=== PATIENT | female | born 1955 | race Caucasian/White ===

== ENCOUNTER 2016-11-15 12:49 | Outpatient (CLI) | payer OTHER ==
--- NOTE | 2016-11-15 15:50 | CT ---
CT CHEST PULMONARY SCAN: HISTORY: Lung screen. Smoker for 40 years but has recently quit. COMPARISON: None. FINDINGS: LUNG SCREENING SPECIFIC (LUNG-RADS): There are numerous sub-3 mm pulmonary nodules throughout the lungs. No 4 mm or greater pulmonary no dules. LUNG RADS CATEGORY S: POTENTIALLY SIGNIFICANT INCIDENTALS: None. PULMONARY INCIDENTALS: There are numerous micronodules scattered throughout the lungs, some of which are calcified. No pneumothorax or effusion. No focal airspace consolidation. OTHER INCIDENTALS: Low-grade coronary artery calcifications and aortic calcifications. There is a Schmorl's node at L1 . No suspicious lytic or blastic lesions in the skeleton. Evidence for old right anterior 2nd, 3rn d, 4th, 5th, and 6th rib fractures. Old right posterior 9th rib fracture and 10th rib fracture. Old left posterior 7th rib fracture. Upper abdomen is unremarkable. IMPRESSION: 1. Lung RADS category 2: Benign appearance or behavior. Continue annual screening with low-dose C T in 12 months. 2. Lung RADS category S: Negative. No new or unknown potentially significant incidental findings requiring urgent additional evaluation. 3. Incidental findings as above. POS: [facility]
== END 2016-11-15 12:50 | disposition home or self-care (01) ==
LOC: CT 12:49
PROVIDERS: ATTEND Family Medicine
DX: Z72.0 Tobacco use (principal)
CPT/HCPCS: G0297

== ENCOUNTER 2017-01-31 12:13 | Inpatient (IN) | payer SELFPAY ==
[2017-01-31 12:55] LABS: Hematocrit 43.2 % (36.0-47.0); Mean Platelet Volume 8.1 fL (7.4-10.4); Red Blood Cell (RBC) Count 3.88 mill/uL (4.20-5.40); White Blood Cell (WBC) Count 4.1 thou/uL (4.8-10.8)
[2017-01-31 13:08] LABS: ALT (SGPT) 279 U/L (8-55); AST (SGOT) 367 U/L (5-34); Alkaline Phosphatase 328 U/L (40-150); Anion Gap 14 mmol/L (10-20); BUN (Urea Nitrogen) 4 mg/dL (9.8-20.1); Calc. Creatinine Clearance 0 mL/min (70-130); Calcium 8.6 mg/dL (7.8-10.44); Carbon Dioxide 30 mmol/L (23-31); Chloride 93 mmol/L (98-107); Estimated GFR-MDRD 89; Globulin 4.2 g/dL (2.4-3.5); Lipase 128 U/L (8-78); Protein, Total 7.2 g/dL (6.0-8.3)
[2017-01-31 13:09] LABS: Macrocytosis MODERATE=16-30 cells (100X) (0-5/hpf); Neutrophil 62 % (42-75); Reactive Lymphocytes 1 % (0-10)
[2017-01-31] MEDS ORDERED: Ondansetron HCl/PF 4 MG/2 ML Vial ONE (13:13)
--- NOTE | 2017-01-31 13:20 | ULT ---
RIGHT UPPER QUADRANT ULTRASOUND: DATE: 01/31/17. HISTORY: Nausea, vomiting, and pain. FINDINGS: Multiple longitudinal and transverse images of the right upper quadrant of the abdomen were obtained using a multihertz curvilinear transducer. Real-time color flow images as well as spectral waveform Doppler analysis were used to evaluate the right upper quadrant. The liver somewhat lobular in appearance with heterogeneous echogenicity. This may represent some ch anges of cirrhosis. Gallbladder sludge is noted within the gallbladder. Some pericholecystic fluid is seen. There is a moderate degree of gallbladder wall thickening measuring approximately 3 mm. A small amount of free ascites is seen. The pancreas is not well visualized. The common bile duct i s of normal size measuring 5 mm. The right kidney is unremarkable. IMPRESSION: 1. Nodular appearance of the liver with some ascites. 2. Gallbladder wall thickening and sludge. POS: [facility]
[2017-01-31 13:46] LABS: Bilirubin Moderate (Negative); Blood, Urine Negative (Negative); Glucose, Urine (Dipstick) Negative (Negative); Ketone, Urine 15 mg/dL (Negative); Nitrite Positive (Negative); Protein, Urine (Dipstick) Trace mg/dL (Neg-Trace)
[2017-01-31 14:01] LABS: Bacteria/HPF 1+ HPF (None Seen); RBC/HPF None Seen HPF (0-3); Squamous Epithelial 0-3 HPF (0-3); WBC/HPF 0-3 HPF (0-3)
[2017-01-31 14:02] LABS: Hyaline Casts/LPF 0-3 HYALINE CAST LPF (0-3 Hyaline)
[2017-01-31] MEDS ORDERED: Potassium Chloride 40 MEQ in Sodium Chloride 0.9% 500 ML IVPB SCH (14:15)
[2017-01-31 15:45] LABS: Magnesium 1.4 mg/dL (1.6-2.6); Phosphorus 2.2 mg/dL (2.3-4.7)
[2017-01-31 15:48] LABS: Prothrombin Time 20.8 SEC (12.0-14.7)
[2017-01-31 15:49] LABS: PTT 41.9 SEC (22.9-36.1)
[2017-01-31] MEDS ORDERED: Ondansetron ODT 4 MG TAB SL PRN (15:50)
[2017-01-31] MEDS ORDERED: Ondansetron HCl/PF 4 MG/2 ML Vial IVP PRN ×2 (15:50→17:21)
[2017-01-31] MEDS ORDERED: Dextrose 5 % And 0.9 % NaCl 1,000 ML IV SCH (16:00)
[2017-01-31 17:04] VITALS: BMI 24.3
[2017-01-31] MEDS ORDERED: Mag-Al 1200 mg/1200 mg/30 ML UDCUP PO PRN (17:21)
[2017-01-31] MEDS ORDERED: cloNIDine 0.1 MG TAB PO PRN (17:21)
[2017-01-31] MEDS ORDERED: Labetalol HCl 100 MG/20 ML VIAL SLOW IVP PRN (17:21)
[2017-01-31] MEDS ORDERED: Bisacodyl 10 MG SUPP PR PRN (17:21)
[2017-01-31] MEDS ORDERED: Polyethylene Glycol 3350 17 GM Packet PO PRN (17:21)
[2017-01-31] MEDS ORDERED: Eucerin (Mineral Oil/Petrolatum,White) 30 gm Jar TOP PRN (17:21)
[2017-01-31] MEDS ORDERED: Calcium Carbonate 500 MG ChewTAB PO PRN (17:21)
[2017-01-31] MEDS ORDERED: Lorazepam 0.5 MG TAB PO PRN (17:21)
[2017-01-31] MEDS ORDERED: Ondansetron ODT 4 MG TAB PO PRN (17:21)
[2017-01-31] MEDS ORDERED: Loratadine 10 MG TAB PO PRN (17:21)
[2017-01-31] MEDS ORDERED: Folic Acid 1 MG TAB PO SCH (17:45)
--- NOTE | 2017-01-31 17:54 | CON ---
DATE OF CONSULTATION: 01/31/2017 REQUESTING PHYSICIAN: Dr. Borjas. REASON FOR CONSULTATION: Elevated LFTs. HISTORY OF PRESENT ILLNESS: Marii Pichardo is a 61-year-old woman who was admitted to the [facility] earlier today with symptoms of upper abdominal discomfort and poor appetite for the past week, found to have significantly elevated LFTs. She has a history of long-term heavy alcohol use. She s ays she will have at least 4 alcoholic beverages per day and this has been her pattern for many years . She has also been a long-term smoker, though she quit smoking about 3 months ago successfully. Th ere is no family history of gastrointestinal or liver illness. She has no chronic gastrointestinal s ymptoms except for some chronic reflux for which she has been taking omeprazole for a while. She was recently changed to pantoprazole without any significant change and chronic reflux symptoms; however , over the past week, she has been having some epigastric discomfort and fullness also increased gag reflex and feeling of fatigue. She has felt nauseated, though she has had no significant vomiting. Her oral intake has declined when symptoms started about a week ago. She quit drinking alcohol and s he says she have not had anything to drink for the past week. Symptoms continued to worsen and that prompted her presentation. She was found to have total bilirubin up to 6.0 with elevation in transam inases as well. AST 367, ALT 279, she appears coagulopathic as well as INR 1.7 and thrombocytopenic with platelets 73. She had an abdominal ultrasound and this demonstrated a lobular liver contour sug gestive of possible cirrhosis. The gallbladder wall is thickened at 3 mm and there is some perichole cystic fluid/ascites. There is sludge within the gallbladder, but the common bile duct is normal aneta meter 5 mm. She was evaluated by Dr. Ortega who does not feel this represents acute cholecystitis, but rather decompensation of cirrhosis. The patient is actually fairly comfortable. Her abdominal d iscomfort has all been in the epigastrium and not in the right upper quadrants. There have been no a ssociated fevers or change in bowel habits with this. REVIEW OF SYSTEMS: Full review of systems including constitutional, head, eyes, ears, nose, throat, GI, , cardiovascular, respiratory, musculoskeletal, and neurologic systems is negative except as no bronwyn in HPI. PAST MEDICAL HISTORY: GERD, hyperlipidemia, asthma. ALLERGIES: SULFA. OUTPATIENT MEDICATIONS: Omeprazole daily, vitamin D3, vitamin B complex. INPATIENT MEDICATIONS: Zofran p.r.n. SOCIAL HISTORY: The patient quit smoking about 3 months ago. She continues to drink alcohol at leas t 4 beverages per day. No drug use. FAMILY HISTORY: Negative for GI, liver illness, or malignancy. PHYSICAL EXAMINATION: VITAL SIGNS: Temperature 97.8, blood pressure 130/70, pulse 88, 99% oxygen saturation on room air. GENERAL: A 61-year-old woman lying in bed comfortably in no acute distress. SKIN: Mild jaundice. No rash visible or palpable. EYES: Mild scleral icterus. Extraocular movements intact. ENT: Mucous membranes moist, no oral lesions. LYMPH: No submandibular, supraclavicular lymphadenopathy. THYROID: Nontender to palpation. HEART: Regular rate and rhythm. LUNGS: Clear to auscultation bilaterally. ABDOMEN: Nondistended. Bowel sounds present. Soft. Some mild tenderness to palpation in the epiga strium, but no guarding, rebound tenderness. She is really not tender in the right upper quadrant. EXTREMITIES: No peripheral edema. VESSELS: Radial pulses 2+ bilaterally. NEUROLOGICAL: Cranial nerves II-XII intact bilaterally. LABORATORY STUDIES: Total bilirubin 6.0, alkaline phosphatase 328, AST 367, ALT 279, albumin 3.0, li pase 128. TSH 0.88. INR 1.7. Platelets 73, hemoglobin 14.2, WBC 4.1. BUN only 4, creatinine only 0.67. Looking back on lab work from 09/30/2016, she had a mild elevation in AST to 89, but otherwise normal LFTs at that time. IMAGING STUDIES: Abdominal ultrasound from earlier today shows lobular liver contour suggestive of c irrhosis. There is gallbladder wall thickening and pericholecystic fluid. A small amount of ascites . There is gallbladder sludge and common bile duct with normal diameter of 5 mm. ASSESSMENT AND PLAN: 1. Elevated liver function tests. 2. Chronic alcohol abuse. 3. Upper abdominal pain. 4. Probable cirrhosis. It is unclear to me to what degree her presenting symptoms are related to in itial decompensation of chronic liver disease versus acute gallbladder pathology. I agree that her p ain symptoms certainly are not very striking, but it does appear LFTs have dramatically elevated sinc e this past September. I suspect she certainly has alcohol related cirrhosis, and likely has some chron ic or subacute cholecystitis on top of that. Dr. Ortega has evaluated her and is not planning on an y cholecystectomy. With normal common bile duct, I do not think ERCP is warranted at this time. We should trend the LFTs daily. I will order further liver lab workup to be drawn tomorrow morning. We will trend her INR. If the patient's pain complaints are persistent and LFTs not declining, then we would further consider biliary pathology. Thank you for the consultation. Please call back with questions or concerns.
[2017-01-31] MEDS: K-Phos Neutral 250 MG TAB PO SCH ×2 (17:58→21:10)
[2017-01-31] MEDS: NS 0.9% w/ 40 MEQ KCL 1,000 ML IV SCH (17:59)
[2017-01-31] MEDS ORDERED: Phytonadione 10 MG/ML AMP PO SCH (18:00)
[2017-01-31] MEDS ORDERED: Potassium Chloride 10 MEQ TAB PO SCH (18:00)
[2017-01-31] MEDS ORDERED: Polyethylene Glycol 3350 17 GM Packet PO SCH (18:00)
--- NOTE | 2017-01-31 18:13 | HP ---
DATE OF ADMISSION: 01/31/2017 PRIMARY CARE PHYSICIAN: Demetris Piña MD CHIEF COMPLAINT: Abdominal discomfort with nausea, vomiting of approximately one week duration. HISTORY OF PRESENT ILLNESS: Patient is a 61-year-old female with chronic alcoholism, who presented to the emergency room with above complaints. Over the last one week, the patient has abdominal bloating with nausea and vomiting. Her last bowel movement was 4 days ago. The vomitus was nonbilious. She was unable to keep any food or liquid down due to this. The abdominal pain was mainly in the epigastric region, moderate in intensity, more or less constant without any aggravating or relieving factor. No fevers, chills, chest pain, palpitations, lightheadedness, dizziness or syncope reported. In the emergency room, initial vital signs showed temperature 98.5, respiration 18, pulse of 91, blood pressure 140/78 with O2 saturation 99% on room air. Her labs were consistent with total bilirubin of 6.0, AST of 367, ALT 279 with alkaline phosphatase 328. She was evaluated by General Surgery, Dr. Ortega for possible acute cholecystitis, which was later ruled out. Abdominal ultrasound showed nodular appearance of the liver with some myositis and gallbladder wall thickening with sludge. PAST MEDICAL HISTORY: 1. Hyperlipidemia. 2. Gastroesophageal reflux disease. 3. Chronic alcoholism. 4. Former smoker. 5. SULFA allergy. PAST SURGICAL HISTORY: 1. [facility], which was essentially negative except for internal hemorrhoids. 2. D&C in 1976. 3. Left breast biopsy in 1976. ALLERGIES: SULFA. CURRENT HOME MEDICATIONS: 1. Protonix 40 mg daily that was started 2 days ago by her PCP. 2. Lipitor 10 mg daily. 3. Multiple over the counter medications, she is unable to recall the names. SOCIAL HISTORY: Patient currently lives at home. No smoking. No current use of smoking, alcohol or drug use. She quit smoking in October of this year. She continues to drink 3-4 beers on a daily basis. She drinks liquor intermittently. Her last drink was approximately a week ago. She denies any history of withdrawal. She is . FAMILY HISTORY: Father with lung cancer. Mother with diabetes. She denies any history of GI malignancy or cirrhosis. REVIEW OF SYSTEMS: The following complete review of systems was negative, unless otherwise mentioned in the HPI or below: CONSTITUTIONAL: Weight loss or gain, ability to conduct usual activities. SKIN: Rash, itching. EYES: Double vision, pain. ENT/MOUTH: Nose bleeding, neck stiffness, pain, tenderness. CARDIOVASCULAR: Palpitations, dyspnea on exertion, orthopnea. RESPIRATORY: Shortness of breath, wheezing, cough, hemoptysis, fever or night sweats. GASTROINTESTINAL: Poor appetite, abdominal pain, heartburn, nausea, vomiting, constipation, or diarrhea. GENITOURINARY: Urgency, frequency, dysuria, nocturia. MUSCULOSKELETAL: Pain, swelling. NEUROLOGIC/PSYCHIATRIC: Anxiety, depression. ALLERGY/IMMUNOLOGIC: Skin rash, bleeding tendency. PHYSICAL EXAMINATION: VITAL SIGNS: As discussed above. GENERAL: A 61-year-old female in no apparent distress. Feels generally weak. HEENT: Head atraumatic, normocephalic. Sclerae mildly icteric. No oral lesion. NECK: Supple. No JVD appreciated. No carotid bruit. LUNGS: Showed diminished air entry at bases. No wheezing or rhonchi. Lungs were symmetrical. Trachea midline. HEART: S1, S2 present. Regular rate and rhythm. No murmurs, rubs or gallops appreciated. ABDOMEN: Soft, mild epigastric tenderness. No rebound or guarding. There was questionable shifting dullness, no flank tenderness. EXTREMITIES: No edema or calf tenderness. NEUROLOGIC: Grossly nonfocal, moves all 4 extremities, no asterixis. PSYCHIATRY: Alert, awake, oriented x3. SKIN: Warm and dry. LYMPH NODES: No palpable lymph nodes in the neck. PERIPHERAL VASCULAR: Radial pulses palpable bilaterally. MUSCULOSKELETAL: No joint swelling or tenderness. LABORATORY AND X-RAY FINDINGS: CBC showed WBC 4.1 with hemoglobin 14.2, platelet count of 73. PT of 20.8, INR 1.7, PTT 41.9. Chemistries showed sodium 134, potassium 2.8, chloride 93, bicarbonate of 30, BUN 4, creatinine 0.67 and glucose of 125. Magnesium 1.4, phosphorus 2.2. Lipase was 128. Urinalysis was negative for WBC. It showed 1+ bacteria with moderate amount of bilirubin. Abdominal ultrasound as discussed above. IMPRESSION: 1. Generalized weakness with nausea, vomiting, and abdominal discomfort ?etio 2. Abn LFTs probably due to Alcoholic Hepatitis . 3. Coagulopathy with thrombocytopenia secondary to #2 ?cirrhosis 4. Hypokalemia/Hypomagnesemia/Hypophosphatemia/Hyponatremia. 5. Chronic Alcoholism 6. Ascites prob due to ?cirrhosis 7. Gastroesophageal reflux disease on PPIs/Hyperlipidemia on statins. PLAN: The patient will be monitored on the medical floor. GI will be consulted. We will replace electrolytes. The patient was extensively counseled to quit drinking. Thiamine, folic acid, multivitamins. Recheck labs in a.m. Gentle IV hydration. Hold Statins due to Abn LFTs Plan of care was discussed with the patient and the family at the bedside. They stated understanding. MTDD
--- NOTE | 2017-01-31 18:14 | CON ---
DATE OF CONSULTATION: 01/31/2017 CHIEF COMPLAINT: Upper abdominal pain. HISTORY OF PRESENT ILLNESS: This is a 61-year-old female with a history of fairly acute onset of upp er abdominal pain. She states that it was sharp across the upper abdomen associated with nausea. He r sister says she has been vomiting on and off for 2 weeks. Seen in the Emergency Department, where she was found to have right upper quadrant pain specifically an ultrasound revealed question of thom cystitis. The patient denies previous known history of jaundice, pancreatitis. She states that she has seen someone for liver abnormalities in the past, but she is not sure of the details. She had pr evious [facility] by [facility], which she states is normal, but denies history of upper endoscopy, no known history of cirrhosis, jaundice, pancreatitis, or ascites. She states that she does drinks daily at least 2 beers a day and she has done for years. She is a former smoker. Lexie bejarano has not had a drink since last . PAST MEDICAL HISTORY: Includes GERD, hyperlipidemia, hypercholesterolemia, and COPD. PAST SURGICAL HISTORY: Breast biopsy, colonoscopy. SOCIAL HISTORY: Former smoker. Drinks daily. No other drugs. REVIEW OF SYSTEMS: Otherwise, negative unless described above. PHYSICAL EXAMINATION: VITAL SIGNS: Pulse 87, respirations 18, temperature 97.5, and blood pressure 114/76. HEENT: Sclerae are icteric. Oropharynx clear. NECK: No lymphadenopathy. CHEST: Clear. HEART: Regular rate and rhythm. ABDOMEN: Soft. She is tender across the upper abdomen, no guarding or rebound. No abdominal or ing uinal hernias. EXTREMITIES: No ischemia or edema to extremities. X-RAY FINDINGS: Ultrasound shows normal common bile duct, gallbladder wall thickening and sludge, bu t no stones, nodularity to the liver. LABORATORY DATA: White blood cell count is 4, hemoglobin 14, and platelet count is low at 73. INR i s 1.7, PT is 20, sodium 134, potassium 2.8, creatinine is 0.67. Bilirubin is 6. AST, ALT are 367 an d 279. Alkaline phosphatase 328, lipase 128, albumin is low at 3. ASSESSMENT: Upper abdominal pain could be biliary in nature; however, also concerned about question of acute liver insufficiency, cirrhosis given her thrombocytopenia, thickened gallbladder wall ultras ound, and nodularity to the liver on ultrasound to go along with this as well. Dr. Gregorio is going to see her. We will see what he thinks. If she does not have any ERCP in stone extraction, I would be available for cholecystectomy. We will follow with you.
[2017-01-31 18:16] LABS: Iron 73 ug/dL (50-170)
[2017-01-31] MEDS: Magnesium Sulfate 4 GM in Sodium Chloride 0.9% 250 ML 250 ML IVPB SCH ×2 (19:31→19:32)
[2017-01-31] MEDS: Docusate 100 MG CAP PO SCH (21:10)
[2017-02-01 05:46] LABS: Prothrombin Time 20.9 SEC (12.0-14.7)
[2017-02-01 06:30] LABS: ALT (SGPT) 230 U/L (8-55); AST (SGOT) 287 U/L (5-34); Alkaline Phosphatase 285 U/L (40-150); Anion Gap 11 mmol/L (10-20); BUN (Urea Nitrogen) 5 mg/dL (9.8-20.1); Bilirubin, Total 4.8 mg/dL (0.2-1.2); Calc. Creatinine Clearance 88 mL/min (70-130); Carbon Dioxide 28 mmol/L (23-31); Chloride 100 mmol/L (98-107); Estimated GFR-MDRD Greater than 90; Globulin 3.7 g/dL (2.4-3.5); Magnesium 2.3 mg/dL (1.6-2.6); Phosphorus 3.5 mg/dL (2.3-4.7); Protein, Total 6.3 g/dL (6.0-8.3)
[2017-02-01 07:28] LABS: Hematocrit 38.8 % (36.0-47.0); Mean Platelet Volume 8.8 fL (7.4-10.4); White Blood Cell (WBC) Count 4.1 thou/uL (4.8-10.8)
[2017-02-01] MEDS: Cyanocobalamin (Vitamin B-12) 1,000 MCG TAB PO SCH (07:52)
[2017-02-01] MEDS: Calcium Carbonate + Vit D 1 TAB PO SCH ×2 (07:52→18:49)
[2017-02-01] MEDS: Folic Acid 1 MG TAB PO SCH (07:52)
[2017-02-01] MEDS: Docusate 100 MG CAP PO SCH ×2 (07:53→20:46)
[2017-02-01] MEDS ORDERED: Potassium Chloride 10 MEQ TAB PO SCH (08:00)
[2017-02-01 08:36] LABS: Band 3 % (5-11); Macrocytosis SLIGHT = 6-15 cells (100X) (0-5/hpf); Neutrophil 55 % (42-75); Reactive Lymphocytes 10 % (0-10)
[2017-02-01] MEDS: K-Phos Neutral 250 MG TAB PO SCH ×4 (09:27→20:50)
[2017-02-01] MEDS: NS 0.9% w/ 40 MEQ KCL 1,000 ML IV SCH (09:27)
[2017-02-01] MEDS: Potassium Chloride 10 MEQ TAB PO SCH ×2 (12:06→18:49)
--- NOTE | 2017-02-01 13:34 | PRG ---
DATE OF SERVICE: 02/01/2017 GI INPATIENT DAILY PROGRESS NOTE SUBJECTIVE: Ms. Pichardo is feeling about the same. There is no fever, upper abdominal discomfort in the epigastrium persists, fairly mild, but today she is also complaining of some dysphagia to pills. She feels as if they are hanging up in the lower chest and says this has been going on for a few wee ks at least. There has been no nausea or vomiting. She had a bowel movement today. Her ammonia was elevated and she is being started on lactulose today. PHYSICAL EXAMINATION: VITAL SIGNS: Temperature 97.4, pulse 79, blood pressure 120/75, 97% oxygen saturation on room air. GENERAL: No acute distress. HEART: Regular rate and rhythm. LUNGS: Clear to auscultation bilaterally. ABDOMEN: Mildly distended, tympanitic to percussion. Soft, mild tenderness to palpation in the epig astrium, but no guarding, rebound tenderness. EXTREMITIES: No peripheral edema. LABORATORY STUDIES: WBC 4.1, hemoglobin 13.0, and platelets 58. INR 1.7. Sodium 136, potassium 3.1 , BUN 5, creatinine 0.61. Ferritin is elevated to 3281.47. Ammonia is elevated to 137, TIBC is low 145, iron 73. LFTs have declined a bit; total bilirubin 4.8, alkaline phosphatase 285, AST 287, and ALT 230. TSH is 0.88, total IgG 1725. Hepatitis B surface antigen and hepatitis C antibody are nega tive. Hepatitis A IgM is negative. Still awaiting AMA and ASMA. ASSESSMENT AND PLAN: 1. Alcoholic liver disease. 2. Cirrhosis with initial decompensation. 3. Hepatic encephalopathy. I had a long discussion with the patient and her sister today, it appear s that she does indeed have cirrhosis and this is her initial decompensation. She does indeed have s ome evidence of hepatic encephalopathy and has elevated ammonia level. Lactulose is being started to day. This should be titrated 2-3 loose bowel movements per day. If this is not tolerated or not sat isfactory, then we can add rifaximin 550 mg b.i.d. Note the negative viral hepatitis serologies. Aw aiting autoimmune markers. 4. Elevated ferritin could just be an acute phase reactant, but we will go ahead and order hereditar y hemochromatosis genetic testing to be performed with tomorrow morning's labs. I do suspect that th is is all due to alcoholic liver disease. 5. Dysphagia. 6. Upper abdominal pain. Her discomfort persists and she now has this new complaint of dysphagia. She certainly could have esophageal stricture or peptic ulcer disease. I think it would be reasonabl e to perform esophagogastroduodenoscopy this admission to further evaluate this, also rule out esopha geal varices. We will plan for esophagogastroduodenoscopy tomorrow. The patient is optimistic that she can completely quit alcohol from this point forward.
--- NOTE | 2017-02-01 20:51 | PDOC.PN ---
- Subjective Encounter Start Date: 02/01/17 Encounter Start Time: 15:30 Patient seen and examined. No new complaints. No overnight events. Nausea better - Objective Resuscitation Status: Resuscitation Status FULL:Full Resuscitation MAR Reviewed: Yes Vital Signs & Weight: Vital Signs (12 hours) Temp Pulse Resp BP Pulse Ox 02/01/17 16:00 97.8 F 88 16 126/80 97 02/01/17 11:31 97.4 F L 79 18 120/75 97 Weight Admit Weight 129 lb Weight 129 lb Result Diagrams: 02/01/17 03:59 02/01/17 03:59 Phys Exam - Physical Examination Constitutional: NAD Respiratory: no wheezing, no rales, no rhonchi Cardiovascular: RRR, no rub Gastrointestinal: soft, non-tender, no distention, positive bowel sounds Musculoskeletal: no edema Neurological: non-focal, normal sensation, moves all 4 limbs Dx/Plan - Plan IMPRESSION: 1. Generalized weakness with nausea, vomiting, and abdominal discomfort ?etio 2. Abn LFTs probably due to Alcoholic Hepatitis - improving 3. Coagulopathy with thrombocytopenia secondary to #2 ?cirrhosis 4. Hypokalemia/Hypomagnesemia/Hypophosphatemia/Hyponatremia. 5. Chronic Alcoholism - counselled 6. Ascites prob due to ?cirrhosis 7. Gastroesophageal reflux disease on PPIs/Hyperlipidemia on statins. 8. Hepatic Encephalopathy 9. Swallowing dysfunction 10. Elevated ferritin - r/o hemochromatosis PLAN: * EGD in AM * Start Lactulose * Cont current meds as below * Cont IVF * GI following Review of Systems - Review of Systems Respiratory: negative: Cough, Dry, Shortness of Breath, Hemoptysis, SOB with Excertion, Pleuritic Pain, Sputum, Wheezing Cardiovascular: negative: chest pain, palpitations, orthopnea, paroxysmal nocturnal dyspnea, edema, light headedness - Medications/Allergies Allergies/Adverse Reactions: Allergies Allergy/AdvReac Type Severity Reaction Status Date / Time Sulfa (Sulfonamide Allergy Verified 01/31/17 17:24 Antibiotics) Medications: Current Medications Al Hydroxide/Mg Hydroxide (Maalox) 30 ml PO Q6H PRN PRN Reason: Heartburn or Indigestion Albuterol/Ipratropium (Duoneb) 3 ml NEB [id number] PRN PRN Reason: SOB &/or Wheezing Bisacodyl (Dulcolax) 10 mg PA Q24H PRN PRN Reason: Constipation Calcium Carbonate (Tums) 1,000 mg PO Q4H PRN PRN Reason: Heartburn or Indigestion Calcium/Vitamin D (Caltrate 600 + Vit D) 1 tab PO BID-[facility] Last Admin: 02/01/17 18:49 Dose: 1 tab Clonidine (Catapres) 0.1 mg PO Q4H PRN PRN Reason: Systolic BP > 180 Cyanocobalamin (Vitamin B-12) 1,000 mcg PO DAILY [facility] Last Admin: 02/01/17 07:52 Dose: 1,000 mcg Docusate Sodium (Colace) 100 mg PO BID [facility] Last Admin: 02/01/17 07:53 Dose: 100 mg Folic Acid (Folvite) 1 mg PO DAILY [facility] Last Admin: 02/01/17 07:52 Dose: 1 mg Potassium Chloride/Sodium Chloride (Ns 0.9% W/ 40 Meq Kcl) 1,000 mls @ 50 mls/ hr IV .Q20H [facility] Last Admin: 02/01/17 09:27 Dose: 1,000 mls Labetalol HCl (Normodyne) 10 mg SLOW IVP Q4H PRN PRN Reason: Systolic BP > 180 Lactulose (Lactulose) 10 gm PO TID [facility] Last Admin: 02/01/17 15:07 Dose: 10 gm Loratadine (Claritin) 10 mg PO DAILYPRN PRN PRN Reason: Sinus Symptoms Lorazepam (Ativan) 0.5 mg PO Q4H PRN PRN Reason: ASE >9 Last Admin: 01/31/17 21:09 Dose: 0.5 mg Mineral Oil/White Petrolatum (Eucerin Cream) 0 gm TOP BIDPRN PRN PRN Reason: Dry Skin Ondansetron HCl (Zofran Odt) 4 mg PO Q6H PRN PRN Reason: Nausea/Vomiting Ondansetron HCl (Zofran) 4 mg IVP Q6H PRN PRN Reason: Nausea/Vomiting Pantoprazole Sodium (Protonix) 40 mg PO DAILY [facility] Last Admin: 02/01/17 07:52 Dose: 40 mg Phosphorus (Kphos Neutral) 500 mg PO QID-[facility] Last Admin: 02/01/17 18:49 Dose: 500 mg Polyethylene Glycol (Miralax) 17 gm PO DAILY PRN PRN Reason: Constipation Potassium Chloride (Klor-Con 10) 20 meq PO TID-WM [facility] Last Admin: 02/01/17 18:49 Dose: 20 meq Thiamine HCl (Thiamine) 100 mg PO DAILY [facility] Last Admin: 02/01/17 07:51 Dose: 100 mg
[2017-02-02] MEDS: NS 0.9% w/ 40 MEQ KCL 1,000 ML IV SCH (06:25)
[2017-02-02] MEDS ORDERED: Propofol 200 MG/20 ML VIAL ONE (09:37)
[2017-02-02] MEDS ORDERED: Lidocaine 1% PF 5 ML VIAL ONE (09:37)
[2017-02-02] MEDS ORDERED: Ondansetron HCl/PF 4 MG/2 ML Vial IVP PRN (09:39)
[2017-02-02] MEDS ORDERED: Promethazine HCl 25 MG/ML VIAL SLOW IVP PRN (09:39)
[2017-02-02] MEDS ORDERED: Promethazine HCl 25 MG/ML VIAL IM PRN (09:39)
[2017-02-02] MEDS: K-Phos Neutral 250 MG TAB PO SCH ×4 (11:25→21:16)
[2017-02-02] MEDS: Cyanocobalamin (Vitamin B-12) 1,000 MCG TAB PO SCH (11:25)
[2017-02-02] MEDS: Calcium Carbonate + Vit D 1 TAB PO SCH ×2 (11:25→18:43)
[2017-02-02] MEDS: Potassium Chloride 10 MEQ TAB PO SCH ×2 (11:25→11:28)
[2017-02-02] MEDS: Folic Acid 1 MG TAB PO SCH (11:27)
[2017-02-02] MEDS: Docusate 100 MG CAP PO SCH ×2 (11:28→21:17)
[2017-02-02] MEDS ORDERED: Furosemide 20 MG TAB PO SCH (13:30)
[2017-02-02] MEDS ORDERED: Spironolactone 25 MG TAB PO SCH (13:30)
--- NOTE | 2017-02-02 16:28 | OP ---
DATE OF PROCEDURE: 02/02/2017 OPERATIVE PROCEDURE: Esophagogastroduodenoscopy with biopsy. PREOPERATIVE DIAGNOSES: A 61-year-old female with dysphagia, abdominal discomfort and abdo brittney bloating undergoing esophagogastroduodenoscopy. POSTOPERATIVE DIAGNOSES: 1. 1-2+ distal esophageal varices, not big enough to band. 2. Hypertensive portal gastropathy with diffusely hyperemic, edematous mucosa throughout the stomach . 3. Otherwise, normal exam. PROCEDURE IN DETAIL: The patient was placed on her left lateral position and was given sedation by [facility] Anesthesia Department. A [employer] video gastroscope under direct vision was passed down the orophar ynx, past the gastroesophageal junction, into stomach and subsequently the descending duodenum. The esophageal mucosa appeared normal. At the distal esophagus, the patient was found to have small vari cosities which were not big enough to band. The GE junction, no pathology. No esophageal stricture seen. The patient had diffuse hypertensive portal gastropathy. The gastric mucosa was diffusely hyp eremic and edematous. There were no gastric varices. The fundus and cardia, no pathology seen. The gastric antrum, no pathology seen. Biopsies of the gastric body. The duodenal bulb and descending duodenum, no pathology seen. The stomach was decompressed and the scope removed. RECOMMENDATIONS: 1. Low sodium diet. 2. Start patient on diuretics with Lasix and Aldactone.
[2017-02-02] MEDS: Spironolactone 25 MG TAB PO SCH (18:43)
--- NOTE | 2017-02-02 22:33 | PDOC.PN ---
- Subjective Encounter Start Date: 02/02/17 Encounter Start Time: 12:00 Patient seen and examined. No new complaints. No overnight events - Objective Resuscitation Status: Resuscitation Status FULL:Full Resuscitation MAR Reviewed: Yes Vital Signs & Weight: Vital Signs (12 hours) Temp Pulse Resp BP BP BP BP 02/02/17 21:05 97.9 F 82 18 129/82 02/02/17 16:00 98 F 84 16 121/70 121/70 121/70 02/02/17 12:00 97.5 F L 85 16 130/82 130/82 02/02/17 11:53 97.5 F L 85 16 130/82 Pulse Ox 02/02/17 21:05 96 02/02/17 16:00 97 02/02/17 12:00 98 02/02/17 11:53 Weight Admit Weight 129 lb Weight 129 lb Result Diagrams: 02/03/17 03:59 02/03/17 03:59 Phys Exam - Physical Examination Constitutional: NAD Respiratory: no wheezing, no rhonchi Cardiovascular: RRR, no rub Gastrointestinal: soft, non-tender, no distention, positive bowel sounds Musculoskeletal: no edema Neurological: moves all 4 limbs Dx/Plan - Plan DVT proph w/SCDs IMPRESSION: 1. Generalized weakness with nausea, vomiting, and abdominal discomfort - improving - multifactorial 2. Abn LFTs probably due to Alcoholic Hepatitis/Cirrhosis 3. Coagulopathy with thrombocytopenia secondary to #2 cirrhosis 4. Hypokalemia/Hypomagnesemia/Hypophosphatemia/Hyponatremia - on replacement 5. Chronic Alcoholism - counselled 6. Ascites prob due to cirrhosis 7. Gastroesophageal reflux disease on PPIs/Hyperlipidemia on statins. 8. Hepatic Encephalopathy - on Lactulose 9. Swallowing dysfunction 10. Elevated ferritin - r/o hemochromatosis PLAN: * s/p EGD - portal gastropathy * Cont Lactulose * Cont current meds as below * DC IVF * GI following * Cont to monitor * DC planning Review of Systems - Medications/Allergies Allergies/Adverse Reactions: Allergies Allergy/AdvReac Type Severity Reaction Status Date / Time Sulfa (Sulfonamide Allergy Verified 01/31/17 17:24 Antibiotics) Medications: Current Medications Al Hydroxide/Mg Hydroxide (Maalox) 30 ml PO Q6H PRN PRN Reason: Heartburn or Indigestion Albuterol/Ipratropium (Duoneb) 3 ml NEB [id number] PRN PRN Reason: SOB &/or Wheezing Bisacodyl (Dulcolax) 10 mg [place] Q24H PRN PRN Reason: Constipation Calcium Carbonate (Tums) 1,000 mg PO Q4H PRN PRN Reason: Heartburn or Indigestion Calcium/Vitamin D (Caltrate 600 + Vit D) 1 tab PO BID-[facility] Last Admin: 02/02/17 18:43 Dose: 1 tab Clonidine (Catapres) 0.1 mg PO Q4H PRN PRN Reason: Systolic BP > 180 Cyanocobalamin (Vitamin B-12) 1,000 mcg PO DAILY [facility] Last Admin: 02/02/17 11:25 Dose: Not Given Docusate Sodium (Colace) 100 mg PO BID [facility] Last Admin: 02/02/17 21:17 Dose: 100 mg Folic Acid (Folvite) 1 mg PO DAILY [facility] Last Admin: 02/02/17 11:27 Dose: 1 mg Furosemide (Lasix) 20 mg PO DAILY [facility] Labetalol HCl (Normodyne) 10 mg SLOW IVP Q4H PRN PRN Reason: Systolic BP > 180 Lactulose (Lactulose) 10 gm PO TID [facility] Last Admin: 02/02/17 21:17 Dose: 10 gm Loratadine (Claritin) 10 mg PO DAILYPRN PRN PRN Reason: Sinus Symptoms Lorazepam (Ativan) 0.5 mg PO Q4H PRN PRN Reason: ASE >9 Last Admin: 01/31/17 21:09 Dose: 0.5 mg Mineral Oil/White Petrolatum (Eucerin Cream) 0 gm TOP BIDPRN PRN PRN Reason: Dry Skin Ondansetron HCl (Zofran Odt) 4 mg PO Q6H PRN PRN Reason: Nausea/Vomiting Ondansetron HCl (Zofran) 4 mg IVP Q6H PRN PRN Reason: Nausea/Vomiting Pantoprazole Sodium (Protonix) 40 mg PO DAILY [facility] Last Admin: 02/02/17 11:24 Dose: 40 mg Phosphorus (Kphos Neutral) 500 mg PO QID-[facility] Last Admin: 02/02/17 21:16 Dose: 500 mg Polyethylene Glycol (Miralax) 17 gm PO DAILY PRN PRN Reason: Constipation Spironolactone (Aldactone) 25 mg PO BID-[facility] Last Admin: 02/02/17 18:43 Dose: 25 mg Thiamine HCl (Thiamine) 100 mg PO DAILY [facility] Last Admin: 02/02/17 11:27 Dose: Not Given
[2017-02-03 05:37] LABS: ALT (SGPT) 181 U/L (8-55); AST (SGOT) 197 U/L (5-34); Alkaline Phosphatase 267 U/L (40-150); Anion Gap 11 mmol/L (10-20); BUN (Urea Nitrogen) 8 mg/dL (9.8-20.1); Calc. Creatinine Clearance 86 mL/min (70-130); Calcium 8.6 mg/dL (7.8-10.44); Carbon Dioxide 26 mmol/L (23-31); Chloride 104 mmol/L (98-107); Estimated GFR-MDRD Greater than 90; Globulin 3.7 g/dL (2.4-3.5); Protein, Total 6.4 g/dL (6.0-8.3)
[2017-02-03 05:52] LABS: Hematocrit 39.1 % (36.0-47.0); Mean Platelet Volume 8.9 fL (7.4-10.4); Neutrophil 47 % (42-75); Red Blood Cell (RBC) Count 3.46 mill/uL (4.20-5.40); White Blood Cell (WBC) Count 4.7 thou/uL (4.8-10.8)
[2017-02-03] MEDS ORDERED: Furosemide 20 MG TAB PO SCH ×2 (09:00→11:15)
[2017-02-03] MEDS: Spironolactone 25 MG TAB PO SCH ×2 (09:22→17:48)
[2017-02-03] MEDS: Docusate 100 MG CAP PO SCH (09:22)
[2017-02-03] MEDS: Cyanocobalamin (Vitamin B-12) 1,000 MCG TAB PO SCH (09:22)
[2017-02-03] MEDS: K-Phos Neutral 250 MG TAB PO SCH (09:23)
[2017-02-03] MEDS: Folic Acid 1 MG TAB PO SCH (09:23)
[2017-02-03] MEDS: Calcium Carbonate + Vit D 1 TAB PO SCH ×2 (09:23→17:48)
[2017-02-03] MEDS ORDERED: Rifaximin 550 MG TAB PO SCH (11:15)
[2017-02-03] MEDS ORDERED: Spironolactone 25 MG TAB PO SCH (11:45)
[2017-02-03] MEDS: Rifaximin 550 MG TAB PO SCH (20:10)
--- NOTE | 2017-02-03 20:32 | PDOC.PN ---
- Subjective Encounter Start Date: 02/03/17 Encounter Start Time: 12:00 Patient seen and examined. Abd distention/bloating +. No overnight events - Objective Resuscitation Status: Resuscitation Status FULL:Full Resuscitation MAR Reviewed: Yes Vital Signs & Weight: Vital Signs (12 hours) Temp Pulse Resp BP BP Pulse Ox 02/03/17 17:07 98.1 F 92 16 120/76 97 02/03/17 16:00 98.1 F 92 16 120/76 97 02/03/17 12:00 98.9 F 97 16 135/77 97 02/03/17 11:39 98.1 F 86 16 118/75 96 Weight Admit Weight 129 lb Weight 129 lb I&O: 02/02/17 02/03/17 02/04/17 06:59 06:59 06:59 Intake Total 1154 Balance 1154 Result Diagrams: 02/03/17 03:59 02/03/17 03:59 Phys Exam - Physical Examination Constitutional: NAD Respiratory: no wheezing, no rhonchi Cardiovascular: RRR, no rub Gastrointestinal: soft, non-tender, positive bowel sounds shifting dullness + Musculoskeletal: no edema Neurological: non-focal, moves all 4 limbs Dx/Plan - Plan incentive spirometry, out of bed/ambulate, DVT proph w/SCDs IMPRESSION: 1. Generalized weakness with nausea, vomiting, and abdominal discomfort - improving 2. Abn LFTs/Alcoholic Hepatitis/Cirrhosis 3. Portal gastropathy/Coagulopathy with thrombocytopenia secondary to cirrhosis 4. Hypokalemia/Hypomagnesemia/Hypophosphatemia/Hyponatremia - on replacement 5. Chronic Alcoholism - counselled 6. Ascites ?symptomatic 7. Hepatic Encephalopathy - on Lactulose 8. Elevated ferritin - r/o hemochromatosisGastroesophageal reflux disease on PPIs/Hyperlipidemia on statins. PLAN: * Cont Lactulose - increase dose * Add Rifaximin * Increase Lasix/Aldactone * AM labs * Cont current meds as below * GI following Review of Systems - Review of Systems Respiratory: SOB with Excertion. negative: Cough, Dry, Shortness of Breath, Hemoptysis, Pleuritic Pain, Sputum, Wheezing Cardiovascular: negative: chest pain, palpitations, orthopnea, paroxysmal nocturnal dyspnea, edema, light headedness - Medications/Allergies Allergies/Adverse Reactions: Allergies Allergy/AdvReac Type Severity Reaction Status Date / Time Sulfa (Sulfonamide Allergy Verified 01/31/17 17:24 Antibiotics) Medications: Current Medications Al Hydroxide/Mg Hydroxide (Maalox) 30 ml PO Q6H PRN PRN Reason: Heartburn or Indigestion Albuterol/Ipratropium (Duoneb) 3 ml NEB [id number] PRN PRN Reason: SOB &/or Wheezing Bisacodyl (Dulcolax) 10 mg [place] Q24H PRN PRN Reason: Constipation Calcium Carbonate (Tums) 1,000 mg PO Q4H PRN PRN Reason: Heartburn or Indigestion Calcium/Vitamin D (Caltrate 600 + Vit D) 1 tab PO BID-[facility] Last Admin: 02/03/17 17:48 Dose: 1 tab Clonidine (Catapres) 0.1 mg PO Q4H PRN PRN Reason: Systolic BP > 180 Cyanocobalamin (Vitamin B-12) 1,000 mcg PO DAILY [facility] Last Admin: 02/03/17 09:22 Dose: 1,000 mcg Folic Acid (Folvite) 1 mg PO DAILY [facility] Last Admin: 02/03/17 09:23 Dose: 1 mg Furosemide (Lasix) 40 mg PO DAILY-[facility] Labetalol HCl (Normodyne) 10 mg SLOW IVP Q4H PRN PRN Reason: Systolic BP > 180 Lactulose (Lactulose) 10 gm PO QID [facility] Last Admin: 02/03/17 20:10 Dose: 10 gm Loratadine (Claritin) 10 mg PO DAILYPRN PRN PRN Reason: Sinus Symptoms Mineral Oil/White Petrolatum (Eucerin Cream) 0 gm TOP BIDPRN PRN PRN Reason: Dry Skin Ondansetron HCl (Zofran Odt) 4 mg PO Q6H PRN PRN Reason: Nausea/Vomiting Ondansetron HCl (Zofran) 4 mg IVP Q6H PRN PRN Reason: Nausea/Vomiting Pantoprazole Sodium (Protonix) 40 mg PO DAILY [facility] Last Admin: 02/03/17 09:22 Dose: 40 mg Polyethylene Glycol (Miralax) 17 gm PO DAILY PRN PRN Reason: Constipation Rifaximin (Xifaxan) 550 mg PO BID [facility] Last Admin: 02/03/17 20:10 Dose: 550 mg Spironolactone (Aldactone) 50 mg PO BID-[facility] Last Admin: 02/03/17 17:48 Dose: 50 mg Thiamine HCl (Thiamine) 100 mg PO DAILY [facility] Last Admin: 02/03/17 09:22 Dose: 100 mg
[2017-02-04 04:24] LABS: ALT (SGPT) 168 U/L (8-55); AST (SGOT) 175 U/L (5-34); Alkaline Phosphatase 250 U/L (40-150); Anion Gap 13 mmol/L (10-20); BUN (Urea Nitrogen) 8 mg/dL (9.8-20.1); Bilirubin, Total 6.1 mg/dL (0.2-1.2); Calc. Creatinine Clearance 87 mL/min (70-130); Calcium 9.1 mg/dL (7.8-10.44); Carbon Dioxide 26 mmol/L (23-31); Chloride 104 mmol/L (98-107); Estimated GFR-MDRD Greater than 90; Globulin 3.9 g/dL (2.4-3.5); Magnesium 1.1 mg/dL (1.6-2.6); Phosphorus 3.4 mg/dL (2.3-4.7); Protein, Total 6.6 g/dL (6.0-8.3)
[2017-02-04 06:03] LABS: Band 3 % (5-11); Hematocrit 41.5 % (36.0-47.0); Mean Platelet Volume 8.9 fL (7.4-10.4); Neutrophil 44 % (42-75); Red Blood Cell (RBC) Count 3.69 mill/uL (4.20-5.40); Target Cells SLIGHT = 2-5 cells (100X) (0-1/hpf); White Blood Cell (WBC) Count 4.7 thou/uL (4.8-10.8)
[2017-02-04] MEDS ORDERED: Magnesium Sulfate 4 GM in Sodium Chloride 0.9% 250 ML 250 ML IVPB SCH (08:00)
[2017-02-04] MEDS: Calcium Carbonate + Vit D 1 TAB PO SCH ×2 (09:05→17:57)
[2017-02-04] MEDS: Cyanocobalamin (Vitamin B-12) 1,000 MCG TAB PO SCH (09:05)
[2017-02-04] MEDS: Furosemide 40 MG TAB PO SCH (09:05)
[2017-02-04] MEDS: Folic Acid 1 MG TAB PO SCH (09:05)
[2017-02-04] MEDS: Rifaximin 550 MG TAB PO SCH ×2 (09:05→20:54)
[2017-02-04] MEDS: Spironolactone 25 MG TAB PO SCH ×2 (09:05→17:57)
[2017-02-04] MEDS ORDERED: traMADol HCl 50 MG TAB PO PRN (11:10)
--- NOTE | 2017-02-04 11:48 | PDOC.PN ---
- Subjective Encounter Start Date: 02/04/17 Encounter Start Time: 11:00 Patient seen and examined. Abd distention/bloating. No overnight events - Objective Resuscitation Status: Resuscitation Status FULL:Full Resuscitation MAR Reviewed: Yes Vital Signs & Weight: Vital Signs (12 hours) Temp Pulse Resp BP Pulse Ox 02/04/17 08:00 98.3 F 98 16 124/76 94 L Weight Admit Weight 129 lb Weight 129 lb I&O: 02/03/17 02/04/17 02/05/17 06:59 06:59 06:59 Intake Total 1504 Balance 1504 Result Diagrams: 02/04/17 03:31 02/04/17 03:31 Phys Exam - Physical Examination Constitutional: NAD Respiratory: no wheezing, no rhonchi Cardiovascular: RRR, no rub Gastrointestinal: soft, positive bowel sounds distended, shifting dullness + Musculoskeletal: no edema Neurological: moves all 4 limbs Dx/Plan - Plan out of bed/ambulate, DVT proph w/SCDs IMPRESSION: 1. Generalized weakness with nausea, vomiting, and abdominal discomfort 2. Abn LFTs/Alcoholic Hepatitis/Cirrhosis 3. Portal gastropathy/Coagulopathy with thrombocytopenia secondary to cirrhosis 4. Hypokalemia/Hypomagnesemia/Hypophosphatemia/Hyponatremia - on replacement 5. Chronic Alcoholism - counselled 6. Ascites ?symptomatic 7. Hepatic Encephalopathy - on Lactulose. Ammonia 76 8. Elevated ferritin/Gastroesophageal reflux disease on PPIs/Hyperlipidemia on statins. PLAN: * GI following * Increase Lactulose dose * Cont Rifaximin * Cont Lasix/Aldactone * AM labs * Cont current meds as below * No Heparin due to low platelets. Review of Systems - Review of Systems Respiratory: negative: Cough, Dry, Shortness of Breath, Hemoptysis, SOB with Excertion, Pleuritic Pain, Sputum, Wheezing Cardiovascular: negative: chest pain, palpitations, orthopnea, paroxysmal nocturnal dyspnea, edema, light headedness - Medications/Allergies Allergies/Adverse Reactions: Allergies Allergy/AdvReac Type Severity Reaction Status Date / Time Sulfa (Sulfonamide Allergy Verified 01/31/17 17:24 Antibiotics) Medications: Current Medications Al Hydroxide/Mg Hydroxide (Maalox) 30 ml PO Q6H PRN PRN Reason: Heartburn or Indigestion Albuterol/Ipratropium (Duoneb) 3 ml NEB [id number] PRN PRN Reason: SOB &/or Wheezing Bisacodyl (Dulcolax) [address] Q24H PRN PRN Reason: Constipation Calcium Carbonate (Tums) 1,000 mg PO Q4H PRN PRN Reason: Heartburn or Indigestion Calcium/Vitamin D (Caltrate 600 + Vit D) 1 tab PO BID-[facility] Last Admin: 02/04/17 09:05 Dose: 1 tab Clonidine (Catapres) 0.1 mg PO Q4H PRN PRN Reason: Systolic BP > 180 Cyanocobalamin (Vitamin B-12) 1,000 mcg PO DAILY [facility] Last Admin: 02/04/17 09:05 Dose: 1,000 mcg Folic Acid (Folvite) 1 mg PO DAILY [facility] Last Admin: 02/04/17 09:05 Dose: 1 mg Furosemide (Lasix) 40 mg PO DAILY-[facility] Last Admin: 02/04/17 09:05 Dose: 40 mg Labetalol HCl (Normodyne) 10 mg SLOW IVP Q4H PRN PRN Reason: Systolic BP > 180 Lactulose (Lactulose) 20 gm PO QID [facility] Loratadine (Claritin) 10 mg PO DAILYPRN PRN PRN Reason: Sinus Symptoms Mineral Oil/White Petrolatum (Eucerin Cream) 0 gm TOP BIDPRN PRN PRN Reason: Dry Skin Ondansetron HCl (Zofran Odt) 4 mg PO Q6H PRN PRN Reason: Nausea/Vomiting Ondansetron HCl (Zofran) 4 mg IVP Q6H PRN PRN Reason: Nausea/Vomiting Pantoprazole Sodium (Protonix) 40 mg PO DAILY [facility] Last Admin: 02/04/17 09:05 Dose: 40 mg Polyethylene Glycol (Miralax) 17 gm PO DAILY PRN PRN Reason: Constipation Rifaximin (Xifaxan) 550 mg PO BID [facility] Last Admin: 02/04/17 09:05 Dose: 550 mg [facility] ([facility]) [facility] Last Admin: 02/04/17 09:05 Dose: 50 mg Thiamine HCl (Thiamine) 100 mg PO DAILY [facility] Last Admin: 02/04/17 09:05 Dose: 100 mg Tramadol HCl (Ultram) 50 mg PO Q8H PRN PRN Reason: Moderate Pain (4-6) Last Admin: 02/04/17 11:31 Dose: 50 mg
[2017-02-05 03:39] LABS: ALT (SGPT) 150 U/L (8-55); AST (SGOT) 149 U/L (5-34); Alkaline Phosphatase 242 U/L (40-150); Anion Gap 10 mmol/L (10-20); BUN (Urea Nitrogen) 10 mg/dL (9.8-20.1); Bilirubin, Total 6.1 mg/dL (0.2-1.2); Calc. Creatinine Clearance 88 mL/min (70-130); Calcium 8.8 mg/dL (7.8-10.44); Carbon Dioxide 28 mmol/L (23-31); Chloride 102 mmol/L (98-107); Estimated GFR-MDRD Greater than 90; Globulin 3.9 g/dL (2.4-3.5); Magnesium 1.3 mg/dL (1.6-2.6); Phosphorus 2.8 mg/dL (2.3-4.7); Protein, Total 6.5 g/dL (6.0-8.3)
[2017-02-05 03:44] LABS: Anisocytosis SLIGHT = 6-15 cells (100X) (0-5/hpf); Hematocrit 42.1 % (36.0-47.0); Macrocytosis MODERATE=16-30 cells (100X) (0-5/hpf); Mean Platelet Volume 8.3 fL (7.4-10.4); Neutrophil 54 % (42-75); White Blood Cell (WBC) Count 5.8 thou/uL (4.8-10.8)
[2017-02-05] MEDS: Spironolactone 25 MG TAB PO SCH (07:44)
[2017-02-05] MEDS: Cyanocobalamin (Vitamin B-12) 1,000 MCG TAB PO SCH (07:44)
[2017-02-05] MEDS: Folic Acid 1 MG TAB PO SCH (07:44)
[2017-02-05] MEDS: Rifaximin 550 MG TAB PO SCH (07:44)
[2017-02-05] MEDS: Furosemide 40 MG TAB PO SCH (07:45)
[2017-02-05] MEDS: Calcium Carbonate + Vit D 1 TAB PO SCH (07:45)
[2017-02-05] MEDS ORDERED: Magnesium Sulfate 4 GM in Sodium Chloride 0.9% 250 ML 250 ML IVPB SCH (08:00)
[2017-02-05 08:03] VITALS: BP 129/81; TEMP 98
--- NOTE | 2017-02-05 11:35 | PRG ---
DATE OF SERVICE: 02/05/2017 SUBJECTIVE: Ms. Pichardo did pretty well over the weekend. Abdominal discomfort has declined, nausea has improved. She is tolerating her diet. She continues to have some mild abdominal distention. Lexie bejarano does not like the lactulose very much, but is tolerating it. She has been mentally clear. OBJECTIVE: VITAL SIGNS: Temperature 98.0, pulse 98, blood pressure 129/81, 92% oxygen saturation on room air. GENERAL: No acute distress, mild jaundice. HEART: Regular rate and rhythm. LUNGS: Clear to auscultation bilaterally. ABDOMEN: Mild distention, some dullness to percussion in the flanks, nontender to palpation. EXTREMITIES: No peripheral edema. LABORATORY STUDIES: WBC 5.8, hemoglobin 13.5, platelets 56. INR 1.7. Sodium 136, potassium 3.5, BU N 10, creatinine 0.61, total bilirubin is stable at 6.1. All other LFTs have declined, alkaline phos phatase 242, AST of 149, ALT 150. Ammonia 87, albumin 2.6. CHRIS came back negative. Viral hepatitis serologies came back nonreactive. Recall ferritin was 3281.47 with iron 73, TIBC 145. ASSESSMENT AND PLAN: 1. Alcoholic cirrhosis, initial decompensation. 2. Alcohol abuse, chcf, the patient is optimistic that she is going to be able to quit this com pletely starting now. 3. Hepatic encephalopathy, mild. I discussed with her that she does need to continue to take the la ctulose, titrate it to 2-3 loose bowel movements per day. This ought to be enough to keep her out of trouble. The rifaximin is not going to be affordable for her, it appears, but again, the lactulose ought to be enough if she takes it properly. 4. Small distal esophageal varices. This was seen by Dr. Morgan on her recent EGD last Saturday. There were no other abnormalities. These were not big enough to band. We will plan for surveillan ce EGDs as an outpatient in 1 year. 5. Ascites, mild. The patient has been started on diuretics here. Her weight is stable. Upon disc harge continue with Lasix 40 mg daily, and spironolactone 100 mg daily. We will follow her up in clinic in a couple of weeks. We will plan to repeat iron studies and a CMP at that time. We will also get genetic testing to rule out hemochromatosis given the elevated ferrit in, though this likely represents an acute phase reactant. From a GI perspective, I think the patient could be discharged from the hospital today with close fol low up with her primary physician, Dr. Piña and also in our clinic.
--- NOTE | 2017-02-05 22:35 | DIS ---
DATE OF DISCHARGE: 02/05/2017 DISCHARGE DISPOSITION: Home. FOLLOWUP: 1. Follow up with primary care physician, Dr. Demetris Piña in 1 week. 2. Follow up with Gastroenterology, Dr. Gregorio, in 1-2 weeks. ALLERGIES: The patient is allergic to SULFA. The patient was seen on the day of discharge. Denies any new complaints. No chest pain, shortness o f breath, palpitations. Appears comfortable getting discharged. DISCHARGE MEDICATIONS: Vitamin B12 1000 mcg daily, calcium with vitamin D 1 tablet b.i.d., folic aci d 1 mg daily, Lasix 40 mg daily, lactulose as needed for 4 bowel movements a day, Slow-Mag 128 mg b.i .d., omeprazole 40 mg daily, Aldactone 50 mg b.i.d., thiamine 100 mg daily. Base met after 1 week is recommended. Primary care physician advised to follow. Please note that th e patient will need refills on Lasix and Aldactone. BRIEF HOSPITAL COURSE: The patient is a 61-year-old female with chronic alcoholism presented to the emergency room with abdominal discomfort, nausea, and vomiting along with jaundice. Please refer to the history and physical dated 01/31/2017 for further details. The patient was admitted to the medical floor with a diagnosis of generalized weakness with nausea, v omiting, and abdominal discomfort. She was found to have significantly abnormal LFTs with total bili newby of 6 with AST of 367, ALT of 279, and alkaline phosphatase 328. The patient was seen by Gastro enterology, Dr. Gregorio. She also was found to have coagulopathy with PT of 20.8 and INR 1.7 with plate let count of 73 on admission. She also had several electrolyte imbalances, which were corrected. He r LFTs have somewhat improved. She was also found to have elevated ammonia at 137 on admission, whic h improved with lactulose and rifaximin during the hospital stay. She also had EGD on 02/02/2017 dom t showed 1 to 2+ distal esophageal varices not big enough to band. There were also changes consisten t with hypertensive portal gastropathy with diffuse hyperemic edematous mucosa throughout the stomach . She will be discharged home with Lasix and Aldactone. Repeat labs including magnesium next week i s recommended. Primary care physician advised to follow. FINAL DIAGNOSES: 1. New diagnosis of alcoholic cirrhosis. 2. Chronic alcoholism. The patient was counseled extensively to quit drinking. 3. Hepatic encephalopathy. 4. Small distal esophageal varices. 5. Mild ascites. 6. Elevated ferritin, probably an acute phase reactant. 7. Gastroesophageal reflux disease. 8. Hyperlipidemia. Statins have been discontinued due to abnormal liver function tests. 9. Multiple electrolyte imbalance including hypokalemia, hypomagnesemia, hypophosphatemia, and hypon atremia. 10. Generalized weakness with nausea, vomiting, and abdominal discomfort on admission. INPATIENT CELERY PACKER: 1. Gastroenterology, Dr. Gregorio. 2. General Surgery was also consulted in the emergency room for possible acute cholecystitis, which was ruled out. DIAGNOSTIC TESTS: Right upper quadrant ultrasound showed nodular appearance of the liver with some a scites. There was also some gallbladder wall thickening and sludge. Total time coordinating the discharge of this patient was 33 minutes.
== END 2017-02-05 14:02 | disposition home or self-care (01) | DRG 433 ==
LOC: ERS 12:13 → SUATTDRO 12:13 → T4-A 14:09
PROVIDERS: ADMIT Internal Medicine; ATTEND Internal Medicine
PROC: 0DB68ZX Excision of Stomach, Via Natural or Artificial Opening Endoscopic, Diagnostic (ICD-10-PCS; principal; 2017-02-02)
DX: K70.31 Alcoholic cirrhosis of liver with ascites (principal); I85.10 Secondary esophageal varices without bleeding; D68.9 Coagulation defect, unspecified; D69.6 Thrombocytopenia, unspecified; K72.90 Hepatic failure, unspecified without coma; E83.42 Hypomagnesemia; E83.39 Other disorders of phosphorus metabolism; E87.1 Hypo-osmolality and hyponatremia; K76.6 Portal hypertension; F10.20 Alcohol dependence, uncomplicated; K21.9 Gastro-esophageal reflux disease without esophagitis; E78.5 Hyperlipidemia, unspecified; E87.6 Hypokalemia; K31.89 Other diseases of stomach and duodenum; Z87.891 Personal history of nicotine dependence; Z88.2 Allergy status to sulfonamides; R13.10 Dysphagia, unspecified; J44.9 Chronic obstructive pulmonary disease, unspecified; K82.8 Other specified diseases of gallbladder
CPT/HCPCS: 36415; 76705; 80053; 80074; 81003; 81015; 82140; 82728; 83516; 83540; 83550; 83690; 83735; 84100; 84443; 85025; 85610; 85730; 86038; 88305; 88312; 96361; 96365; 96375; J2001; J2405; J2704; J3430; J3475; J3480; J7050

== ENCOUNTER 2017-02-18 10:03 | Emergency (ER) | payer SELFPAY ==
[2017-02-18 10:55] LABS: #Basophils 0.1 thou/uL (0.0-0.2); #Lymphocytes 0.9 thou/uL (1.20-3.40); #Monocytes 0.9 thou/uL (0.11-0.59); #Neutrophils 6.5 thou/uL (1.40-6.50); %Basophils 0.7 % (0.0-1.0); %Eosinophils 0.4 % (0.0-10.0); %Lymphocytes 10.6 % (21.0-51.0); %Monocytes 10.9 % (0.0-10.0); %Neutrophils 77.5 % (42.0-75.0); Hemoglobin 14.9 g/dL (12.0-16.0); Mean Corpuscular HGB CONC 33.8 g/dL (32.0-36.0); Mean Corpuscular Hemoglobin 38.3 pg (27.0-31.0); Mean Platelet Volume 8.4 fL (7.4-10.4); Platelet Count 105 thou/uL (130-400); RBC Distribution Width 14.4 % (11.5-14.5); Red Blood Cell (RBC) Count 3.88 mill/uL (4.20-5.40); White Blood Cell (WBC) Count 8.4 thou/uL (4.8-10.8)
[2017-02-18 11:25] LABS: ALT (SGPT) 67 U/L (8-55); AST (SGOT) 85 U/L (5-34); Albumin 2.9 g/dL (3.4-4.8); Alkaline Phosphatase 197 U/L (40-150); Anion Gap 14 mmol/L (10-20); BUN (Urea Nitrogen) 12 mg/dL (9.8-20.1); Bilirubin, Total 6.1 mg/dL (0.2-1.2); Calc. Creatinine Clearance 0 mL/min (70-130); Calcium 9.5 mg/dL (7.8-10.44); Carbon Dioxide 22 mmol/L (23-31); Chloride 99 mmol/L (98-107); Estimated GFR-MDRD 81; Globulin 4.8 g/dL (2.4-3.5); Glucose 107 mg/dL (80-115); Potassium 4.1 mmol/L (3.5-5.1); Protein, Total 7.7 g/dL (6.0-8.3); Sodium 131 mmol/L (136-145)
[2017-02-18 11:44] LABS: MDiff Complete? YES; Macrocytosis MODERATE=16-30 cells (100X) (0-5/hpf); PLT Morphology Comment Appears Decreased; Rouleaux Formation SLIGHT = 1-5 cells (100X) (None Seen)
[2017-02-18] MEDS ORDERED: Ondansetron HCl/PF 4 MG/2 ML Vial ONE (12:27)
[2017-02-18] MEDS ORDERED: Morphine 4 MG/ML VIAL ONE (12:27)
[2017-02-18 12:52] LABS: Bilirubin Small (Negative); Blood, Urine Negative (Negative); Clarity CLEAR (Clear); Glucose, Urine (Dipstick) Negative (Negative); Leukocyte Small (Negative); Nitrite Positive (Negative); Protein, Urine (Dipstick) Negative (Neg-Trace); Specific Gravity, Urine 1.033 (1.002-1.036)
[2017-02-18 12:54] LABS: Pathc Cast-AUWi Flag 0.54 (0-2.49); Squamous Epithelial 0-3 HPF (0-3); WBC/HPF 0-3 HPF (0-3)
[2017-02-18 13:04] LABS: Bacteria/HPF 1+ HPF (None Seen); Hyaline Casts/LPF 0-3 HYALINE CAST LPF (0-3 Hyaline); RBC/HPF None Seen HPF (0-3)
[2017-02-18 13:38] LABS: INR-International Normal Ratio 1.4; PTT 40.2 SEC (22.9-36.1); Prothrombin Time 17.8 SEC (12.0-14.7)
--- NOTE | 2017-02-18 14:59 | CT ---
CT ABDOMEN AND PELVIS WITH CONTRAST: History Abdominal pain. COMPARISON: None. FINDINGS: Large right layering pleural effusion. This is new from the comparison examination. Multiple calcif ied granulomas in the lung. The hepatic contour is nodular. There is moderate volume ascites, not great enough for paracentesis. Severe submucosal edema of the ascending colon and some submucosal edema of the transverse colon. The portal vein is patent. There is distention of the gallbladder. Celiac trunk and superior mesenteric arteries are patent. No intrahepatic or extrahepatic biliary di latation. The spleen and pancreas unremarkable. Mild wall thickening of the duodenum and jejunum. No evidence for bowel obstruction. The appendix is visualized and appears normal. No hydronephrosis. Mild atherosclerotic plaque of the aorta. There appears to be expansile lesion of the right ischium with internal calcifications. The medullar y cavity is expansile. IMPRESSION: 1. New large right layering pleural effusion. 2. New moderate volume intraperitoneal size. 3. Abnormal submucosal edema of the ascending colon and transverse colon, likely colitis versus curt estive changes. 4. No evidence for bowel obstruction. POS: HECTOR
[2017-02-18] MEDS ORDERED: Iopamidol 370 76% 50 ML VIAL FS ONE (17:31)
[2017-02-18] MEDS ORDERED: ISOVUE-370 76%-LOCM 1 ML ONE (17:31)
== END 2017-02-18 16:06 | disposition home or self-care (01) ==
LOC: ERS 10:03
DX: R10.84 Generalized abdominal pain (principal); K74.60 Unspecified cirrhosis of liver; E78.5 Hyperlipidemia, unspecified; Z87.891 Personal history of nicotine dependence; Z79.899 Other long term (current) drug therapy
CPT/HCPCS: 36415; 74177; 80053; 81003; 81015; 83605; 83690; 85025; 85610; 85730; 96372; 96374; 96375; J2270; J2405

== ENCOUNTER 2017-05-09 14:57 | Inpatient (IN) | payer SELFPAY ==
[2017-05-09 15:47] LABS: Mean Corpuscular HGB CONC 33.4 g/dL (32.0-36.0); Mean Corpuscular Hemoglobin 38.1 pg (27.0-31.0); Mean Platelet Volume 6.6 fL (7.4-10.4); Platelet Count 158 thou/uL (130-400); RBC Distribution Width 15.5 % (11.5-14.5)
[2017-05-09 15:53] LABS: INR-International Normal Ratio 1.8; PTT 41.2 SEC (22.9-36.1); Prothrombin Time 21.9 SEC (12.0-14.7)
[2017-05-09 16:10] LABS: ALT (SGPT) 38 U/L (8-55); AST (SGOT) 54 U/L (5-34); Albumin 2.3 g/dL (3.4-4.8); Alkaline Phosphatase 169 U/L (40-150); Anion Gap 10 mmol/L (10-20); BUN (Urea Nitrogen) 13 mg/dL (9.8-20.1); Bilirubin, Total 4.9 mg/dL (0.2-1.2); Calc. Creatinine Clearance 0 mL/min (70-130); Calcium 8.4 mg/dL (7.8-10.44); Carbon Dioxide 25 mmol/L (23-31); Chloride 95 mmol/L (98-107); Estimated GFR-MDRD 72; Glucose 108 mg/dL (80-115); Lipase 38 U/L (8-78); Potassium 3.3 mmol/L (3.5-5.1); Protein, Total 6.3 g/dL (6.0-8.3); Sodium 127 mmol/L (136-145)
[2017-05-09 16:26] LABS: Band 3 % (5-11); Lymphocytes 3 % (21-51); MDiff Complete? YES; Macrocytosis SLIGHT = 6-15 cells (100X) (0-5/hpf); Monocytes 4 % (0-10); Neutrophil 90 % (42-75); PLT Morphology Comment Appears Adequate
[2017-05-09] MEDS ORDERED: Ondansetron HCl/PF 4 MG/2 ML Vial IVP PRN (23:51)
[2017-05-09] MEDS ORDERED: Ondansetron ODT 4 MG TAB SL PRN (23:51)
[2017-05-10 00:19] VITALS: BMI 22.8
[2017-05-10] MEDS ORDERED: Lorazepam 1 MG TAB PO SCH (00:45)
[2017-05-10] MEDS ORDERED: Ondansetron HCl/PF 4 MG/2 ML Vial IVP PRN (08:30)
[2017-05-10] MEDS ORDERED: Ondansetron ODT 4 MG TAB PO PRN (08:30)
--- NOTE | 2017-05-10 08:57 | HP ---
PRIMARY CARE PHYSICIAN: Dr. Piña. CHIEF COMPLAINT: Cannot keep any food down. HISTORY OF PRESENT ILLNESS: Ms. Pichardo is a pleasant 61-year-old female that came to the emergency r oom, because of persistent nausea. Unfortunately, the patient was given Ativan about an hour before I came to see her, so most of the history is obtained actually from her sister who came to the [facility] during the encounter, but between the sister and the patient, Ms. Pichardo has been having this nause a for the last several weeks. They attributed to lactulose, which she has been taking for alcoholic cirrhosis. Her sister says that they were actually getting pretty used of it to the chronic nausea, but recently in the last couple of days to weeks, she stopped eating. She basically wants to lay isidra und most of the time. Her membership solicitor had decreased the lactulose dose to just once a day, ho ping that this would help, but she says that she has still been complaining of the nausea, unable to eat. She says she has only had about 500 calories in the last couple of days. She reports some lowe r abdominal pain as well as some fevers at night and her sister also says it seems like she seems mor e short of breath and that her abdomen is getting larger and she is just wondering what they can poss ibly do for her. Apparently, she had gone to [place] to be evaluated for transplant; however, the do ctors there said that she did not get her symptoms under control with regards to the nausea and poor oral intake that they could not evaluate her and she would need to come to the emergency room locally and this is another reason that she is here. REVIEW OF SYSTEMS: Essentially unobtainable as the patient is quite drowsy, only able to answer a w questions with single word answers at a time. PAST MEDICAL HISTORY: Significant for hyperlipidemia, gastroesophageal reflux disease, alcoholic cir rhosis, alcoholism; however, her sister states that the patient has stopped drinking. PAST SURGICAL HISTORY: She has had a colonoscopy that was negative and upper endoscopy in January [facility] showed some distal esophageal varices, which were too small to band and some hypertensive portal gastropathy. She has had a D&C and a left breast biopsy. ALLERGIES: To SULFA. FAMILY HISTORY: Significant for lung cancer in her father and diabetes in her mother. SOCIAL HISTORY: She is . She has no children. Her sister Neena Ruano is her medical power of personal injury attorney and helps her to make her decisions. Her code status, she said she would like to be a DO NOT RESUSCITATE. MEDICATIONS: These are taken from the records and include Aldactone 50 mg t.i.d., pantoprazole 40 mg daily, lactulose 10 grams daily, Lasix 40 mg daily, folic acid 1 mg daily. PHYSICAL EXAMINATION: GENERAL: She is alert and oriented, but she does fall asleep quickly. She is well-developed, well-n ourished. VITAL SIGNS: Blood pressure was 98/63, heart rate 85, respiratory rate 16, temperature is 98. HEENT: Pupils are equal, round, and reactive. Sclerae are anicteric. Throat: There is no erythema , no exudates. NECK: No adenopathy, no bruits. LUNGS: Clear to auscultation. There is no wheezing, no rales. CARDIOVASCULAR: She has a normal S1, S2. I did not appreciate an S3 or S4. No murmurs, clicks or r ubs. ABDOMEN: Slightly distended. There was no fluid wave, is actually tympanic to percussion. She had some mild lower abdominal tenderness. There is no rebound, no guarding. Positive for bowel sounds. EXTREMITIES: She has got trace ankle edema. NEUROLOGIC: The exam is grossly nonfocal. SIGNIFICANT LABORATORY DATA: White blood cell count is 11, hemoglobin 13, hematocrit is 38.8, platel et count is 158. INR is 1.8. Sodium 127, potassium 3.3, chloride is 95, BUN of 13, creatinine 0.81, glucose is 108, total bilirubin is 4.9, AST is 54, ALT is 38 and alkaline phosphatase is 169. ASSESSMENT AND PLAN: This is a 61-year-old female that presents with complaints of nausea, the etiol ogy of which is more or less vague or the characteristics are vague that is possibly related to lactu lose as she says that she basically cannot stand the taste of it and believes that it is likely the c ause of her symptoms; however, she is also having some lower abdominal pain and subjective fevers and her sister states that she wants to have "some fluid taken off". She will be placed in observation and we will see if we can place an observation in #1 that is for the nausea likely related to lactulo se. We can see if the pharmacy carries Kristalose, which is an alternative and it is marked as havin g less of a taste and hopefully she can tolerate this over the lactulose and we may also need to ivan t her symptoms symptomatically with medications such as Zofran or Phenergan. 1. With regards to the abdominal pain, this appears to be mild. She has no fever here. She does cano ve a mild leukocytosis and clinically she does not appear to have significant ascites on exam; perry simms, we will go ahead and get an abdominal ultrasound and if there is enough fluid to tap, we will see if interventional radiologist can do this under ultrasound guidance. 2. Shortness of breath. This is unclear. We will get an echocardiogram just to make sure that ther e is no heart failure or regional wall motion abnormalities there. 3. We will consult her membership solicitor since he sees her regular in the outpatient setting to see what additional recommendations he may have.
[2017-05-10] MEDS: Folic Acid 1 MG TAB PO SCH (09:10)
[2017-05-10] MEDS ORDERED: Sodium Bicarbonate 2.5 MEQ/5 ML VIAL ONE (11:03)
--- NOTE | 2017-05-10 11:53 | ULT ---
ULTRASOUND GUIDED PARACENTESIS: Date: 05/10/17 HISTORY: Abdominal pain. Cirrhosis. COMPARISON: None. FINDINGS: Technically successful ultrasound guided paracentesis. A total of 1,800 mL of yellow-colored ascites aspirated. No immediate or postprocedural complications. TECHNIQUE: Consent obtained to perform an ultrasound guided paracentesis. The patient's abdomen was evaluated. R ight lower quadrant was deemed appropriate. Skin was prepped and draped in the sterile fashion. 1% li docaine, buffered with sodium bicarbonate, was used for local anesthesia. Under ultrasound guidance, a 5 [place] 7.0 cm OOYYOeh catheter was advanced into the peritoneal space. Via vacuum bottles, a total o f 1,800 mL of yellow-colored ascites was aspirated. The patient tolerated the procedure well. No imme diate or postprocedural complications. IMPRESSION: Successful ultrasound guided paracentesis. POS: [facility]
[2017-05-10 12:37] LABS: BF Color Yellow; Body Fluid Source Ascites Body Fluid; Clarity Clear (Clear); RBC Background Count 0.008; WBC/NonHematic-Auto 474 /cumm
[2017-05-10 12:53] LABS: BF RBC Count - Manual 39 /cumm
[2017-05-10 12:57] LABS: BF Segmented Neutrophils 66 %; Cell Count Non Hematic 23 %; Lymphocytes 11 %
[2017-05-10] MEDS: Sodium Chloride 0.9% 1,000 ML IV SCH (13:49)
[2017-05-10] MEDS: Rifaximin 550 MG TAB PO SCH (20:14)
--- NOTE | 2017-05-10 22:46 | CON ---
DATE OF CONSULTATION: 05/10/2017 REASON FOR CONSULTATION: Nausea and vomiting. HISTORY OF PRESENT ILLNESS: Ms. Pichardo is a 61-year-old female with alcoholic cirrhosis, who was see n by Dr. Stephen Gregorio. She initially came to care with presentation in 01/2017. She was admitted to [facility] with upper abdominal pain, poor appetite and elevated LFTs. She was found to have cirrho sis and alcoholic hepatitis. There was a concern that she may have some subacute cholecystitis as we ll and with her initial workup, she had an EGD with severe portal gastropathy and grade II varices. There is no banding, and these have never bled. She has had imaging of the liver with no evidence of hepatoma. She had quite a bit of edema in the ascending colon, submucosal edema of the transverse c olon. She had no evidence of portal vein thrombosis in that study in February. Also, there has been some type of lesion in the right ischium with internal calcifications and possible carpal breakthroug h, that was in 02/2017. In the interim, she has been evaluated for hepatitis A, B, and C, which were negative. She had H. [facility] that was negative. She had workup for autoimmune hepatitis that was negative. She has stopped drinking and has been on multivitamin, Aldactone 50 mg t.i.d., lactulose once or twice daily, pantopr azole, Lasix 40 mg daily and folic acid. She has also been on multivitamin. Recently, she continued to have issues with fluid retention and signs of decompensated cirrhosis. She was sent to [facility] for transplant evaluation; however, with no finding, whatsoever, they could not refer her on for liver transplant evaluation. The patient's sister is very helpful with the history indicates that Dr. Stephen Maza, that she saw h ad recommended an EGD as she has been having complaints of vomiting frequently and after meals freque ntly for some time and also had recommended a paracentesis. She has not been back to her office at [facility], that was just 4 days ago that she has seen in [place], and looking into the chart, we did n ot receive that note yet. Her present complaints are that of nausea, vomiting, usually with morning sickness and also vomiting after eating. She really has not been able to tolerate much intake for the past 3 weeks. The family had also noted some low-grade temperatures at home. She apparently had a fall this past Saturday and also had some issues with confusion and dizziness. She does continue to drive. They had her stay wi th her mother at times. Her mother is in her upper 80s and is not able to care for her. Brother and sister here in the room and live in town. She has had some issues with edema in the legs, but more recently this has improved. REVIEW OF SYSTEMS: She denies any dysphagia, odynophagia, melena, hematochezia or hematemesis. She does have stool several times a day, but no overt diarrhea. She did have a paracentesis this morning , results of that are pending. She feels better with that fluid removed. She has some reflux and ta kes H2 charisse. She denies shortness of breath or chest pain. She states she is not drinking, whats oever. PAST MEDICAL HISTORY: 1. Decompensated cirrhosis from alcohol abuse. 2. Alcoholism. She has not drank since early January. 3. Hepatic encephalopathy. 4. Varices, nonbleeding. 5. Ascites. 6. Reflux. PAST SURGICAL HISTORY: 1. Colonoscopy, negative in the past. 2. Upper endoscopy showed esophageal varices too small a band, and hypertensive portal gastropathy. 3. Previous D and C. 4. Left breast biopsy. ALLERGIES: SULFA. FAMILY HISTORY: Lung cancer in father and diabetes in brother. SOCIAL HISTORY: She is a . She has no children. Her sister, Neena, is here with her and as t he medical power of document review attorney. She has expressed admitting physicians to DNR status. PRESENT MEDICATIONS: Folic acid; Lasix 40 daily; lactulose 10 daily; lorazepam, once last night; Zof ran p.r.n., Protonix and Aldactone 50 daily. PHYSICAL EXAMINATION: GENERAL: The patient is pretty sleepy, slow to respond, but is awake and oriented. She knows the da y. She recognizes her brother and sister. She is trying to eat a little bit. VITAL SIGNS: Temperature is 97.9, pulse is 90 and blood pressure 124/73. She is nonicteric. LUNGS: Clear. HEART: Regular, without clicks or murmurs. ABDOMEN: Soft and slightly protuberant with shifting dullness and fluid wave. There is no rebound. There is no guarding, no hernias. EXTREMITIES: No clubbing, cyanosis or edema. LABORATORY STUDIES: White count of 11,000 up from baseline of 8.4, hemoglobin is 13, platelet count is 158, 90% segs, no bands. INR was 1.8 yesterday. Sodium 127, potassium 3.3, BUN and creatinine ar e 13 and 0.81. Bilirubin is 4.8, AST and ALT are 54 and 38, alkaline phosphatase is 169, albumin is 2.3, protein 6.8, lipase is 38 and normal. TSH previously has been normal. Ammonia is 24. Urine: Positive nitrites, small bilirubin, small leukocyte esterase, 1+ bacteria. Ascitic fluid from 11 tod ay, white count 474 with 66% segs and 312 absolute neutrophil count. ASSESSMENT: 1. Cirrhosis, decompensated from alcohol. 2. Alcohol. She is not presently drinking. 3. Admission with spontaneous bacterial peritonitis. 4. Chronic issues with encephalopathy, seems she may be under medicated on lactulose, does make her nauseated. She does not like to take it, but she can afford Xifaxan. 5. Intermittent vomiting with previous esophagogastroduodenoscopy as noted above. 6. Previously noted expansile lesions of the right ischium, unclear etiology. This is going to be w orked up as an outpatient, but does not appear to have at this point. RECOMMENDATIONS: 1. Levaquin 500 mg daily IV. 2. Hold all sedation; it only worsens encephalopathy. 3. Zofran IV for nausea. 4. IV PPI. 5. Hold diuretics for now. 6. Low dose IV fluids in light of SBP. She is at risk for hepatorenal syndrome. 7. No NSAIDS. 8. We will defer workup of the ischial lesion to Internal Medicine. 9. If nausea and vomiting issues persists after paracentesis and treating for SBP, we would consider repeating her EGD.
[2017-05-11] MEDS: Sodium Chloride 0.9% 1,000 ML IV SCH ×2 (01:23→17:29)
[2017-05-11 05:23] LABS: #Eosinphils 0.2 thou/uL (0.0-0.7); #Monocytes 1.4 thou/uL (0.11-0.59); #Neutrophils 8.2 thou/uL (1.40-6.50); %Basophils 0.4 % (0.0-1.0); %Eosinophils 1.7 % (0.0-10.0); %Lymphocytes 9.5 % (21.0-51.0); %Monocytes 12.8 % (0.0-10.0); %Neutrophils 75.7 % (42.0-75.0); Hemoglobin 11.5 g/dL (12.0-16.0); Mean Corpuscular HGB CONC 33.2 g/dL (32.0-36.0); Mean Platelet Volume 6.7 fL (7.4-10.4); Platelet Count 130 thou/uL (130-400); RBC Distribution Width 15.4 % (11.5-14.5); Red Blood Cell (RBC) Count 3.02 mill/uL (4.20-5.40); White Blood Cell (WBC) Count 10.8 thou/uL (4.8-10.8)
[2017-05-11 05:46] LABS: Eosinophils 2 % (0-10); Hemoglobin 11.4 g/dL (12.0-16.0); Lymphocytes 8 % (21-51); MDiff Complete? YES; Mean Corpuscular HGB CONC 34.4 g/dL (32.0-36.0); Mean Corpuscular Hemoglobin 38.3 pg (27.0-31.0); Mean Platelet Volume 6.6 fL (7.4-10.4); Monocytes 11 % (0-10); Neutrophil 79 % (42-75); Platelet Count 125 thou/uL (130-400); RBC Distribution Width 15.6 % (11.5-14.5); Red Blood Cell (RBC) Count 2.98 mill/uL (4.20-5.40)
[2017-05-11 07:04] LABS: Chloride 97 mmol/L (98-107); Magnesium 1.1 mg/dL (1.6-2.6); Potassium 3.5 mmol/L (3.5-5.1); Sodium 127 mmol/L (136-145)
[2017-05-11 07:05] LABS: Calcium 7.4 mg/dL (7.8-10.44); Glucose 66 mg/dL (80-115)
[2017-05-11 07:07] LABS: Anion Gap 6 mmol/L (10-20); Carbon Dioxide 28 mmol/L (23-31)
[2017-05-11 07:09] LABS: Calc. Creatinine Clearance 77 mL/min (70-130); Estimated GFR-MDRD Greater than 90; Phosphorus 2.1 mg/dL (2.3-4.7)
[2017-05-11 07:10] LABS: BUN (Urea Nitrogen) 12 mg/dL (9.8-20.1)
[2017-05-11] MEDS ORDERED: Furosemide 40 MG TAB PO SCH (07:30)
[2017-05-11] MEDS ORDERED: Spironolactone 25 MG TAB PO SCH (09:00)
[2017-05-11] MEDS: Rifaximin 550 MG TAB PO SCH ×2 (09:35→20:14)
[2017-05-11] MEDS: Folic Acid 1 MG TAB PO SCH (09:35)
[2017-05-11] MEDS ORDERED: traMADol HCl 50 MG TAB PO PRN (10:12)
--- NOTE | 2017-05-11 10:42 | PDOC.PN ---
- Subjective Encounter Start Date: 05/11/17 Encounter Start Time: 10:41 Ms. Pichardo was seen today in follow-up. She continues to have some pain in the lower abdomen. She also notes the return of some nausea. - Objective Resuscitation Status: Resuscitation Status DNR:Do Not Resuscitate MAR Reviewed: Yes Vital Signs & Weight: Vital Signs (12 hours) Temp Pulse Resp BP Pulse Ox 05/11/17 07:26 97.2 F L 89 16 91/58 L 92 L Weight Admit Weight 121 lb 4.068 oz Weight 121 lb 4.068 oz I&O: 05/10/17 05/11/17 05/12/17 06:59 06:59 06:59 Intake Total 1675 Balance 1675 Result Diagrams: 05/11/17 05:00 05/11/17 06:43 Phys Exam - Physical Examination HEENT: PERRLA Respiratory: no wheezing, no rales, no rhonchi, clear to auscultation bilateral Cardiovascular: RRR, no significant murmur, no rub Gastrointestinal: soft, positive bowel sounds + lower abdominal tenderness no rebound or guarding, mildly distended Musculoskeletal: no edema Dx/Plan (1) Spontaneous bacterial peritonitis Code(s): K65.2 - SPONTANEOUS BACTERIAL PERITONITIS Status: Acute (2) Alcoholic cirrhosis of liver Code(s): K70.30 - ALCOHOLIC CIRRHOSIS OF LIVER WITHOUT ASCITES Status: Acute (3) Nausea Code(s): R11.0 - NAUSEA Status: Acute (4) GERD (gastroesophageal reflux disease) Code(s): K21.9 - GASTRO-ESOPHAGEAL REFLUX DISEASE WITHOUT ESOPHAGITIS Status: Acute - Plan * Spontaneous Bacterial Peritonitis- Continue Levaquin, and awaiting sensitivities * Nausea- ? etiology- possibly from Lactulose, or due to infection from SBP * Will monitor renal function has she is at risk for Hepatorenal syndrome.
[2017-05-11] MEDS ORDERED: Magnesium 2 GM/NS 0.9% 100 ML 2 GM in Premix Bag 1 BAG IVPB SCH ×10 (12:30→20:00)
[2017-05-11] MEDS ORDERED: Potassium Phosphate 15 MMOL in Sodium Chloride 0.9% 250 ML 250 ML IVPB SCH ×3 (12:30→16:00)
--- NOTE | 2017-05-11 13:19 | PRG ---
DATE OF SERVICE: 05/11/2017 SUBJECTIVE: Ms. Pichardo is not vomiting; however, she is not really eating very much. She has had no vomiting she states. PHYSICAL EXAMINATION: VITAL SIGNS: Temperature is 97, pulse 89, blood pressure 91/58. LUNGS: Clear. HEART: Regular rate and rhythm without clicks or murmurs. ABDOMEN: Protuberant. There is some ascites or shifting dullness. Nontender. LABORATORY DATA: White count is 7.0, hemoglobin 11.4, and platelet count 125. Today, her sodium is 127, potassium 3.5, BUN and creatinine 12 and 0.66, phosphorus is 2.1 and low, magnesium is 1.1 and l ow. Peritoneal fluid shows gram variable rods. Cultures pending. ASSESSMENT: 1. Cirrhosis, end-stage liver disease from alcohol abuse. 2. Spontaneous bacterial peritonitis, started on antibiotics yesterday. 3. Chronic nausea and vomiting. 4. Malnutrition. 5. The patient has seen in liver transplant for evaluation and recommended EGD and paracentesis. Lexie carlee had an EGD in January for her nausea and vomiting which was negative. PLAN: 1. Treat SBP aggressively. 2. We will start some albumin IV as she has positive peritoneal cultures. We will replace her magne sium and phosphorus. This has already been begun by primary service and we will recheck them tomorro w. 3. With regard to her bone lesions, it is unclear to me if this is a malignancy or not, would defer further evaluation to primary service.
[2017-05-11] MEDS ORDERED: Albumin 25% 25 GM/100 ML BOT IVPB SCH ×2 (14:00→18:00)
[2017-05-11] MEDS: Albumin 25% 25 GM/100 ML BOT IVPB SCH ×2 (15:53→20:25)
[2017-05-12] MEDS: Albumin 25% 25 GM/100 ML BOT IVPB SCH ×3 (05:30→20:09)
[2017-05-12 05:47] LABS: Anion Gap 9 mmol/L (10-20); BUN (Urea Nitrogen) 8 mg/dL (9.8-20.1); Calc. Creatinine Clearance 90 mL/min (70-130); Calcium 7.2 mg/dL (7.8-10.44); Carbon Dioxide 22 mmol/L (23-31); Chloride 99 mmol/L (98-107); Estimated GFR-MDRD Greater than 90; Glucose 88 mg/dL (80-115); Magnesium 2.2 mg/dL (1.6-2.6); Phosphorus 1.5 mg/dL (2.3-4.7); Potassium 3.5 mmol/L (3.5-5.1); Sodium 126 mmol/L (136-145)
[2017-05-12] MEDS ORDERED: Potassium Phosphate 9 MMOL in Sodium Chloride 0.9% 100 ML IVPB SCH (06:15)
[2017-05-12] MEDS: Sodium Chloride 0.9% 1,000 ML IV SCH (08:35)
[2017-05-12] MEDS: Rifaximin 550 MG TAB PO SCH ×2 (08:37→20:09)
[2017-05-12] MEDS: Folic Acid 1 MG TAB PO SCH (08:37)
[2017-05-12] MEDS: Multivit, Therapeutic 1 TAB PO SCH (08:37)
--- NOTE | 2017-05-12 13:33 | PDOC.PN ---
- Subjective Encounter Start Date: 05/12/17 Encounter Start Time: 12:00 Subjective: overall is feeling better -: has gen weakness, loss of appetite - Objective Resuscitation Status: Resuscitation Status DNR:Do Not Resuscitate MAR Reviewed: Yes Vital Signs & Weight: Vital Signs (12 hours) Temp Pulse Resp BP Pulse Ox 05/12/17 08:51 98.1 F 84 18 112/59 L 92 L 05/12/17 08:00 98.1 F 83 18 108/68 95 Weight Admit Weight 121 lb 4.068 oz Weight 121 lb 4.068 oz I&O: 05/11/17 05/12/17 05/13/17 06:59 06:59 06:59 Intake Total 1675 950 Balance 1675 950 Result Diagrams: 05/11/17 05:00 05/12/17 04:19 Phys Exam - Physical Examination HEENT: PERRLA, moist MMs Neck: no JVD, supple Respiratory: no wheezing, no rales Cardiovascular: RRR, no significant murmur Gastrointestinal: soft, non-tender, positive bowel sounds ascites++, no rigidity or guarding Musculoskeletal: pulses present, edema present Neurological: non-focal, moves all 4 limbs Dx/Plan (1) Spontaneous bacterial peritonitis Code(s): K65.2 - SPONTANEOUS BACTERIAL PERITONITIS Status: Acute (2) Alcoholic cirrhosis of liver Code(s): K70.30 - ALCOHOLIC CIRRHOSIS OF LIVER WITHOUT ASCITES Status: Chronic Qualifiers: Ascites presence: with ascites Qualified Code(s): K70.31 - Alcoholic cirrhosis of liver with ascites (3) Hyponatremia Code(s): E87.1 - HYPO-OSMOLALITY AND HYPONATREMIA Status: Acute (4) Moderate protein-calorie malnutrition Code(s): E44.0 - MODERATE PROTEIN-CALORIE MALNUTRITION Status: Chronic - Plan had paracentesis with removal of 1800ml yellow fluid on 05/10/17 -: sodium is 126 -: is on levaquin and xifaxan -: alb infusions q8h, may dc iv fluids -: oob to chair and amb as tolerated * . Review of Systems - Medications/Allergies Allergies/Adverse Reactions: Allergies Allergy/AdvReac Type Severity Reaction Status Date / Time Sulfa (Sulfonamide Allergy Verified 01/31/17 17:24 Antibiotics) Medications: Current Medications Albumin Human (Albumin 25%) 25 gm IVPB Q8HR [facility] Stop: 05/13/17 14:01 Last Admin: 05/12/17 05:30 Dose: 25 gm Folic Acid (Folvite) 1 mg PO DAILY [facility] Last Admin: 05/12/17 08:37 Dose: 1 mg Levofloxacin 500 mg/ Device 100 mls @ 100 mls/hr IVPB Q24HR [facility] Last Admin: 05/11/17 13:32 Dose: 100 mls Sodium Chloride (Normal Saline 0.9%) 1,000 mls @ 70 mls/hr IV .[id number] [facility] Last Admin: 05/12/17 08:35 Dose: 1,000 mls Lactulose (Lactulose) 10 gm PO DAILY [facility] Last Admin: 05/12/17 08:36 Dose: 10 gm Multivitamins (Theragran) 1 tab PO DAILY [facility] Last Admin: 05/12/17 08:37 Dose: 1 tab Ondansetron HCl (Zofran Odt) 4 mg PO Q6H PRN PRN Reason: Nausea/Vomiting Ondansetron HCl (Zofran) 4 mg IVP Q6H PRN PRN Reason: Nausea/Vomiting Pantoprazole Sodium (Protonix) 40 mg PO DAILY [facility] Last Admin: 05/12/17 08:37 Dose: 40 mg Rifaximin (Xifaxan) 550 mg PO BID [facility] Last Admin: 05/12/17 08:37 Dose: 550 mg Thiamine HCl (Thiamine) 100 mg PO DAILY [facility] Last Admin: 05/12/17 08:37 Dose: 100 mg Tramadol HCl (Ultram) 50 mg PO Q6H PRN PRN Reason: Pain Last Admin: 05/11/17 11:59 Dose: 50 mg
[2017-05-12] MEDS ORDERED: Potassium Phosphate 12 MMOL in Sodium Chloride 0.9% 100 ML IVPB SCH (16:00)
--- NOTE | 2017-05-12 19:12 | PRG ---
DATE OF SERVICE: 05/12/2017 SUBJECTIVE: Ms. Pichardo actually is much more alert today. She does have some ascites. She has not eaten very well. OBJECTIVE: VITAL SIGNS: Temperature is 98, pulse is 84 and blood pressure is 112/59. NECK: She has no icterus. LUNGS: Clear. HEART: Regular rate and rhythm without clicks or murmurs. ABDOMEN: Soft, slight protuberant, nontender. LABORATORY DATA: Today sodium 126, potassium 3.5, BUN and creatinine are 8 and 0.56 previous one 13 and 0.8, phosphorus 1.5, magnesium 2.2, calcium 7.2. ASSESSMENT: 1. Spontaneous bacterial peritonitis, gram variable rods growing from peritoneal fluid. 2. Anorexia and intermittent vomiting, possibly related to ascites. She had normal esophagogastrodu odenoscopy in January, on PPI. 3. Alcoholic cirrhosis. No longer drinking. [facility] [place], but they would not refer for transplant and she is unfunded at this time. PLAN: 1. Continue IV antibiotics. 2. Continue IV albumin. Consider paracentesis in a couple days, transitioned to oral antibiotics. She will probably need to be on prophylactic antibiotics for SBP. We will replace phosphorus if naus ea and vomiting is not improved with treatment of SBP, may need to reconsider repeat EGD.
[2017-05-13] MEDS: Albumin 25% 25 GM/100 ML BOT IVPB SCH ×2 (05:10→15:59)
[2017-05-13] MEDS: Folic Acid 1 MG TAB PO SCH (08:15)
[2017-05-13] MEDS: Multivit, Therapeutic 1 TAB PO SCH (08:16)
[2017-05-13] MEDS: Rifaximin 550 MG TAB PO SCH ×2 (08:16→20:34)
--- NOTE | 2017-05-13 13:10 | PDOC.PN ---
- Subjective Encounter Start Date: 05/13/17 Encounter Start Time: 07:30 Subjective: c/o mild sob -: no abd pain - Objective Resuscitation Status: Resuscitation Status DNR:Do Not Resuscitate MAR Reviewed: Yes Vital Signs & Weight: Vital Signs (12 hours) Temp Pulse Resp BP BP Pulse Ox Pulse Ox 05/13/17 09:26 114/69 98 05/13/17 08:00 98.0 F 57 L 18 98 05/13/17 07:35 98.0 F 57 L 18 96/59 L 98 Pulse Ox 05/13/17 09:26 93 L 05/13/17 08:00 05/13/17 07:35 Weight Admit Weight 121 lb 4.068 oz Weight 121 lb 4.068 oz I&O: 05/12/17 05/13/17 05/14/17 06:59 06:59 06:59 Intake Total 950 525 Balance 950 525 Result Diagrams: 05/11/17 05:00 05/12/17 04:19 Phys Exam - Physical Examination HEENT: PERRLA, moist MMs Neck: no JVD, supple Respiratory: no wheezing, no rales Cardiovascular: RRR, no significant murmur Gastrointestinal: soft, non-tender, positive bowel sounds ascites+ Musculoskeletal: no edema, pulses present Neurological: non-focal, moves all 4 limbs Dx/Plan (1) Spontaneous bacterial peritonitis Code(s): K65.2 - SPONTANEOUS BACTERIAL PERITONITIS Status: Acute (2) Alcoholic cirrhosis of liver Code(s): K70.30 - ALCOHOLIC CIRRHOSIS OF LIVER WITHOUT ASCITES Status: Chronic Qualifiers: Ascites presence: with ascites Qualified Code(s): K70.31 - Alcoholic cirrhosis of liver with ascites (3) Hyponatremia Code(s): E87.1 - HYPO-OSMOLALITY AND HYPONATREMIA Status: Acute (4) Moderate protein-calorie malnutrition Code(s): E44.0 - MODERATE PROTEIN-CALORIE MALNUTRITION Status: Chronic - Plan labs in am -: alb infusion -: klebsiella sbp sensitive to all antibiotics -: ?paracentesis in am if stable -: dc iv fluids, ?dc plan in am after paracentesis * . Review of Systems - Medications/Allergies Allergies/Adverse Reactions: Allergies Allergy/AdvReac Type Severity Reaction Status Date / Time Sulfa (Sulfonamide Allergy Verified 01/31/17 17:24 Antibiotics) Medications: Current Medications Albumin Human (Albumin 25%) 25 gm IVPB Q8HR [facility] Stop: 05/13/17 14:01 Last Admin: 05/13/17 05:10 Dose: 25 gm Folic Acid (Folvite) 1 mg PO DAILY [facility] Last Admin: 05/13/17 08:15 Dose: 1 mg Levofloxacin 500 mg/ Device 100 mls @ 100 mls/hr IVPB Q24HR [facility] Last Admin: 05/12/17 14:14 Dose: 100 mls Lactulose (Lactulose) 10 gm PO DAILY [facility] Last Admin: 05/13/17 08:16 Dose: 10 gm Multivitamins (Theragran) 1 tab PO DAILY [facility] Last Admin: 05/13/17 08:16 Dose: 1 tab Ondansetron HCl (Zofran Odt) 4 mg PO Q6H PRN PRN Reason: Nausea/Vomiting Ondansetron HCl (Zofran) 4 mg IVP Q6H PRN PRN Reason: Nausea/Vomiting Pantoprazole Sodium (Protonix) 40 mg PO DAILY [facility] Last Admin: 05/13/17 08:15 Dose: 40 mg Rifaximin (Xifaxan) 550 mg PO BID [facility] Last Admin: 05/13/17 08:16 Dose: 550 mg Thiamine HCl (Thiamine) 100 mg PO DAILY [facility] Last Admin: 05/13/17 08:15 Dose: 100 mg Tramadol HCl (Ultram) 50 mg PO Q6H PRN PRN Reason: Pain Last Admin: 05/11/17 11:59 Dose: 50 mg
--- NOTE | 2017-05-13 16:21 | PRG ---
DATE OF SERVICE: 05/13/2017 SUBJECTIVE: Ms. Pichardo is feeling a bit better today with regards to nausea. She has eaten half a s andwich, some oatmeal, most of sneakers bar and is not feeling nauseated, generalized abdominal disco mfort and distention persists. She feels that she is more distended over the past few days since her paracentesis. She has been hemodynamically stable. OBJECTIVE: VITAL SIGNS: Temperature 98.0, pulse 57, blood pressure 114/69, 98% oxygen saturation on 2 liters na andressa cannula. GENERAL: Chronically ill, no acute distress. HEART: Regular rate and rhythm. LUNGS: Clear to auscultation bilaterally. ABDOMEN: Distended, bowel sounds present, soft, nontender to palpation. EXTREMITIES: 1+ pretibial edema. LABORATORY STUDIES: WBC 11.0, hemoglobin 11.4, platelets 125. INR 1.8. Sodium 126, potassium 3.5, BUN 8, creatinine 0.56, total bilirubin 4.9, alkaline phosphatase 169, AST 54, ALT 38, albumin 2.3, p hosphorus 1.5, magnesium 2.2. ASSESSMENT AND PLAN: 1. Spontaneous bacterial peritonitis. This appears to be a Klebsiella, which is pansensitive. She is receiving appropriate antibiotic therapy with IV levofloxacin. I think tomorrow this could be tra nsitioned to oral. We would complete a 1 week course of antibiotics and then we will put her on anti biotic prophylaxis thereafter for secondary prophylaxis of recurrent episodes of spontaneous bacteria l peritonitis. 2. Ascites. This has continued to be an issue despite outpatient diuretics. We will need to be car eful increasing the diuretics depending on renal function after she has recovered from this episode o f spontaneous bacterial peritonitis. On clinic follow up, we will consider increasing her diuretics. Upon hospital discharge, we would put her back on Lasix 40 mg daily and spironolactone 150 mg daily . I also think the patient would likely benefit from repeat therapeutic paracentesis tomorrow nata do 3. Alcoholic cirrhosis in the bigger picture, her prognosis is poor. She has not really had any cli nical improvement despite abstinence from alcohol over the past 4 months. She has been evaluated at [facility], but due to being unfunded, is not a candidate for further liver transplant evaluat ion.
[2017-05-13 21:43] VITALS: BP 110/66; TEMP 98.5
[2017-05-14 05:37] LABS: INR-International Normal Ratio 2.6; PTT 54.1 SEC (22.9-36.1); Prothrombin Time 28.9 SEC (12.0-14.7)
[2017-05-14 05:58] LABS: ALT (SGPT) 15 U/L (8-55); AST (SGOT) 31 U/L (5-34); Albumin 3.5 g/dL (3.4-4.8); Alkaline Phosphatase 109 U/L (40-150); Anion Gap 11 mmol/L (10-20); BUN (Urea Nitrogen) 7 mg/dL (9.8-20.1); Bilirubin, Total 5.2 mg/dL (0.2-1.2); Calc. Creatinine Clearance 97 mL/min (70-130); Calcium 8.1 mg/dL (7.8-10.44); Carbon Dioxide 19 mmol/L (23-31); Chloride 102 mmol/L (98-107); Estimated GFR-MDRD Greater than 90; Globulin 1.9 g/dL (2.4-3.5); Glucose 66 mg/dL (80-115); Potassium 3.9 mmol/L (3.5-5.1); Protein, Total 5.4 g/dL (6.0-8.3); Sodium 128 mmol/L (136-145)
[2017-05-14 06:37] LABS: Band 11 % (5-11); Eosinophils 3 % (0-10); Hemoglobin 10.1 g/dL (12.0-16.0); Lymphocytes 11 % (21-51); MDiff Complete? YES; Mean Corpuscular HGB CONC 33.1 g/dL (32.0-36.0); Mean Corpuscular Hemoglobin 38.1 pg (27.0-31.0); Mean Platelet Volume 7.1 fL (7.4-10.4); Monocytes 10 % (0-10); Neutrophil 65 % (42-75); PLT Morphology Comment Appears Decreased; Platelet Count 89 thou/uL (130-400); RBC Distribution Width 15.4 % (11.5-14.5); Red Blood Cell (RBC) Count 2.65 mill/uL (4.20-5.40); White Blood Cell (WBC) Count 10.3 thou/uL (4.8-10.8)
[2017-05-14] MEDS: Folic Acid 1 MG TAB PO SCH (09:02)
[2017-05-14] MEDS: Multivit, Therapeutic 1 TAB PO SCH (09:02)
[2017-05-14] MEDS: Rifaximin 550 MG TAB PO SCH (09:02)
--- NOTE | 2017-05-14 12:21 | PDOC.PN ---
- Subjective Encounter Start Date: 05/14/17 Encounter Start Time: 07:15 Subjective: feels better -: is amb in room - Objective Resuscitation Status: Resuscitation Status DNR:Do Not Resuscitate MAR Reviewed: Yes Vital Signs & Weight: Vital Signs (12 hours) Temp Pulse Resp Pulse Ox 05/14/17 08:05 98.5 F 90 16 95 Weight Admit Weight 121 lb 4.068 oz Weight 121 lb 4.068 oz I&O: 05/13/17 05/14/17 05/15/17 06:59 06:59 06:59 Intake Total 525 700 240 Balance 525 700 240 Result Diagrams: 05/14/17 04:13 05/14/17 04:13 Phys Exam - Physical Examination HEENT: PERRLA, moist MMs icterus Neck: no JVD, supple Respiratory: no wheezing, no rales Cardiovascular: RRR, no significant murmur Gastrointestinal: soft, non-tender, positive bowel sounds Musculoskeletal: no edema, pulses present Neurological: non-focal, moves all 4 limbs Psychiatric: normal affect, A&O x 3 Dx/Plan (1) Spontaneous bacterial peritonitis Code(s): K65.2 - SPONTANEOUS BACTERIAL PERITONITIS Status: Acute (2) Alcoholic cirrhosis of liver Code(s): K70.30 - ALCOHOLIC CIRRHOSIS OF LIVER WITHOUT ASCITES Status: Chronic Qualifiers: Ascites presence: with ascites Qualified Code(s): K70.31 - Alcoholic cirrhosis of liver with ascites (3) Hyponatremia Code(s): E87.1 - HYPO-OSMOLALITY AND HYPONATREMIA Status: Acute (4) Moderate protein-calorie malnutrition Code(s): E44.0 - MODERATE PROTEIN-CALORIE MALNUTRITION Status: Chronic - Plan hemostable -: paracentesis cant be done due to high inr -: dc pt home -: to start lasix, spironolactone and lactulose (last bm was 4 days back) * .
--- NOTE | 2017-05-15 02:13 | DIS ---
DATE OF ADMISSION: 05/09/2017 DATE OF DISCHARGE: 05/14/2017 DISCHARGE DISPOSITION: To home. PRIMARY DISCHARGE DIAGNOSES: Spontaneous bacterial peritonitis, chronic alcoholic cirrhosis with end-stage liver disease, moderate protein-calorie malnutrition, and hyponatremia. PROCEDURES DONE DURING HOSPITALIZATION: Patient has had paracentesis done on with removal of 1800 mL of yellow-colored ascitic fluid. Echo with 2D Doppler done showed an EF of 55%-60%. There is impaired relaxation compatible with diastolic dysfunction. Ascitic fluid culture grew Klebsiella oxytoca sensitive to all antibiotics. H and H 10 and 30, platelet count 89. Sodium 128 on the day of discharge with serum bicarbonate of 19, albumin is 2.3, total bilirubin 5.2. Ascitic fluid showed 474 WBCs with 39 RBCs, 66% neutrophils and there were no malignant cells seen on the fluid histopathology. INPATIENT CONSULTS: Dr. Carbone for Gastroenterology. DISCHARGE MEDICATIONS: Lasix 40 mg p.o. daily, levofloxacin 500 mg p.o. daily for another 6 days, Protonix 40 mg p.o. daily, spironolactone 50 mg p.o. twice daily, multivitamin 1 tab once daily, lactulose 20 g p.o. twice daily, Lasix 40 mg daily, folic acid 1 mg daily. ALLERGIES: SULFA. DISCHARGE PLAN: Patient to follow up with Dr. Carbone/Dr. Jg Mitchell for Gastroenterology as advised and primary care physician in 1 week. BRIEF COURSE DURING HOSPITALIZATION: Patient initially came to ER with complaints of persistent nausea and vomiting on the . The patient has known history of end-stage liver disease with alcoholic cirrhosis. She had ascites as well and had subjective fever. In view of this, patient has had paracentesis done with removal of 1800 mL of yellow fluid. Her ascitic fluid cultures grew Klebsiella oxytoca. She was on ceftriaxone all through her stay and has been switched over to Levaquin based on sensitivity. She has had consultation with Dr. Carbone for Gastroenterology. The patient initially was encephalopathic and 36 hours into hospitalization, patient's cognitive status is at her baseline. She is ambulating and eating better. She needs followup with primary care physician in 1 week. The patient has been referred for transplant list via grid casting machine operator helper's office, but in view of being uninsured , she has not had any further workup towards that. The patient likely will need another paracentesis if her INR is stable. Currently, on the day of discharge it is 2.6 and could not have a repeat paracentesis. She was optimized on her medications including Lasix, spironolactone. Please see a face to face documentation on [facility] for the day of discharge. [place]
== END 2017-05-14 12:36 | disposition home or self-care (01) | DRG 372 ==
LOC: ERS 14:57 → OBSVTOIN 18:05 → T4-B 18:05
PROVIDERS: ADMIT Internal Medicine; ATTEND Internal Medicine
PROC: 0W9G3ZZ Drainage of Peritoneal Cavity, Percutaneous Approach (ICD-10-PCS; principal; 2017-05-10)
DX: K65.2 Spontaneous bacterial peritonitis (principal); I85.10 Secondary esophageal varices without bleeding; K76.6 Portal hypertension; E44.0 Moderate protein-calorie malnutrition; E87.1 Hypo-osmolality and hyponatremia; K70.40 Alcoholic hepatic failure without coma; K70.31 Alcoholic cirrhosis of liver with ascites; Z68.22 Body mass index [BMI] 22.0-22.9, adult; K21.9 Gastro-esophageal reflux disease without esophagitis; K31.89 Other diseases of stomach and duodenum; Z66 Do not resuscitate; E78.5 Hyperlipidemia, unspecified; F10.10 Alcohol abuse, uncomplicated
CPT/HCPCS: 36415; 49083; 80048; 80053; 82140; 83036; 83690; 83735; 84100; 85025; 85060; 85610; 85730; 87070; 87077; 87186; 87205; 89051; 93306; 99285; G8978-GP-CL; G8979-GP-CJ; G8987-GO-CI; G8988-GO-CI; G8989-GO-CI; J1956; J2405; J3475; J7050; P9047; Q0162

== ENCOUNTER 2017-06-21 14:21 | Inpatient (IN) | payer SELFPAY ==
[2017-06-21] MEDS ORDERED: Promethazine HCl 25 MG/ML VIAL ONE (15:06)
[2017-06-21 15:10] LABS: #Lymphocytes 0.8 thou/uL (1.20-3.40); #Monocytes 0.9 thou/uL (0.11-0.59); #Neutrophils 5.9 thou/uL (1.40-6.50); %Basophils 0.3 % (0.0-1.0); %Eosinophils 0.4 % (0.0-10.0); %Lymphocytes 10.2 % (21.0-51.0); %Monocytes 11.7 % (0.0-10.0); %Neutrophils 77.3 % (42.0-75.0); Hemoglobin 8.3 g/dL (12.0-16.0); Mean Corpuscular Hemoglobin 37.7 pg (27.0-31.0); Platelet Count 108 thou/uL (130-400); RBC Distribution Width 13.4 % (11.5-14.5); Red Blood Cell (RBC) Count 2.19 mill/uL (4.20-5.40); White Blood Cell (WBC) Count 7.6 thou/uL (4.8-10.8)
[2017-06-21 15:14] LABS: INR-International Normal Ratio 1.8; PTT 28.4 SEC (22.9-36.1); Prothrombin Time 21.1 SEC (12.0-14.7)
--- NOTE | 2017-06-21 15:14 | RAD ---
SUPINE PORTABLE CHEST ONE VIEW: History: 62-year-old female with history of dizziness and vomiting. FINDINGS: Monitor leads overlie the chest. Heart size within normal limits. The lungs are clear. IMPRESSION: No acute intrathoracic disease. Atherosclerosis of the aorta. POS: OFF
[2017-06-21] MEDS ORDERED: Morphine 4 MG/ML VIAL ONE (15:24)
[2017-06-21 15:30] LABS: ALT (SGPT) 47 U/L (8-55); AST (SGOT) 61 U/L (5-34); Albumin 2.3 g/dL (3.4-4.8); Alkaline Phosphatase 93 U/L (40-150); Anion Gap 14 mmol/L (10-20); BUN (Urea Nitrogen) 47 mg/dL (9.8-20.1); Bilirubin, Total 3.1 mg/dL (0.2-1.2); CK (CPK) 51 U/L (29-168); Calc. Creatinine Clearance 0 mL/min (70-130); Calcium 8.2 mg/dL (7.8-10.44); Carbon Dioxide 22 mmol/L (23-31); Chloride 96 mmol/L (98-107); Estimated GFR-MDRD 54; Globulin 2.6 g/dL (2.4-3.5); Glucose 118 mg/dL (80-115); Lipase 97 U/L (8-78); Potassium 6.2 mmol/L (3.5-5.1); Protein, Total 4.9 g/dL (6.0-8.3); Sodium 126 mmol/L (136-145)
[2017-06-21 15:34] LABS: CKMB 1.4 ng/mL (0-6.6); Troponin I 0.032 ng/mL (< 0.028)
[2017-06-21] MEDS ORDERED: MEROPENEM 1 GM/50 ML 1 GM in Premix Bag 1 BAG IVPB SCH (16:15)
[2017-06-21] MEDS ORDERED: Pantoprazole 40 MG VIAL ONE (16:50)
[2017-06-21] MEDS ORDERED: Calcium Gluc 4.6 MEQ/10 ML (100 MG/ML) ONE (17:20)
[2017-06-21 18:56] LABS: Troponin I 0.088 ng/mL (< 0.028)
[2017-06-21] MEDS ORDERED: Octreotide Acetate 1,250 MCG in Sodium Chloride 0.9% 250 ML 250 ML IVPB SCH (19:00)
[2017-06-21] MEDS ORDERED: Octreotide Acetate 50 MCG/ML AMP SLOW IVP SCH (19:00)
[2017-06-21] MEDS ORDERED: Albumin 25% 25 GM/100 ML BOT IVPB SCH (19:03)
[2017-06-21 19:11] LABS: Lactic Acid 4.3 mmol/L (0.5-2.2)
--- NOTE | 2017-06-21 19:33 | CON ---
DATE OF CONSULTATION: 06/21/2017 GASTROENTEROLOGY CONSULTATION NOTE CHIEF COMPLAINT: Abdominal pain. HISTORY OF PRESENT ILLNESS: Ms. Pichardo is a 61-year-old woman who came to the emergency room today w ith weakness and abdominal pain. She is encephalopathic currently and gives only minimal history. S he has had abdominal pain for apparently a few days. It hurts more when she moves around. She has b een followed by Dr. Gregorio for alcoholic cirrhosis. She was treated for spontaneous bacterial peritoni tis and is supposed to be on ciprofloxacin as prophylaxis. However, it is unclear if she has actuall y been taking this recently. Her sister reports that she saw some black vomit in a trash can at home . The patient reports no known GI bleeding. She has had some loose stools on lactulose, but no marie l movement today. She has had progressive abdominal distention lately. Her weight in the office on 05/21/2017 was 119 pounds. We do not have a current weight. PAST MEDICAL HISTORY: Alcoholic cirrhosis, small esophageal varices by EGD in 01/2017, history of he patic encephalopathy and history of spontaneous bacterial peritonitis. Her last drink of alcohol was 01/2017. PAST SURGICAL HISTORY: EGD. FAMILY HISTORY: Negative for GI malignancy or liver disease. SOCIAL HISTORY: She quit drinking in 01/2018. She is a former smoker. No drugs. ALLERGIES: SULFA. MEDICATIONS: As an outpatient, spironolactone 50 mg 3 times daily, furosemide 40 mg daily, ciproflox acin 500 mg once daily as SBP prophylaxis, lactulose 20 grams 3 times a day. She has been on pantopr azole and Motrin at some point as well. REVIEW OF SYSTEMS: Negative x10 systems reviewed except as stated in the history of present illness; however, this is somewhat limited back by her encephalopathy. PHYSICAL EXAMINATION: GENERAL: She is in no acute distress. She is oriented to her name and place, but not the year. She answers some questions inappropriately such as one which her last bowel movement, answer was 5 years ago. NEUROLOGIC: Reveals asterixis. HEENT: Eyes have has scleral icterus. Her oropharynx has dry mucous membranes, but otherwise clear. NECK: There is no cervical or supraclavicular lymphadenopathy. LUNGS: Clear to auscultation bilaterally. HEART: Regular rate and rhythm. ABDOMEN: Distended and mildly tender diffusely without guarding. Bowel sounds are present. EXTREMITIES: No lower extremity edema. LABORATORY DATA: Sodium 126, potassium 6.2, creatinine 1.04, bilirubin 3.1, AST 61, ALT 47, alkaline phosphatase 93, albumin 2.3. Her INR is 1.8. IMPRESSION: 1. Alcoholic cirrhosis. She reports her last drink of alcohol was 01/2017. She is decompensated wi th a low albumin, high bilirubin and elevated INR. 2. Ascites with abdominal tenderness suggestive of spontaneous bacterial peritonitis, recurrent. He r white blood cell count is normal. She will require paracentesis. She has been on ciprofloxacin pr escribed at least as an outpatient. I am uncertain if she has actually been taking it. This is simp ly because she is unable to give a clear history on that. 3. History of small esophageal varices. She does have anemia compared to baseline with a hemoglobin of 8.3. Her hemoglobin was 10.1 back in 05/2017. She did vomit some black material this morning; h owever, rectal exam now currently reveals no stool in the rectal vault. There is no evidence of ongo ing acute bleeding. 4. Hepatic encephalopathy. She will receive lactulose orally now; however, she does not tolerate th is well, then lactulose enema can be given. 5. Hyperkalemia, likely secondary to Spiriva and spironolactone. RECOMMENDATIONS: 1. Start ceftriaxone 2 grams q.24 h. 2. Bedside paracentesis will be performed for diagnostic purposes. 3. SBP is suspected. She will receive albumin and her diuretics will be held for now. We will need to monitor her renal function closely. 4. Lactulose. 5. There are any further signs of bleeding, then she will be started on a octreotide drip. Again, t here is no stool in the rectal vault now, so will hold off the octreotide.
--- NOTE | 2017-06-21 20:08 | OP ---
DATE OF PROCEDURE: 06/21/2017 PROCEDURE: Diagnostic paracentesis. INDICATION: Abdominal pain and ascites. PROCEDURE IN DETAIL: Informed consent was obtained. Her abdomen was sterilized with chlorhexidine i n the right lower quadrant. A 1.5-inch 22-gauge needle was inserted, and 30 mL of clear yellow fluid were aspirated. This was sent for fluid studies including a cell count with differential and cultur e with Gram-stain. There were no immediate complications. The patient tolerated the procedure well. PLAN: 1. Fluid will be sent for fluid studies. 2. She will be given albumin 75 grams now and then repeat the albumin 50 grams on day #3 if spontane ous bacterial peritonitis is confirmed. She is being started on ceftriaxone. She is being given lac tulose for encephalopathy.
[2017-06-21] MEDS ORDERED: Ondansetron ODT 4 MG TAB ONE (20:12)
[2017-06-21 20:16] LABS: BF Color Yellow; BF RBC Count - Manual 195 /cumm; BF WBC/Nonhematics Ct. - Manua 60 /cumm; Body Fluid Source Ascites Body Fluid; Clarity Clear (Clear); Tube # EDTA
[2017-06-21 20:17] LABS: Lymphocytes 19 %
[2017-06-21 20:18] LABS: BF Segmented Neutrophils 2 %; Cell Count Non Hematic 79 %
[2017-06-21 21:38] LABS: Troponin I 0.076 ng/mL (< 0.028)
[2017-06-21 22:23] VITALS: BMI 22.8
[2017-06-21] MEDS: cefTRIAXone\\ROCEPHIN 2 GM in Sodium Chloride 0.9% 100 ML IVPB SCH (22:29)
[2017-06-21] MEDS ORDERED: Ondansetron HCl/PF 4 MG/2 ML Vial IVP PRN (23:23)
[2017-06-22 00:45] LABS: Bilirubin Negative (Negative); Blood, Urine Negative (Negative); Clarity CLEAR (Clear); Glucose, Urine (Dipstick) Negative (Negative); Leukocyte Negative (Negative); Nitrite Negative (Negative); Protein, Urine (Dipstick) Negative (Neg-Trace); Specific Gravity, Urine 1.022 (1.002-1.036); Urobilinogen 0.2 mg/dL (0.2-1.0)
--- NOTE | 2017-06-22 01:32 | PDOC.EVN ---
Event Note - Event Note Event Note: advanced care planning note dx: end stage liver disease, cirrhosis, possible SBP, possible GIB present: sister Neena (MPOA), brother, sister in law all at bedside discussion summary Discussed pt's overall limited alf prognosis given her known underlying cirrhosis. Patient is a DNR/ DNI. Discussed that with progression of disease, patient may have more acute episodes of illness and as these increase in frequency we would then consider change in site of care at discharge (family was curious when she might no longer be able to stay at home but want her to be at home as long as possible). Family also understands that if she has difficulty with treatment or recovery then a palliative conversation and hospice conversation may occur in the future. Greater than 25 minutes spent discussing advanced care planning.
[2017-06-22 02:12] LABS: Hemoglobin 7.3 g/dL (12.0-16.0); Mean Corpuscular Hemoglobin 38.5 pg (27.0-31.0); Mean Platelet Volume 8.5 fL (7.4-10.4); Platelet Count 88 thou/uL (130-400); RBC Distribution Width 13.4 % (11.5-14.5); Red Blood Cell (RBC) Count 1.89 mill/uL (4.20-5.40); White Blood Cell (WBC) Count 9.8 thou/uL (4.8-10.8)
[2017-06-22 02:19] LABS: Anion Gap 15 mmol/L (10-20); BUN (Urea Nitrogen) 57 mg/dL (9.8-20.1); Calc. Creatinine Clearance 47 mL/min (70-130); Calcium 8.5 mg/dL (7.8-10.44); Carbon Dioxide 19 mmol/L (23-31); Chloride 101 mmol/L (98-107); Estimated GFR-MDRD 51; Glucose 112 mg/dL (80-115); Potassium 6.1 mmol/L (3.5-5.1); Sodium 129 mmol/L (136-145)
--- NOTE | 2017-06-22 02:23 | HP ---
PRIMARY CARE PHYSICIAN: Demetris Piña M.D. REPRESENTATIVE GOVERNMENT RELATIONS: Joon Santos M.D. CHIEF COMPLAINT: Nausea, vomiting, diarrhea. HISTORY OF PRESENT ILLNESS: This is a 61-year-old female with a known history of end-stage liver disease and cirrhosis along with recent hospitalization for spontaneous bacterial peritonitis. She states that she started having nausea with vomiting in the last 1 to 2 days with intermittent diarrhea as well. She is accompanied by her brother, [id number], and sister at bedside, who state that she has been looking more confused and weaker the past week. Over the last 1-2 days with nausea and vomiting, she states that she sometimes has some black emesis and black stools. REVIEW OF SYSTEMS: As per above, the patient is a marginal historian unfortunately, easily confused and tangential, but her review of systems is as follows: Constitutional: The patient endorses feeling warm and feverish, but did not take any temperatures at home. Denies any chills. Unsure if she has lost or gained weight. HEENT: No new headaches, lightheadedness or dizziness. Family at bedside states that she has been more confused over the last week and looking weaker overall. Cardiovascular: Denies any chest pain or shortness of breath. Respiratory: Denies any recent upper respiratory infections or any new cough. Denies any postnasal drip. Gastrointestinal: As per above. States that she did not have much of bowel movement yesterday, but did have one today. She states that typically she has 3 to 4 loose stool movements daily. Genitourinary: Denies any change in urinary color, quantity, odor, or frequency. Musculoskeletal: Denies any myalgias or arthralgias. Remainder of the review of systems is otherwise negative. HOME MEDICATIONS: Please see the EMR for full record. The patient is on lactulose 10 g p.o. daily, furosemide 40 mg p.o. daily, folic acid 1 mg p.o. daily, spironolactone 50 mg p.o. b.i.d., and multivitamin 1 tab p.o. daily. ALLERGIES: Include SULFA ANTIBIOTICS, unknown reaction. FAMILY HISTORY: Significant for diabetes and lung cancer. SOCIAL HISTORY: The patient has no children. She is . She is accompanied today by her sister, brother and [id number]-[id number]-fik. Her sister at bedside, Neena Ruano is her medical power of immigration attorney and this is agreed upon by the other family members in the room. Please see advanced care planning note regarding discussion about code status. The patient is a former alcohol drinker, but per family at bedside she has not had any alcohol definitely since her last hospitalization and had not had any alcohol for months before her prior hospitalization. PHYSICAL EXAMINATION: GENERAL: The patient is awake, conversant, oriented to self, tangential historian. She appears slightly jaundiced. CARDIOVASCULAR: S1, S2. Prominent systolic ejection murmur heard over the entire precordium. Pulses 2+ bilateral upper extremities, 1+ pitting pedal edema. RESPIRATORY: Reasonable air movement. No shortness of breath with conversation. No wheezes, rales or rhonchi. ABDOMEN: Positive bowel sounds, soft, tender to moderate palpation. MUSCULOSKELETAL: Moving all 4 extremities. Independently able to apply her own mouth swabs. LABORATORY DATA AND IMAGING: WBC 7.6, hemoglobin 8.3, hematocrit 24.3, platelets 108. PT 21.1, INR 1.8. Sodium 126, potassium 6.2, chloride 96, bicarbonate 22, BUN 47, creatinine 1.04, glucose 118. Initial lactic acid 6.1, subsequent 4.3, total bilirubin 3.1, AST 61, alkaline phosphatase 93. Troponin 0.032 followed by 0.088, followed by 0.076. Lipase is 97. Total protein 4.9, albumin 2.3. UA is positive for trace ketones. Ascitic fluid is yellow, clear , WBC 60, RBC 195. The patient has a known history of Klebsiella from prior ascitic fluid. ASSESSMENT AND PLAN: A 61-year-old female presenting with nausea, vomiting. 1. Nausea and vomiting in the known setting of end-stage liver disease and cirrhosis. Appreciate Gastroenterology consult; at the time of my evaluation, the patient has already undergone a paracentesis, has been empirically placed on a regimen including ceftriaxone with diagnostic paracentesis sent for culture and octreotide. Continued to monitor. Continue with lactulose and the patient's mentation. 2. Hyperkalemia. Patient is currently asymptomatic, check an EKG in the morning. Serial BMP. Patient has also received Protonix 80 mg IV x1. We will continue with Protonix 40 mg IV b.i.d. 3. Admit the patient to IMCU. The patient is a DNR/DNI. Thank you for asking me to care for the patient. For questions or concerns, please contact me at [facility]. [place]
[2017-06-22 04:19] LABS: #Lymphocytes 1.5 thou/uL (1.20-3.40); #Monocytes 1.7 thou/uL (0.11-0.59); #Neutrophils 8.1 thou/uL (1.40-6.50); %Basophils 0.1 % (0.0-1.0); %Eosinophils 0.3 % (0.0-10.0); %Lymphocytes 13.2 % (21.0-51.0); %Monocytes 14.7 % (0.0-10.0); %Neutrophils 71.7 % (42.0-75.0); Hemoglobin 7.6 g/dL (12.0-16.0); Mean Corpuscular HGB CONC 34.3 g/dL (32.0-36.0); Mean Corpuscular Hemoglobin 38.6 pg (27.0-31.0); Mean Platelet Volume 8.7 fL (7.4-10.4); Platelet Count 90 thou/uL (130-400); RBC Distribution Width 13.5 % (11.5-14.5); Red Blood Cell (RBC) Count 1.96 mill/uL (4.20-5.40); White Blood Cell (WBC) Count 11.3 thou/uL (4.8-10.8)
[2017-06-22 04:29] LABS: ALT (SGPT) 121 U/L (8-55); AST (SGOT) 177 U/L (5-34); Albumin 2.9 g/dL (3.4-4.8); Alkaline Phosphatase 82 U/L (40-150); Anion Gap 14 mmol/L (10-20); BUN (Urea Nitrogen) 57 mg/dL (9.8-20.1); Bilirubin, Total 3.9 mg/dL (0.2-1.2); Calc. Creatinine Clearance 47 mL/min (70-130); Calcium 8.7 mg/dL (7.8-10.44); Carbon Dioxide 21 mmol/L (23-31); Chloride 102 mmol/L (98-107); Estimated GFR-MDRD 52; Globulin 2.5 g/dL (2.4-3.5); Glucose 112 mg/dL (80-115); Potassium 6.3 mmol/L (3.5-5.1); Protein, Total 5.4 g/dL (6.0-8.3); Sodium 131 mmol/L (136-145)
[2017-06-22 07:49] LABS: Hemoglobin 7.2 g/dL (12.0-16.0); Mean Corpuscular Hemoglobin 38.2 pg (27.0-31.0); Mean Platelet Volume 8.3 fL (7.4-10.4); Platelet Count 85 thou/uL (130-400); RBC Distribution Width 13.4 % (11.5-14.5); Red Blood Cell (RBC) Count 1.88 mill/uL (4.20-5.40)
[2017-06-22 08:02] LABS: Anion Gap 18 mmol/L (10-20); BUN (Urea Nitrogen) 63 mg/dL (9.8-20.1); Calc. Creatinine Clearance 40 mL/min (70-130); Calcium 8.5 mg/dL (7.8-10.44); Carbon Dioxide 17 mmol/L (23-31); Chloride 103 mmol/L (98-107); Estimated GFR-MDRD 43; Glucose 114 mg/dL (80-115); Potassium 5.7 mmol/L (3.5-5.1); Sodium 132 mmol/L (136-145)
[2017-06-22] MEDS: Multivit, Therapeutic 1 TAB PO SCH (08:54)
[2017-06-22] MEDS: Folic Acid 1 MG TAB PO SCH (08:54)
[2017-06-22] MEDS: Pantoprazole 40 MG VIAL IVP SCH ×2 (08:55→20:28)
[2017-06-22] MEDS ORDERED: Spironolactone 25 MG TAB PO SCH (09:00)
[2017-06-22] MEDS ORDERED: Lidocaine 1% PF 5 ML VIAL ONE (11:01)
[2017-06-22] MEDS ORDERED: PROPOFOL 200 MG/20 ML VIAL ONE (11:01)
--- NOTE | 2017-06-22 11:15 | PDOC.PN ---
- Subjective Encounter Start Date: 06/22/17 Encounter Start Time: 11:12 Subjective: thirsty, uncomfortable - Objective Resuscitation Status: Resuscitation Status DNR:Do Not Resuscitate MAR Reviewed: Yes Vital Signs & Weight: Vital Signs (12 hours) Temp Pulse Resp BP Pulse Ox 06/22/17 11:00 97.6 F 92 18 90/35 L 100 06/22/17 08:00 98.4 F 97 17 100 06/22/17 07:30 98.4 F 97 17 101/45 L 93 L 06/22/17 03:55 100 15 96/37 L 98 06/22/17 00:00 98.1 F 97 14 99/38 L 100 Weight Weight 119 lb 12.8 oz I&O: 06/21/17 06/22/17 06/23/17 06:59 06:59 06:59 Intake Total 90 Output Total 200 Balance -110 Result Diagrams: 06/22/17 07:30 06/22/17 07:30 Phys Exam - Physical Examination Neck: no JVD Respiratory: clear to auscultation bilateral Cardiovascular: RRR, no significant murmur tender, distended, BS present Musculoskeletal: edema present Dx/Plan (1) GI bleeding Code(s): K92.2 - GASTROINTESTINAL HEMORRHAGE, UNSPECIFIED Status: Acute Qualifiers: GI bleed type/associated pathology: unspecified gastrointestinal hemorrhage type Qualified Code(s): K92.2 - Gastrointestinal hemorrhage, unspecified (2) Coagulopathy Status: Acute (3) Esophageal varices Code(s): I85.00 - ESOPHAGEAL VARICES WITHOUT BLEEDING Status: Acute Qualifiers: Esophageal varices bleeding: with bleeding (4) Anemia due to blood loss, acute Code(s): D62 - ACUTE POSTHEMORRHAGIC ANEMIA Status: Acute (5) Spontaneous bacterial peritonitis Code(s): K65.2 - SPONTANEOUS BACTERIAL PERITONITIS Status: Acute (6) Alcoholic cirrhosis of liver Code(s): K70.30 - ALCOHOLIC CIRRHOSIS OF LIVER WITHOUT ASCITES Status: Chronic Qualifiers: Ascites presence: with ascites - Plan serial H&H, transfuse prn -: cont octreotide -: iv fluids. cont antibx for SBP pending ascitic fluid C&S * .
[2017-06-22 14:16] LABS: Hemoglobin 6.7 g/dL (12.0-16.0); Mean Corpuscular Hemoglobin 38.3 pg (27.0-31.0); Mean Platelet Volume 8.4 fL (7.4-10.4); Platelet Count 90 thou/uL (130-400); RBC Distribution Width 13.6 % (11.5-14.5); Red Blood Cell (RBC) Count 1.75 mill/uL (4.20-5.40); White Blood Cell (WBC) Count 9.9 thou/uL (4.8-10.8)
[2017-06-22 14:26] LABS: Anion Gap 9 mmol/L (10-20); BUN (Urea Nitrogen) 67 mg/dL (9.8-20.1); Calc. Creatinine Clearance 40 mL/min (70-130); Calcium 8.8 mg/dL (7.8-10.44); Carbon Dioxide 25 mmol/L (23-31); Chloride 102 mmol/L (98-107); Estimated GFR-MDRD 43; Glucose 128 mg/dL (80-115); Potassium 5.2 mmol/L (3.5-5.1); Sodium 131 mmol/L (136-145)
--- NOTE | 2017-06-22 14:26 | PRG ---
DATE OF SERVICE: 06/22/2017 Ms. Pichardo is much more alert after having received her lactulose. She is oriented x3 now. Nursing reports she passed 3 black stools. Her hemoglobin has decreased further. Paracentesis, rule out SBP . We will plan EGD today to rule out peptic ulcer or variceal bleeding.
[2017-06-22] MEDS ORDERED: Promethazine HCl 25 MG/ML VIAL IM PRN (15:14)
[2017-06-22] MEDS ORDERED: Promethazine HCl 25 MG/ML VIAL SLOW IVP PRN (15:14)
[2017-06-22] MEDS ORDERED: Ondansetron HCl/PF 4 MG/2 ML Vial IVP PRN (15:14)
[2017-06-22] MEDS: D5 1/4 NS 1,000 ML IV SCH (16:17)
--- NOTE | 2017-06-22 16:29 | OP ---
DATE OF PROCEDURE: 06/22/2017 PROCEDURE: Esophagogastroduodenoscopy. PREOPERATIVE DIAGNOSIS: Anemia and reported black stools with evidence of gastrointestinal bleed. OPERATIVE PROCEDURE IN DETAIL: Informed consent was obtained from the patient. She was sedated with total intravenous anesthesia. The bite block was placed and the endoscope was advanced easily to th e second portion of the duodenum and retroflexion was performed in the stomach. The esophagus had gr danya I esophageal varices, 2 columns, one had a few red spots on it, but nothing that looked like any significant bleeding source. These were not bandable. The stomach had moderate to severe portal hyp ertensive gastropathy in the body and fundus. There were no gastric varices. The pylorus and first and second portions of the duodenum were normal. There was no evidence of recent bleeding in the sto mach. She did pass a liquidy dark brown stool after the procedure as it did not appear melenic. IMPRESSION: 1. Small grade I varices, 1-2 columns. No stigmata of recent bleeding. 2. Moderate to severe portal hypertensive gastropathy. 3. Otherwise normal esophagogastroduodenoscopy with no evidence of recent bleeding or stigmata of re cent bleeding. 4. She passed a dark greenish brown liquid stool during the procedure, but it does not appear meleni c. RECOMMENDATIONS: 1. We will check stool for C. diff and culture; however, her diarrhea is likely secondary to the ant ibiotics. 2. Transfuse a unit of blood now. 3. Given the abdominal pain and drop in her hemoglobin without clear overt bleed, I will check a CT scan of the abdomen without pelvis to rule out a retroperitoneal bleed.
--- NOTE | 2017-06-22 18:46 | CT ---
CT OF THE ABDOMEN AND PELVIS WITHOUT IV CONTRAST: 06/22/17 INDICATION: Concern for retroperitoneal hemorrhage. FINDINGS: No retroperitoneal hemorrhage is evident. There is a small right pleural effusion and right basilar a telectasis. There is moderate ascites. There is cirrhotic morphology of the liver. Spleen measures 11 .8 cm. Unopacified pancreas, adrenal glands and kidneys are unremarkable. There are moderate calcific ations involving the abdominal aorta. There are mild to moderately dilated loops of small bowel witho ut a transition zone. Normal appendix seen within the right lower quadrant. Chronic osseous changes a ppear similar to the comparison study. IMPRESSION: 1. No evidence for retroperitoneal hematoma. 2. Cirrhosis with moderate ascites. 3. Small right pleural effusion and right basilar atelectasis. POS: [facility]
[2017-06-22] MEDS: cefTRIAXone\\ROCEPHIN 2 GM in Sodium Chloride 0.9% 100 ML IVPB SCH (20:28)
[2017-06-22 20:38] LABS: Hemoglobin 6.2 g/dL (12.0-16.0); Mean Corpuscular HGB CONC 34.3 g/dL (32.0-36.0); Mean Corpuscular Hemoglobin 38.7 pg (27.0-31.0); Mean Platelet Volume 8.2 fL (7.4-10.4); Platelet Count 72 thou/uL (130-400); RBC Distribution Width 13.5 % (11.5-14.5)
[2017-06-22 20:43] LABS: Anion Gap 11 mmol/L (10-20); BUN (Urea Nitrogen) 64 mg/dL (9.8-20.1); Calc. Creatinine Clearance 41 mL/min (70-130); Calcium 8.4 mg/dL (7.8-10.44); Carbon Dioxide 21 mmol/L (23-31); Chloride 102 mmol/L (98-107); Estimated GFR-MDRD 44; Glucose 198 mg/dL (80-115); Potassium 4.8 mmol/L (3.5-5.1); Sodium 129 mmol/L (136-145)
[2017-06-22] MEDS ORDERED: traMADol HCl 50 MG TAB PO PRN (21:58)
--- NOTE | 2017-06-23 01:20 | CON ---
DATE OF CONSULTATION: 06/22/2017 Ms. Pichardo is a very pleasant woman, who says she has been healthy until this admission. She says she has had epigastric discomfort for over a week that has been fairly significant. She presented with melena. She has also been told by her family she is getting pale. She has had some nausea and vomiting. She denied just throwing up bright red blood. PAST MEDICAL HISTORY: Remarkable for, 1. Cirrhosis. 2. Spontaneous bacterial peritonitis. 3. She has a history of heavy alcohol use in the past. 4. She has a portal gastropathy noted by Dr. Carbone in April. 5. She has grade 2 varices by history. It has never been banded and never bled. 6. She has had a workup for portal vein thrombosis and does not have that. 7. She is status post workup for hepatitis with negative serology for A, B, and C and negative for autoimmune hepatitis. 8. History of hepatic encephalopathy in the past. 9. History of reflux. 10. History of a D and C. 11. History of a breast biopsy in the past. ALLERGIES: She reports allergies to SULFA. SOCIAL HISTORY: She is a , has no children, is a nonsmoker and nondrinker. She has a sister, Neena, according to Dr. Carbone' note is the medical power of trust and estates attorney. She apparently has expressed in the past that she be a DO NOT RESUSCITATE status. FAMILY HISTORY: Negative for lung disease at an early age, but positive for lung cancer and diabetes. MEDICATIONS: When she was here in April, she was on Lasix, lactulose, lorazepam , Zofran, Protonix, and Aldactone. REVIEW OF SYSTEMS: A 10-point review of systems is, otherwise, negative. PHYSICAL EXAMINATION: GENERAL: Patient was healthy until this admission VITAL SIGNS: She is afebrile, heart rate is 92, respiratory rate is 18, oximetry is 100% on room air, blood pressure is 90/35. HEENT: Pupils are equal. Sclerae is slightly icteric. She is pale and slightly icteric. NECK: Supple, no lymphadenopathy. LUNGS: Clear. HEART: Regular rhythm, no S3. ABDOMEN: Soft and nontender. EXTREMITIES: Without clubbing, cyanosis, or edema. LABORATORY DATA: Sodium 131, potassium 5.2, chloride 102, bicarb 25, BUN 67, creatinine 1.26. Bilirubin was 3.9, AST 177, ALT 121. Albumin is 2.9. Protime is 21, hemoglobin 7.2 at 07:30 this morning and was 6.7 this afternoon. IMPRESSION: 1. Gastrointestinal bleed, scheduled for endoscopy today. 2. Blood loss anemia. 3. Coagulopathy. I will defer to Gastroenterology, but I believe she needs packed red cells as well as probably fresh-frozen plasma. Further workup and care will depend on findings at endoscopy. With regard to her history of DO NOT RESUSCITATE status back in April, this needs to be reconfirmed with the patient's medical power of trust and estates attorney, who was not at the bedside when I evaluated her today. This is a 50 minute consult with greater than 50% of the time spent on the unit with coordination of care. [place]
[2017-06-23 02:01] LABS: Mean Corpuscular HGB CONC 33.7 g/dL (32.0-36.0); Mean Corpuscular Hemoglobin 37.8 pg (27.0-31.0); Platelet Count 68 thou/uL (130-400); RBC Distribution Width 13.9 % (11.5-14.5); Red Blood Cell (RBC) Count 1.59 mill/uL (4.20-5.40); White Blood Cell (WBC) Count 7.8 thou/uL (4.8-10.8)
[2017-06-23 02:06] LABS: Prothrombin Time 23.3 SEC (12.0-14.7)
[2017-06-23 02:19] LABS: Anion Gap 9 mmol/L (10-20); BUN (Urea Nitrogen) 60 mg/dL (9.8-20.1); Calc. Creatinine Clearance 49 mL/min (70-130); Calcium 8.2 mg/dL (7.8-10.44); Carbon Dioxide 22 mmol/L (23-31); Chloride 102 mmol/L (98-107); Estimated GFR-MDRD 55; Glucose 100 mg/dL (80-115); Potassium 4.2 mmol/L (3.5-5.1); Sodium 129 mmol/L (136-145)
[2017-06-23] MEDS: Folic Acid 1 MG TAB PO SCH (07:38)
[2017-06-23] MEDS: Multivit, Therapeutic 1 TAB PO SCH (07:38)
[2017-06-23] MEDS: Pantoprazole 40 MG VIAL IVP SCH ×2 (07:39→22:56)
[2017-06-23] MEDS: D5 1/4 NS 1,000 ML IV SCH (10:33)
[2017-06-23] MEDS: Sodium Chloride 0.9% 1,000 ML IV SCH ×2 (10:55→22:55)
[2017-06-23] MEDS ORDERED: Octreotide Acetate 1,250 MCG in Sodium Chloride 0.9% 250 ML 250 ML IVPB SCH (11:45)
[2017-06-23 11:55] LABS: Hemoglobin 6.1 g/dL (12.0-16.0); Mean Corpuscular HGB CONC 34.6 g/dL (32.0-36.0); Mean Corpuscular Hemoglobin 38.7 pg (27.0-31.0); Mean Platelet Volume 7.9 fL (7.4-10.4); Platelet Count 64 thou/uL (130-400); RBC Distribution Width 13.9 % (11.5-14.5); Red Blood Cell (RBC) Count 1.59 mill/uL (4.20-5.40); White Blood Cell (WBC) Count 6.3 thou/uL (4.8-10.8)
[2017-06-23 12:14] LABS: Anion Gap 7 mmol/L (10-20); BUN (Urea Nitrogen) 47 mg/dL (9.8-20.1); Calc. Creatinine Clearance 56 mL/min (70-130); Calcium 8.2 mg/dL (7.8-10.44); Carbon Dioxide 24 mmol/L (23-31); Chloride 101 mmol/L (98-107); Estimated GFR-MDRD 66; Glucose 113 mg/dL (80-115); Sodium 128 mmol/L (136-145)
[2017-06-23 13:48] LABS: Anion Gap 10 mmol/L (10-20); BUN (Urea Nitrogen) 44 mg/dL (9.8-20.1); Calc. Creatinine Clearance 56 mL/min (70-130); Calcium 8.2 mg/dL (7.8-10.44); Carbon Dioxide 21 mmol/L (23-31); Chloride 101 mmol/L (98-107); Estimated GFR-MDRD 66; Glucose 92 mg/dL (80-115); Sodium 128 mmol/L (136-145)
[2017-06-23] MEDS ORDERED: Phytonadione 10 MG/ML AMP SC SCH (14:00)
--- NOTE | 2017-06-23 14:05 | PRG ---
DATE OF SERVICE: 06/23/2017 SUBJECTIVE: Ms. Pichardo has no abdominal pain today. She did have one bowel movement this morning, w hich was dark, no red blood in the stool. No nausea or vomiting. She is tolerating a low fiber diet . She does complain of more diarrhea yesterday. OBJECTIVE: VITAL SIGNS: Temperature 98.0, pulse is 86, blood pressure 97/55. GENERAL: She is in no acute distress. She is oriented x3. LUNGS: Clear to auscultation bilaterally. HEART: Regular rate and rhythm. ABDOMEN: Soft, nontender, nondistended. Bowel sounds are present. EXTREMITIES: No lower extremity edema. IMPRESSION: 1. Anemia, likely secondary to acute blood loss. She has had some dark stools. EGD showed some sma ll varices without stigmata of recent bleeding. Her hemoglobin has dropped down to 6.1. She will re ceive a couple of units transfusion today. 2. Alcoholic cirrhosis, decompensated. 3. Ascites. Fluid studies are negative for evidence of spontaneous bacterial peritonitis. 4. Hepatic encephalopathy is stable at the moment. RECOMMENDATIONS: 1. Continue octreotide drip. 2. Continue ceftriaxone. 3. Blood transfusion. 4. We will give a dose of vitamin K if there is a dietary component to her elevated INR. 5. We will continue to monitor her hemoglobin.
[2017-06-23] MEDS: Azithromycin 500 MG in Sodium Chloride 0.9% 250 ML 250 ML IVPB SCH (15:11)
[2017-06-23 15:18] LABS: Hemoglobin 8.6 g/dL (12.0-16.0); Mean Corpuscular HGB CONC 33.8 g/dL (32.0-36.0); Mean Corpuscular Hemoglobin 36.5 pg (27.0-31.0); Mean Platelet Volume 8.2 fL (7.4-10.4); Platelet Count 56 thou/uL (130-400); RBC Distribution Width 18.1 % (11.5-14.5); Red Blood Cell (RBC) Count 2.36 mill/uL (4.20-5.40); White Blood Cell (WBC) Count 6.9 thou/uL (4.8-10.8)
--- NOTE | 2017-06-23 15:23 | PRG ---
DATE OF SERVICE: 06/23/2017 SUBJECTIVE: Marii Pichardo has no complaints. She had green bowel movement during endoscopy yesterday , no source of bleeding is identified. She had small varices in her esophagus. She had portal gastr opathy. Her hemoglobin 6 grams this morning, so I have ordered 2 units packed cells. OBJECTIVE: LUNGS: Clear. HEART: Regular rhythm. ABDOMEN: Remarkable for mild ascites. EXTREMITIES: Without edema or asymmetry. IMPRESSION: Gastrointestinal blood loss on top of anemia of chronic disease secondary to cirrhosis. PLAN: She can be transferred to a medical bed since she is not acutely bleeding and no source was fo und. Her hemoglobin and hematocrit continue to be followed in a medical bed without telemetry monito ring. I discussed the above with the Hospitalist as well.
--- NOTE | 2017-06-23 16:30 | PDOC.PN ---
- Subjective Encounter Start Date: 06/23/17 Encounter Start Time: 16:28 Patient seen and examined, no new issues or concerns, friend at bedside, all questions answered. - Objective Resuscitation Status: Resuscitation Status DNR:Do Not Resuscitate Vital Signs & Weight: Vital Signs (12 hours) Temp Pulse Pulse Resp BP BP BP 06/23/17 13:50 97.8 F 82 20 108/67 06/23/17 11:45 98.0 F 86 16 97/55 L 06/23/17 11:21 98.7 F 87 18 97/47 L 06/23/17 08:00 98.1 F 88 20 06/23/17 07:46 98.1 F 88 20 89/37 L Pulse Ox 06/23/17 13:50 98 06/23/17 11:45 98 06/23/17 11:21 98 06/23/17 08:00 100 06/23/17 07:46 100 Weight Weight 116 lb 3.2 oz I&O: 06/22/17 06/23/17 06/24/17 06:59 06:59 06:59 Intake Total 90 1750 840 Output Total 200 900 Balance -110 850 840 Result Diagrams: 06/23/17 15:10 06/23/17 13:16 Phys Exam - Physical Examination Constitutional: NAD HEENT: PERRLA, moist MMs, sclera anicteric Neck: no nodes, no JVD, supple Respiratory: no wheezing, no rales, no rhonchi Cardiovascular: RRR, no significant murmur, no rub Gastrointestinal: soft, non-tender, no distention Musculoskeletal: pulses present, edema present (trace) Neurological: non-focal, normal sensation Psychiatric: normal affect, A&O x 3 Skin: no rash, normal turgor Dx/Plan (1) Anemia due to blood loss, acute Code(s): D62 - ACUTE POSTHEMORRHAGIC ANEMIA Status: Acute (2) Coagulopathy Status: Acute (3) Esophageal varices Code(s): I85.00 - ESOPHAGEAL VARICES WITHOUT BLEEDING Status: Acute Qualifiers: Esophageal varices bleeding: with bleeding (4) GI bleeding Code(s): K92.2 - GASTROINTESTINAL HEMORRHAGE, UNSPECIFIED Status: Acute Qualifiers: GI bleed type/associated pathology: unspecified gastrointestinal hemorrhage type Qualified Code(s): K92.2 - Gastrointestinal hemorrhage, unspecified (5) GERD (gastroesophageal reflux disease) Code(s): K21.9 - GASTRO-ESOPHAGEAL REFLUX DISEASE WITHOUT ESOPHAGITIS Status: Acute (6) Nausea Code(s): R11.0 - NAUSEA Status: Acute (7) Alcoholic cirrhosis of liver Code(s): K70.30 - ALCOHOLIC CIRRHOSIS OF LIVER WITHOUT ASCITES Status: Chronic Qualifiers: Ascites presence: with ascites - Plan * transfuse PRBCs in ICU and then transfer to telemetry floor * GI following, s/p EGD * will monitor with H&H q12hrs for now * patient states she is trying to get insurance in order to have herself listed for a transplant * cont abx and octreotide * case and plan d/w patient and friend at length, they understand and agree with this plan
--- NOTE | 2017-06-23 21:24 | ADD-PRG ---
ADDENDUM Campylobacter antigen came back positive. We will stop the ceftriaxone as there is a poor susceptibi lity to this medication for Campylobacter. We will start azithromycin 500 mg daily instead.
[2017-06-23 22:41] LABS: Hemoglobin 9.1 g/dL (12.0-16.0); Mean Corpuscular HGB CONC 33.9 g/dL (32.0-36.0); Mean Platelet Volume 8.2 fL (7.4-10.4); Platelet Count 58 thou/uL (130-400); RBC Distribution Width 18.1 % (11.5-14.5); White Blood Cell (WBC) Count 6.5 thou/uL (4.8-10.8)
[2017-06-23 22:51] LABS: Anion Gap 11 mmol/L (10-20); BUN (Urea Nitrogen) 33 mg/dL (9.8-20.1); Calc. Creatinine Clearance 70 mL/min (70-130); Calcium 8.3 mg/dL (7.8-10.44); Carbon Dioxide 22 mmol/L (23-31); Chloride 102 mmol/L (98-107); Estimated GFR-MDRD 86; Glucose 88 mg/dL (80-115); Potassium 3.9 mmol/L (3.5-5.1); Sodium 131 mmol/L (136-145)
[2017-06-24 05:57] LABS: ALT (SGPT) 149 U/L (8-55); AST (SGOT) 194 U/L (5-34); Albumin 2.4 g/dL (3.4-4.8); Alkaline Phosphatase 82 U/L (40-150); Anion Gap 7 mmol/L (10-20); BUN (Urea Nitrogen) 28 mg/dL (9.8-20.1); Bilirubin, Total 4.8 mg/dL (0.2-1.2); Calc. Creatinine Clearance 75 mL/min (70-130); Calcium 7.9 mg/dL (7.8-10.44); Carbon Dioxide 23 mmol/L (23-31); Chloride 105 mmol/L (98-107); Estimated GFR-MDRD Greater than 90; Globulin 2.2 g/dL (2.4-3.5); Glucose 68 mg/dL (80-115); Potassium 3.9 mmol/L (3.5-5.1); Protein, Total 4.6 g/dL (6.0-8.3); Sodium 131 mmol/L (136-145)
[2017-06-24 06:22] LABS: Anisocytosis SLIGHT = 6-15 cells (100X) (0-5/hpf); Band 1 % (5-11); Eosinophils 1 % (0-10); Hemoglobin 8.5 g/dL (12.0-16.0); Hypochromia SLIGHT = 6-15 cells (100X) (0-5/hpf); Lymphocytes 27 % (21-51); MDiff Complete? YES; Mean Corpuscular HGB CONC 35.2 g/dL (32.0-36.0); Mean Corpuscular Hemoglobin 35.6 pg (27.0-31.0); Mean Platelet Volume 7.5 fL (7.4-10.4); Monocytes 12 % (0-10); Neutrophil 59 % (42-75); PLT Morphology Comment Appears Decreased; Platelet Count 50 thou/uL (130-400); RBC Distribution Width 18.1 % (11.5-14.5); Red Blood Cell (RBC) Count 2.39 mill/uL (4.20-5.40); White Blood Cell (WBC) Count 5.5 thou/uL (4.8-10.8)
--- NOTE | 2017-06-24 11:00 | PDOC.PN ---
- Subjective Encounter Start Date: 06/24/17 Encounter Start Time: 10:59 Patient seen and examined, sister at bedside, no new issues in the last 24 hours , all questions answered. - Objective Resuscitation Status: Resuscitation Status DNR:Do Not Resuscitate Vital Signs & Weight: Vital Signs (12 hours) Temp Pulse Resp BP Pulse Ox 06/24/17 08:00 99.7 F H 85 16 94/51 L 95 06/24/17 06:13 98.6 F 86 18 95/48 L Weight Weight 126 lb 1 oz I&O: 06/23/17 06/24/17 06/25/17 06:59 06:59 06:59 Intake Total 1750 2120 0 Output Total 900 400 Balance 850 1720 0 Result Diagrams: 06/24/17 05:17 06/24/17 05:17 Phys Exam - Physical Examination Constitutional: NAD HEENT: PERRLA, moist MMs, sclera anicteric Neck: no nodes, no JVD, supple Respiratory: no wheezing, no rales, no rhonchi Cardiovascular: RRR, no significant murmur, no rub Gastrointestinal: soft, non-tender, no distention, positive bowel sounds Musculoskeletal: pulses present, edema present (trace) Neurological: non-focal, normal sensation Psychiatric: normal affect, A&O x 3 Skin: no rash, normal turgor Dx/Plan (1) Anemia due to blood loss, acute Code(s): D62 - ACUTE POSTHEMORRHAGIC ANEMIA Status: Acute (2) Coagulopathy Status: Acute (3) Esophageal varices Code(s): I85.00 - ESOPHAGEAL VARICES WITHOUT BLEEDING Status: Acute Qualifiers: Esophageal varices bleeding: with bleeding (4) GI bleeding Code(s): K92.2 - GASTROINTESTINAL HEMORRHAGE, UNSPECIFIED Status: Acute Qualifiers: GI bleed type/associated pathology: unspecified gastrointestinal hemorrhage type Qualified Code(s): K92.2 - Gastrointestinal hemorrhage, unspecified (5) GERD (gastroesophageal reflux disease) Code(s): K21.9 - GASTRO-ESOPHAGEAL REFLUX DISEASE WITHOUT ESOPHAGITIS Status: Acute (6) Nausea Code(s): R11.0 - NAUSEA Status: Acute (7) Alcoholic cirrhosis of liver Code(s): K70.30 - ALCOHOLIC CIRRHOSIS OF LIVER WITHOUT ASCITES Status: Chronic Qualifiers: Ascites presence: with ascites - Plan * continue PT/OT * monitor Hgb for now, repeat in AM * Dietary evaluation * DC plans in 24-48hrs if Hgb holding stable and ok with GI team * Patient's sister is MPOA and states that the patient is a DNR * case and plan d/w patient and sister at length, they understand and agree with this plan
[2017-06-24] MEDS: Folic Acid 1 MG TAB PO SCH (11:09)
[2017-06-24] MEDS: Multivit, Therapeutic 1 TAB PO SCH (11:09)
[2017-06-24] MEDS: Pantoprazole 40 MG VIAL IVP SCH (11:10)
--- NOTE | 2017-06-24 12:26 | PRG ---
DATE OF SERVICE: 06/24/2017 SUBJECTIVE: Ms. Pichardo says she is feeling pretty well today. She feels mentally clear. She tolera bronwyn her breakfast just fine. There is no abdominal pain or nausea. She says her last bowel movement was yesterday evening and it was nonmelenic. She got 2 units of RBCs yesterday and hemoglobin is st able from yesterday evening. PHYSICAL EXAMINATION: VITAL SIGNS: Temperature 99.7, pulse 82, blood pressure 116/65, 95% oxygen saturation on room air. GENERAL: Sitting up in the edge of the bed in no acute distress, mildly jaundiced. HEART: Regular rate and rhythm. LUNGS: Clear to auscultation bilaterally. ABDOMEN: Distended, soft, nontender to palpation. EXTREMITIES: No peripheral edema. LABORATORY STUDIES: Sodium 131, potassium 3.9, BUN 28, creatinine 0.65. Total bilirubin 4.8, alkali ne phosphatase 82, AST 194, ALT 149. WBC 5.5, hemoglobin 8.5, stable from 8.6 post-transfusion yeste rday, platelets 50. INR is 2.0. MELD score calculates out to 24. ASSESSMENT AND PLAN: 1. Anemia. It is unclear exactly what was driving her recently worsening anemia. She did have carolyn stoney stools and significant hemoglobin decline, but EGD performed by Dr. Santos was essentially negativ e for anything significantly bleeding. It did not appear she had bleeding from her very small esopha geal varices. At any rate, hemoglobin is stable today after transfusion yesterday, and there has bee n no melenic stool for at least the past day. No bowel movements today. I will go ahead and discont inue the octreotide. I would continue to observe her at least one more night here in the hospital, m onitor for any evidence of overt gastrointestinal bleeding and follow H&H tomorrow. Would continue h er PPI. 2. Alcoholic cirrhosis, initial decompensation was late last year. MELD score has steadily climbed up to 24 now. As she is uninsured, she is not a candidate for liver transplantation evaluation, but she is working on this. 3. Hepatic encephalopathy. This was evidently recurrent upon presentation, but appears to have sol red up at this point. I stressed with her that she really needs to comply with the lactulose. I wo uld have her take it at least 3 times per day. 4. Campylobacter infection. This may have been the primary reason for her presentation with abdomin al pain and worsened encephalopathy and diarrhea. Symptoms of abdominal pain and diarrhea have impro chon. She was transitioned to azithromycin yesterday. Upon hospital discharge, I would transition th e azithromycin to oral dosing. Would give her 500 mg orally for a 5-day course. If the patient is otherwise feeling well with stable hemoglobin and no evidence of bleeding tomorrow morning, she could potentially be discharged from the hospital at that time. We will have her follow up closely in the clinic afterward.
[2017-06-24] MEDS: Azithromycin 500 MG in Sodium Chloride 0.9% 250 ML 250 ML IVPB SCH (15:47)
[2017-06-24] MEDS: Calcium Carbonate 500 MG ChewTAB PO SCH (19:09)
[2017-06-25 06:17] LABS: ALT (SGPT) 143 U/L (8-55); AST (SGOT) 160 U/L (5-34); Albumin 2.5 g/dL (3.4-4.8); Alkaline Phosphatase 95 U/L (40-150); Anion Gap 8 mmol/L (10-20); BUN (Urea Nitrogen) 18 mg/dL (9.8-20.1); Bilirubin, Total 3.4 mg/dL (0.2-1.2); Calc. Creatinine Clearance 83 mL/min (70-130); Calcium 7.8 mg/dL (7.8-10.44); Carbon Dioxide 21 mmol/L (23-31); Chloride 107 mmol/L (98-107); Estimated GFR-MDRD Greater than 90; Globulin 2.5 g/dL (2.4-3.5); Glucose 76 mg/dL (80-115); Potassium 3.8 mmol/L (3.5-5.1); Sodium 132 mmol/L (136-145)
[2017-06-25 06:39] LABS: Eosinophils 6 % (0-10); Hemoglobin 9.4 g/dL (12.0-16.0); Lymphocytes 19 % (21-51); MDiff Complete? YES; Macrocytosis SLIGHT = 6-15 cells (100X) (0-5/hpf); Mean Corpuscular HGB CONC 34.6 g/dL (32.0-36.0); Mean Corpuscular Hemoglobin 35.6 pg (27.0-31.0); Mean Platelet Volume 8.2 fL (7.4-10.4); Monocytes 16 % (0-10); Neutrophil 59 % (42-75); PLT Morphology Comment Appears Decreased; Platelet Count 65 thou/uL (130-400); RBC Distribution Width 17.6 % (11.5-14.5); Red Blood Cell (RBC) Count 2.63 mill/uL (4.20-5.40); White Blood Cell (WBC) Count 6.7 thou/uL (4.8-10.8)
[2017-06-25 07:54] VITALS: BP 93/49; TEMP 98.6
[2017-06-25] MEDS: Calcium Carbonate 500 MG ChewTAB PO SCH (08:44)
[2017-06-25] MEDS: Folic Acid 1 MG TAB PO SCH (08:44)
[2017-06-25] MEDS: Multivit, Therapeutic 1 TAB PO SCH (08:44)
--- NOTE | 2017-06-25 10:28 | PDOC.EVN ---
Event Note - Event Note Event Note: DC SUMMARY #[id number]
--- NOTE | 2017-06-25 16:08 | DIS ---
DATE OF ADMISSION: 06/21/2017 DATE OF DISCHARGE: 06/25/2017 ADMITTING DIAGNOSES: Nausea, vomiting, diarrhea, cirrhosis secondary to alcohol abuse, spontaneous b acterial peritonitis, gastrointestinal hemorrhage, and alcohol abuse. DISCHARGE DIAGNOSES: Nausea, vomiting, diarrhea, resolved; cirrhosis, stable; alcohol abuse, stable; gastrointestinal hemorrhage, resolved; spontaneous bacterial peritonitis, resolved, hemoglobin stabl e. HOSPITAL COURSE: This is a 61-year-old female, who was admitted to the hospital to the Internal Medi cine team, also followed very closely by critical care and GI. The patient was admitted to the ICU w here she was found to have severe significant bleeding and coagulopathy. Hemoglobin level was found to be as low as 6. The patient received multiple transfusions and also had procedures done with GI f or EGD. The patient was found to have decompensated cirrhosis as well as a small grade 1 varices wit h no bleeding stigmata, and significant [id number] portal hypertension noted on EGD as well. At the point in time of discharge, the patient's hemoglobin had actually gone to 9.4, day before was 8.5, upward trending hemoglobin. No signs of bleeding whatsoever. The patient had had 2 bowel move ments that were not black, tarry, or bright red in nature. Per patient, she stated that she felt dom t she was back to her baseline. The patient was advised to follow up with outpatient GI as well as o btain insurance as soon as possible so that she may list herself for a transplant. The patient's KARUNA D score at the point in time of discharge declined to 124. Case and plan discussed with the patient at length. She understood and agreed with this plan. DISPOSITION: Home. FOLLOWUP: With PCP and GI within 1 week. MEDICATIONS: See MAR. ACTIVITY: As tolerated with assistance as appropriate, if needed. CONDITION ON DISCHARGE: Stable. PROGNOSIS: Guarded. DIET: Low fat, low calorie, high fiber diet, preferably low salt. Once again, case and plan discussed with the patient at length. She understands and agrees with this plan.
--- NOTE | 2017-06-29 16:32 | EKG ---
Test Reason : TACHYCARDIC Blood Pressure : / mmHG Vent. Rate : 094 BPM Atrial Rate : 094 BPM P-R Int : 136 ms QRS Dur : 074 ms QT Int : 370 ms P-R-T Axes : 066 009 049 degrees QTc Int : 462 ms Normal sinus rhythm Low voltage QRS Borderline ECG Confirmed by LUIZA CAREY ([id number]), make up editor NICKY GALLAGHER ([id number]) on 06/29/2017 4:32:02 PM Referred By: Confirmed By:LUIZA CAREY
--- NOTE | 2017-07-01 13:18 | EKG ---
Test Reason : ROUTINE Blood Pressure : / mmHG Vent. Rate : 097 BPM Atrial Rate : 097 BPM P-R Int : 136 ms QRS Dur : 066 ms QT Int : 370 ms P-R-T Axes : 060 000 033 degrees QTc Int : 469 ms Normal sinus rhythm Low voltage QRS Borderline ECG When compared with ECG of 21-JUN-2017 14:55, (Unconfirmed) No significant change was found Confirmed by DR. Fatoumata CORCORAN ([id number]) on 07/01/2017 1:18:10 PM Referred By: BARRY Confirmed By:DR. Fatoumata CORCORAN
== END 2017-06-25 11:06 | disposition home or self-care (01) | DRG 433 ==
LOC: ERS 14:21 → IMCU/EMU 17:50 → T4-A 06-23 14:27 → 2SE 06-23 19:51
PROVIDERS: ADMIT Internal Medicine; ATTEND Internal Medicine
PROC: 0W9G3ZZ Drainage of Peritoneal Cavity, Percutaneous Approach (ICD-10-PCS; 2017-06-21)
PROC: 0DJ08ZZ Inspection of Upper Intestinal Tract, Via Natural or Artificial Opening Endoscopic (ICD-10-PCS; principal; 2017-06-22)
DX: K70.31 Alcoholic cirrhosis of liver with ascites (principal); K76.6 Portal hypertension; I85.10 Secondary esophageal varices without bleeding; A04.5 Campylobacter enteritis; D62 Acute posthemorrhagic anemia; K31.89 Other diseases of stomach and duodenum; F10.11 Alcohol abuse, in remission; D63.8 Anemia in other chronic diseases classified elsewhere; K72.90 Hepatic failure, unspecified without coma; K21.9 Gastro-esophageal reflux disease without esophagitis; E87.5 Hyperkalemia; T50.0X5A Adverse effect of mineralocorticoids and their antagonists, initial encounter; T44.3X5A Adverse effect of other parasympatholytics [anticholinergics and antimuscarinics] and spasmolytics, initial encounter; Z66 Do not resuscitate
CPT/HCPCS: 36415; 36430; 71045; 74176; 80053; 81003; 82274; 82553; 83605; 83690; 83880; 84484; 85025; 85060; 85610; 85730; 86850; 86900; 86901; 87040; 87045; 87046; 87070; 87149; 87205; 87324; 87328; 87329; 87449; 87899; 89051; 93005; 93010; 96361; 96365; 96366; 96367; 96368; 96375; 96376; C9113; G8978-GP-CI; G8979-GP-CI; G8980-GP-CI; J0456; J0696; J2001; J2185; J2270; J2354; J2550; J2704; J3430; J3480; J7042; J7050; P9016; P9047; Q0162

== ENCOUNTER 2017-08-05 07:51 | Day surgery (SDC) | payer OTHER, SELFPAY ==
--- NOTE | 2017-08-05 10:12 | ULT ---
ULTRASOUND GUIDED PARACENTESIS: DATE: 08/05/17. HISTORY: A 61-year-old female with symptomatic ascites. FINDINGS: Informed consent for ultrasound-guided paracentesis obtained prior to the procedure. Preprocedural i maging demonstrates significant ascites throughout the abdomen/pelvis. The mid right abdomen was prepped and draped in normal sterile fashion and anesthetized with 1% buffe red Lidocaine. With direct sonographic guidance, a 5 Romansh Yueh catheter is advanced into the ascites and removal o f the stylette yields yellow fluid. Four liters were removed. The patient tolerated the procedure w ell. IMPRESSION: Successful ultrasound-guided paracentesis yielding 4 liters of yellow fluid. POS: [facility]
[2017-08-05 12:59] VITALS: BP 105/57; TEMP 97.4
[2017-08-05 13:11] VITALS: BMI 22.6
== END 2017-08-05 09:35 | disposition home or self-care (01) ==
LOC: ULT 07:51
PROVIDERS: ATTEND Internal Medicine
PROC: 0W9G3ZZ Drainage of Peritoneal Cavity, Percutaneous Approach (ICD-10-PCS; principal; 2017-08-05)
DX: K70.31 Alcoholic cirrhosis of liver with ascites (principal); K65.2 Spontaneous bacterial peritonitis; I85.00 Esophageal varices without bleeding; K72.90 Hepatic failure, unspecified without coma; R79.89 Other specified abnormal findings of blood chemistry
CPT/HCPCS: 49083

== ENCOUNTER 2017-08-15 14:08 | Inpatient (IN) | payer SELFPAY ==
[2017-08-15] MEDS ORDERED: Albuterol Sulfate 2.5 mg/0.5 ml Neb ONE (15:06)
[2017-08-15 15:17] LABS: Hemoglobin 9.8 g/dL (12.0-16.0); Mean Corpuscular Hemoglobin 34.8 pg (27.0-31.0); Mean Platelet Volume 8.4 fL (7.4-10.4); Platelet Count 78 thou/uL (130-400); RBC Distribution Width 16.3 % (11.5-14.5); Red Blood Cell (RBC) Count 2.82 mill/uL (4.20-5.40); White Blood Cell (WBC) Count 6.8 thou/uL (4.8-10.8)
[2017-08-15 15:34] LABS: ALT (SGPT) 51 U/L (8-55); AST (SGOT) 84 U/L (5-34); Albumin 2.6 g/dL (3.4-4.8); Alkaline Phosphatase 185 U/L (40-150); Anion Gap 12 mmol/L (10-20); Anisocytosis SLIGHT = 6-15 cells (100X) (0-5/hpf); BUN (Urea Nitrogen) 15 mg/dL (9.8-20.1); Band 1 % (5-11); Bilirubin, Total 3.4 mg/dL (0.2-1.2); CK (CPK) 79 U/L (29-168); Calc. Creatinine Clearance 0 mL/min (70-130); Calcium 8.5 mg/dL (7.8-10.44); Carbon Dioxide 20 mmol/L (23-31); Chloride 106 mmol/L (98-107); Eosinophils 1 % (0-10); Estimated GFR-MDRD 64; Globulin 3.8 g/dL (2.4-3.5); Glucose 109 mg/dL (80-115); Lymphocytes 8 % (21-51); MDiff Complete? YES; Monocytes 4 % (0-10); Neutrophil 86 % (42-75); PLT Morphology Comment Appears Decreased; Potassium 3.3 mmol/L (3.5-5.1); Protein, Total 6.4 g/dL (6.0-8.3); Sodium 135 mmol/L (136-145)
[2017-08-15 15:37] LABS: CKMB 3.4 ng/mL (0-6.6); Troponin I 0.025 ng/mL (< 0.028)
--- NOTE | 2017-08-15 15:46 | RAD ---
FRONTAL VIEW CHEST: Comparison: 06-21-17 Clinical history: Dyspnea, short of breath. FINDINGS: There is diffuse opacification of the right hemithorax. Patchy density is seen at the left upper lung zone. The cardiomediastinal silhouette is partially obscured by the degree of opacification in the r ight chest. No significant shift of the midline structures of the mediastinum. IMPRESSION: Diffuse opacification of right hemithorax favoring pleural fluid, although underlying parenchymal den sity including mass not excluded. 2. Patchy left apical opacity is present. 3. Recommend Pulmonary Medicine consultation for further care. POS: [facility]
[2017-08-15] MEDS ORDERED: cefTRIAXone\\ROCEPHIN 2 GM VIAL ONE (18:08)
[2017-08-15] MEDS ORDERED: Cefepime 2 GM in Sodium Chloride 0.9% 100 ML IVPB SCH (18:15)
[2017-08-15] MEDS ORDERED: Ondansetron ODT 4 MG TAB SL PRN (19:53)
[2017-08-15] MEDS ORDERED: Ondansetron HCl/PF 4 MG/2 ML Vial IVP PRN ×2 (19:53→21:30)
[2017-08-15] MEDS ORDERED: Acetaminophen 325 MG TAB PO PRN (19:53)
[2017-08-15 21:28] VITALS: BMI 22.6
[2017-08-15] MEDS ORDERED: hydrALAZINE 20 MG/ML VIAL SLOW IVP PRN (21:30)
[2017-08-15] MEDS ORDERED: cloNIDine 0.1 MG TAB PO PRN (21:30)
[2017-08-15] MEDS ORDERED: Acetaminophen 500 MG TAB PO PRN (21:30)
[2017-08-15] MEDS ORDERED: Ondansetron ODT 4 MG TAB PO PRN (21:30)
[2017-08-15] MEDS ORDERED: Furosemide 20 MG/2 ML VIAL SLOW IVP SCH (22:00)
[2017-08-15] MEDS ORDERED: Spironolactone 25 MG TAB PO SCH (22:00)
[2017-08-15] MEDS ORDERED: Potassium Chloride 20 MEQ TAB PO SCH (22:15)
[2017-08-15] MEDS: cefTRIAXone\\ROCEPHIN 2 GM in Sodium Chloride 0.9% 100 ML IVPB SCH (22:26)
[2017-08-16 04:44] LABS: ALT (SGPT) 50 U/L (8-55); AST (SGOT) 79 U/L (5-34); Albumin 2.5 g/dL (3.4-4.8); Alkaline Phosphatase 192 U/L (40-150); Anion Gap 12 mmol/L (10-20); BUN (Urea Nitrogen) 13 mg/dL (9.8-20.1); Bilirubin, Total 2.3 mg/dL (0.2-1.2); Calc. Creatinine Clearance 51 mL/min (70-130); Calcium 8.3 mg/dL (7.8-10.44); Carbon Dioxide 21 mmol/L (23-31); Chloride 106 mmol/L (98-107); Estimated GFR-MDRD 57; Globulin 3.7 g/dL (2.4-3.5); Glucose 91 mg/dL (80-115); Potassium 3.6 mmol/L (3.5-5.1); Protein, Total 6.2 g/dL (6.0-8.3); Sodium 135 mmol/L (136-145)
[2017-08-16 05:09] LABS: INR-International Normal Ratio 1.5; Prothrombin Time 18.4 SEC (12.0-14.7)
[2017-08-16 05:27] LABS: Band 2 % (5-11); Eosinophils 1 % (0-10); Hemoglobin 9.8 g/dL (12.0-16.0); Lymphocytes 6 % (21-51); MDiff Complete? YES; Mean Corpuscular HGB CONC 33.4 g/dL (32.0-36.0); Mean Corpuscular Hemoglobin 35.6 pg (27.0-31.0); Mean Platelet Volume 8.3 fL (7.4-10.4); Monocytes 11 % (0-10); Neutrophil 80 % (42-75); PLT Morphology Comment Appears Decreased; Platelet Count 72 thou/uL (130-400); RBC Distribution Width 16.3 % (11.5-14.5); Red Blood Cell (RBC) Count 2.75 mill/uL (4.20-5.40); White Blood Cell (WBC) Count 7.4 thou/uL (4.8-10.8)
--- NOTE | 2017-08-16 05:55 | HP ---
DATE OF ADMISSION: 08/15/2017 PRIMARY CARE PROVIDER: Demetris Piña M.D. PRIMARY FUEL BUYER: Stephen Gregorio M.D. CHIEF COMPLAINT: Shortness of breath. HISTORY OF PRESENT ILLNESS: This is a 61-year-old female with significant history of end-s tage liver disease with cirrhosis diagnosed in late 2016. The patient states she has had approximate ly 4-day history of increasing shortness of breath with nonproductive cough. The patient states she has some sharp pains on her chest, but is able to sleep on her right side with less shortness of lisa th. The patient does complain of pain in the back on both sides now on the left side more than the r ight. The patient initially rated the pain 10/10, currently 3/10. The patient states she has diffic ulty walking and ambulating in her home due to increased shortness of breath. The patient apparently has a 20-year smoking history, quitting in 10/2016. The patient states she has noticed increasing s welling of her abdomen with a prior history of ascites status post paracentesis x2 in 2017. The leigh ent states her most recent paracentesis with approximately a week and half prior to this evaluation. The patient denied any specific documented fever, chills, trauma, hemoptysis, change to bowel habits or dysuria. The patient denied taking any specific home remedies for relief. The patient does stat e that she is compliant with her chronic medications to include Lasix, lactulose, and spironolactone. The patient denies current alcohol use, stating she quit alcohol in 2016. In the emergency room, t he patient underwent general evaluation including chest imaging showing opacification of the right he mithorax. The patient was also noted with large volume ascites. The patient received vancomycin, ce fepime, and DuoNeb therapy. The patient was transferred to the medical floor for further evaluation. PAST MEDICAL HISTORY: 1. Hepatic cirrhosis. 2. Ascites status post paracentesis x2. 3. History of alcohol abuse, quitting in 2016. 4. Spontaneous bacterial peritonitis. 5. Chronic macrocytic anemia. 6. History of tobacco abuse, none currently. 7. Remote miscarriage in . PAST SURGICAL HISTORY: 1. Status post paracentesis x2. 2. Status post left breast biopsy. 3. Status post dilation and curettage. CURRENT MEDICATIONS: 1. Folic acid 1 mg p.o. daily. 2. Lasix 40 mg half a tab p.o. daily. 3. Lactulose 10 grams p.o. b.i.d. 4. Multivitamin 1 tab p.o. daily. 5. Spironolactone 50 mg p.o. daily. ALLERGIES: SULFA. FAMILY HISTORY: History of lung cancer in her father. Uncle with esophageal cancer. An uncle with colon cancer. Multiple family members with diabetes mellitus. SOCIAL HISTORY: The patient resides in [place], [place]. 8 years. 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 Lives independently with 2 pets in a recreational vehicle. No current alco hol, tobacco, or illicit drug use. Formerly smoked for over 20 years, stopping in 10/2016. No alcoh ol use since 01/2017. REVIEW OF SYSTEMS: The following complete review of systems was negative, unless otherwise mentioned in the HPI or below: Constitutional: Weight loss or gain, ability to conduct usual activities. Sk in: Rash, itching. Eyes: Double vision, pain. ENT/Mouth: Nose bleeding, neck stiffness, pain, ten derness. Cardiovascular: Palpitations, dyspnea on exertion, orthopnea. Respiratory: Shortness of breath, wheezing, cough, hemoptysis, fever or night sweats. Gastrointestinal: Poor appetite, abdomi nal pain, heartburn, nausea, vomiting, constipation, or diarrhea. Genitourinary: Urgency, frequency , dysuria, nocturia. Musculoskeletal: Pain, swelling. Neurologic/Psychiatric: Anxiety, depression . Allergy/Immunologic: Skin rash, bleeding tendency. Otherwise negative except as stated per HPI. PHYSICAL EXAMINATION: VITAL SIGNS: Currently, blood pressure 129/55, pulse 105, respiratory rate 22, temperature 97.5 degr ees Fahrenheit, O2 saturation 97% on room air. GENERAL APPEARANCE: This is a 61-year-old female, pale, frail, in mild to moderate distres s. HEENT: Pupils are equal, round, and reactive to light and accommodation. Extraocular muscles are in tact. Bilateral scleral icterus. No conjunctival injection. Nares patent. OP is clear. NECK: Supple, no cervical adenopathy, no thyromegaly, no carotid bruits, no JVD appreciated. Cervic al spine with full active and passive range of motion. No meningeal signs appreciated. CHEST: Left hemithorax with clear lung kohler. Right hemithorax with dullness to percussion. CARDIOVASCULAR: S1, S2, without murmur, rub or gallop. Tachycardia noted. ABDOMEN: Protuberant with fluid wave. Landmarks are difficult to palpate due to patient's body habi tus. No tenderness to palpation. No rebound or guarding. EXTREMITIES: Warm and dry with fair turgor. No clubbing, cyanosis or asymmetric edema appreciated. Pulses palpable distally at the dorsalis pedis, posterior tibial, and popliteal arteries bilaterally . Capillary refill less than 2 seconds. NEUROLOGIC: Cranial nerves II-XII are grossly intact. No focal or lateralizing signs appreciated. SKIN: Shows generalized jaundice. Scant spider hemangioma on the abdomen. PERTINENT LABORATORY AND X-RAY FINDINGS: Sodium 135, potassium 3.3, chloride 106, CO2 of 20, BUN 15, creatinine 0.89, estimated GFR of 64, glucose 109, calcium 8.5, total bilirubin 3.4, AST 84, ALT 51, alkaline phosphatase 185, total CK of 79, troponin I 0.025, albumin 2.6. CBC showed a white blood c ell count 6.8, hemoglobin 9.8, hematocrit 30, MCV 105, platelet count 78 with 86% neutrophils, 1% ban ds. Portable chest x-ray dated 08/15/2017 by my review shows diffuse opacification of the right raghav thorax consistent with pleural fluid. EKG dated 08/15/2017 by my interpretation shows sinus rhythm w ith heart rates in the 80s. Normal R-wave progression noted in precordial leads. Normal axis. No a cute ST-T wave changes appreciated. ASSESSMENT AND PLAN: 1. Acute dyspnea. Secondarily to extensive right hemithorax pleural effusion. We will continue oxy gen supplementation to maintain O2 saturation greater than 90%. We will proceed with pulmonology con sultation for thoracentesis to remove large volume of pleural effusion. DuoNebs q.4 hours p.r.n. 2. Right hemithorax pleural effusion. Consult Pulmonology Service as stated in #1. Assess pleural effusion for a cytology and rule out infectious process. 3. Hepatic cirrhosis with ascites. We will consult GI service in the a.m. for repeat paracentesis. Continue Rocephin 2 g IV q.24 hours. Lasix 20 mg IV b.i.d. Continue spironolactone 50 mg daily. L actulose 10 grams p.o. b.i.d. Current MELD score is 18 with 6% three-month mortality estimation. Ch ild-Pérez score of 11 class C. 4. Chronic macrocytic anemia. Secondarily to hepatic cirrhosis. No current evidence to suggest acu te blood loss. Check stool guaiac x1. Serial CBC. Continue folic acid 1 mg daily. Check B12 level in the a.m. 5. Hypokalemia. Potassium chloride 40 mEq p.o. x1 now, then b.i.d. Repeat potassium level in the a .m. 6. Prophylaxis. Sequential compression devices while in bed. Pepcid 20 mg p.o. b.i.d. Case manage ment consult. 7. Code status is FULL. Surrogate medical decision maker is patient's sister.
[2017-08-16] MEDS ORDERED: Furosemide 20 MG/2 ML VIAL SLOW IVP SCH (06:00)
[2017-08-16] MEDS ORDERED: Lidocaine 1% PF 5 ML VIAL ONE (07:31)
[2017-08-16] MEDS ORDERED: Sodium Bicarbonate 2.5 MEQ/5 ML VIAL ONE (07:31)
[2017-08-16 07:45] LABS: Folate (Folic Acid) 13.2 ng/mL (7.0-31.4)
[2017-08-16] MEDS ORDERED: Spironolactone 25 MG TAB PO SCH (09:00)
[2017-08-16] MEDS: Potassium Chloride 20 MEQ TAB PO SCH ×2 (09:22→17:36)
[2017-08-16] MEDS: Multivit, Therapeutic 1 TAB PO SCH (09:22)
[2017-08-16] MEDS: Famotidine 20 MG TAB PO SCH ×2 (09:22→21:30)
[2017-08-16] MEDS: Folic Acid 1 MG TAB PO SCH (09:23)
--- NOTE | 2017-08-16 10:11 | ULT ---
ULTRASOUND GUIDED PARACENTESIS: COMPARISON: 08/05/17. HISTORY: Ascites. FINDINGS: Technically successful ultrasound-guided paracentesis. A total of 1500 mL of yellow-color ascites wa s aspirated. There are no immediate or postprocedure complications. Postprocedure images demonstrat e ascites to still be present. TECHNIQUE: Consent was obtained to perform an ultrasound-guided paracentesis. The patient's abdomen was evaluat ed. The right lower quadrant was deemed appropriate. The skin was prepped and draped in sterile fas hion. 1% Lidocaine, buffered with sodium bicarbonate, was used for local anesthesia. Under ultrasou nd guidance, a 5 Romanian 7 cm Tadcasteh catheter was advanced into the right lower quadrant. A small amoun t of ascites was aspirated. The catheter then adhered to bowel loops. Despite attempts at repositio jenny the catheter, additional fluid could not be aspirated. Therefore, the patient was re-prepped an d draped in a sterile fashion. A 2nd area was anesthetized with 1% Lidocaine, buffered with sodium b icarbonate. A 2nd needle was placed into the peritoneal space. A total of 1500 mL of yellow-colored ascites was aspirated. The patient tolerated the procedure. No immediate or postprocedure complica tions. IMPRESSION: Successful ultrasound-guided paracentesis. POS: [facility]
[2017-08-16 12:48] LABS: BF Color Yellow; Body Fluid Source Ascites Body Fluid; Clarity Hazy (Clear); Tube # EDTA
[2017-08-16 12:58] LABS: BF RBC Count - Manual 75 /cumm; BF WBC/Nonhematics Ct. - Manua 33 /cumm
--- NOTE | 2017-08-16 13:29 | CON ---
DATE OF CONSULTATION: 08/16/2017 CHIEF COMPLAINT: Shortness of breath and abdominal distention. HISTORY OF PRESENT ILLNESS: Ms. Pichardo is a 61-year-old woman with alcoholic cirrhosis who was admit [place] through the emergency room last night with shortness of breath. X-ray showed significant right p leural effusion. She has had problems with ascites and possible prior SBP. As an outpatient her diu retics have been adjusted up with improvement; however, then she developed renal insufficiency and th e diuretics were decreased again. Her creatinine did increase up to 2.35 when she was on furosemide 40 mg twice daily and spironolactone 50 mg 3 times daily. Her creatinine more recently improved to 1 and the plan was to increase her spironolactone again when she was seen in the clinic on 08/15/2017. She underwent paracentesis this morning with 1500 mL removed and she feels better. She did have di ffuse pressure-like abdominal discomfort prior to that. She had no chest pain. She has had no const ipation, diarrhea, blood in the stool. Her mental status has been clear lately. She has a prior his tory of hepatic encephalopathy. PAST MEDICAL HISTORY: Alcoholic cirrhosis, ascites, hepatic encephalopathy, alcohol abuse. She quit alcohol 01/2017. SBP. PAST SURGICAL HISTORY: Breast biopsy and endoscopy, paracentesis, dilation and curretage. ALLERGIES: SULFA. MEDICATIONS: Prior to admission, furosemide 20 mg daily, spironolactone and recently she has been on 25 mg daily and the plan was to increase to 50 mg daily when she was seen in the clinic yesterday. She has been following with Dr. Gregorio and TUSHAR Swan. REVIEW OF SYSTEMS: Negative x10 systems reviewed except as stated in the history of present illness. PHYSICAL EXAMINATION: VITAL SIGNS: Temperature 97.9, pulse 98, blood pressure 102/58. GENERAL: She is in no acute distress. She is alert and oriented x3. HEENT: Eyes have slight scleral icterus. Oropharynx is clear, without lesions. NECK: No cervical or supraclavicular lymphadenopathy. LUNGS: Clear to auscultation on the left, some decreased breath sounds on the right. HEART: Regular rate and rhythm. ABDOMEN: Soft. Currently, she did have a paracentesis this morning. She is nontender, nondistended now. EXTREMITIES: No lower extremity edema. NEURO: No asterixis. LABORATORY: Sodium 135, potassium 3.6, CO2 106, BUN is 13. Creatinine 0.99, bilirubin 2.3, AST 79, ALT 50, alkaline phosphatase 192, albumin 2.5. INR 1.5. IMPRESSION: 1. Alcoholic cirrhosis. Her last drink was 01/2017. She is decompensated with ascites and prior hep atic encephalopathy. Current MELD score is 14. However, she has had a MELD score previously as high as 26. Liver transplant referral has been unable to be performed as of yet due to lack of insurance and funding. 2. Hepato hydrothorax. 3. Ascites. She has remained on a low salt diet. Her diuretics had to be decreased due to renal fa ilure. Her creatinine has returned to normal and we will try to increase these further. We will con tinue the furosemide at 20 mg and increase the spironolactone to 50 mg twice daily. She is status po st paracentesis today. Cell count with differential has been ordered, but not yet resulted. She is currently on ceftriaxone. If the cell count comes back normal, then the ceftriaxone can likely be di scontinued. 4. Continue lactulose. It should be titrated to around 3 soft bowel movements per day. She is not on Xifaxan at this point due to lack of funding. 5. Increase the spironolactone to 50 mg twice daily. 6. Continue furosemide 20 mg daily with close monitoring of the renal function. Again, she did have acute renal failure recently related to the diuretics. 7. Pulmonology is also consulted to evaluate the hepato hydrothorax.
[2017-08-16 14:01] LABS: BF Segmented Neutrophils 7 %; Cell Count Non Hematic 77 %; Lymphocytes 16 %
--- NOTE | 2017-08-16 14:32 | CT ---
CHEST CT WITHOUT CONTRAST: HISTORY: Right-sided pleural effusion. COMPARISON: None. TECHNIQUE: Chest CT is performed without contrast. Coronal reformatted images were submitted for interpretation . FINDINGS: There are ground-glass opacities in the left upper lobe which may be due to atypical infection/infilt rate. Additional patchy opacities are noted in the lingula. Adequate aeration of the left lower lob e. There is complete opacification of the right lung. Consolidation of the right lung likely due to atelectasis secondary to a large right-sided pleural effusion. Trachea and central bronchi are hilario nt. Cirrhotic changes of the liver are noted. Ascites is identified. No lytic or blastic lesions in the osseous structures. Limited evaluation of the mediastinum by the lack of IV contrast. No mediastinal mass, lymphadenopat hy, or hematoma. No significant pericardial fluid. There are coronary artery calcifications. Minim al atherosclerosis of a nonaneurysmal aorta. IMPRESSION: 1. Large right-sided pleural effusion opacifying the entire right hemithorax. 2. Atypical infection in the left lung is suspected as described above. POS: [facility]
--- NOTE | 2017-08-16 16:52 | PDOC.PN ---
- Subjective Encounter Start Date: 08/16/17 Encounter Start Time: 15:30 Subjective: f/u for dyspnea, pleural effusion and ascite in context of hepatic -: cirrhosis. s/p paracentesis this am. Awaiting thoracentesis. No fever. -: Still SOB. Abd feels better. - Objective Resuscitation Status: Resuscitation Status FULL:Full Resuscitation MAR Reviewed: Yes Vital Signs & Weight: Vital Signs (12 hours) Temp Pulse Resp BP Pulse Ox 08/16/17 16:50 99.0 F 101 H 18 126/74 91 L 08/16/17 13:48 92 L 08/16/17 13:13 95 16 92 L 08/16/17 07:45 97.9 F 98 28 H 102/58 L 91 L 08/16/17 07:28 97.8 F 96 24 H 110/62 94 L 08/16/17 07:26 97.8 F 96 24 H 94 L 08/16/17 06:28 95 16 92 L Weight Weight 120 lb I&O: 08/15/17 08/16/17 08/17/17 06:59 06:59 06:59 Intake Total 780 Balance 780 Result Diagrams: 08/16/17 03:48 08/16/17 03:48 Additional Labs: Microbiology 08/16/17 07:30 Stool - Loose Stool Occult Blood (SHEILA) - Final 08/16/17 08:25 Ascites Fluid Body Fluid Culture - Preliminary Radiology Reviewed by me: Yes (CT chest - large volume effusion of R hemithorax) Phys Exam - Physical Examination pale, ill-appearing, awake and responsive + scleral icterus HEENT: PERRLA, oral pharynx no lesions Neck: no nodes, no JVD, supple, full ROM absent R breath sounds Respiratory: no wheezing, no rales, no rhonchi S1, S2 Cardiovascular: RRR, no significant murmur, no rub, gallop distended with fluid wave Gastrointestinal: soft, non-tender, positive bowel sounds Musculoskeletal: no edema, pulses present Neurological: non-focal, normal sensation, moves all 4 limbs Psychiatric: normal affect, A&O x 3 Skin: no rash, normal turgor, cap refill <2 seconds Dx/Plan (1) Pleural effusion, right Code(s): J90 - PLEURAL EFFUSION, NOT ELSEWHERE CLASSIFIED Status: Acute Comment: Opacification of R hemithorax from effusion, consulted Pulmonology for thoracentesis, O2 prn, Duonebs prn (2) Alcoholic cirrhosis of liver with ascites Code(s): K70.31 - ALCOHOLIC CIRRHOSIS OF LIVER WITH ASCITES Status: Chronic Comment: Recurrent ascites in context ESLD, s/p paracentesis with 1.5L removed today, Lasix 20mg IV BID, GI consult (3) Dyspnea Code(s): R06.00 - DYSPNEA, UNSPECIFIED Status: Acute Comment: Secondary to R pleural effusion, anticipate improvement with thoracentesis (4) Macrocytic anemia Code(s): D53.9 - NUTRITIONAL ANEMIA, UNSPECIFIED Status: Chronic Comment: Continue Folate replacement, serial H/H monitoring (5) Hypokalemia Code(s): E87.6 - HYPOKALEMIA Status: Acute Comment: KCL replacement, serial K+ monitoring, improved - Plan continue antibiotics, social welfare administrator, respiratory therapy, DVT proph w/SCDs Continue supportive mgmt -: Lasix 20mg IV BID -: Lactulose BID -: Continue Rocephin 2gm IV daily -: AM lab: CMP, CBC * .
[2017-08-16] MEDS: Benzonatate 100 MG CAP PO PRN (17:36)
--- NOTE | 2017-08-16 19:05 | CON ---
DATE OF CONSULTATION: 08/16/2017 Marii Pichardo is a pleasant 61-year-old female with a diagnosis of cirrhosis secondary to heavy alcohol use. She has quit drinking. She presents with 4-5 days of cough and shortness of breath. Chest radiograph showed opacification of her right hemithorax. I was consulted. PAST MEDICAL HISTORY: 1. Remarkable for cirrhosis. She underwent a paracentesis this morning. 2. History of hepatic encephalopathy. 3. History of spontaneous bacterial peritonitis. 4. History of breast biopsy in the past. 5. History of D&C. SOCIAL HISTORY: She is a nonsmoker and nondrinker now. FAMILY HISTORY: Non contributory ALLERGIES: She has no drug allergies. MEDICATIONS: Prior to admission, she was on Lasix 20 mg a day, Aldactone 25 mg a day. REVIEW OF SYSTEMS: 10 point system otherwise negative. She denies having hemoptysis or fever. PHYSICAL EXAMINATION: VITAL SIGNS: She is afebrile. Oximetry is 91-92 on room air, pulse is 98, respiratory rate is in the 20s, blood pressure 102/58. GENERAL: She is in no distress. HEENT: Pupils are equal. Sclerae are anicteric. NECK: Supple. She has absent breath sounds on the right with dullness to percussion. HEART: Regular rhythm. ABDOMEN: Soft, nontender. EXTREMITIES: Without clubbing, cyanosis, or edema. NEUROLOGIC: Grossly nonfocal. Chest radiographs were reviewed, suggests that there may be actually some volume loss on the right with the trachea being shifted slightly to right. Before we consider thoracentesis, I would recommend a CT of her chest to better define her chest abnormalities. This can be done without contrast. This most likely, if just an effusion, would be a hepatic hydrothorax. I will be happy to follow with the other physicians caring for Ms. Pichardo. We will make further recommendations after CT is reviewed. This is a 50 minute consult with greater than 50% of the time spent on the unit with coordination of care. [place]
[2017-08-16] MEDS: cefTRIAXone\\ROCEPHIN 2 GM in Sodium Chloride 0.9% 100 ML IVPB SCH (21:31)
[2017-08-16] MEDS: Spironolactone 100 MG TAB PO SCH (21:31)
[2017-08-17] MEDS: Famotidine 20 MG TAB PO SCH ×2 (08:23→20:30)
[2017-08-17] MEDS: Multivit, Therapeutic 1 TAB PO SCH (08:23)
[2017-08-17] MEDS: Folic Acid 1 MG TAB PO SCH (08:23)
[2017-08-17] MEDS: Potassium Chloride 20 MEQ TAB PO SCH ×2 (08:23→17:54)
[2017-08-17] MEDS: Spironolactone 100 MG TAB PO SCH ×2 (08:24→20:31)
[2017-08-17] MEDS ORDERED: Furosemide 20 MG TAB PO SCH (09:00)
[2017-08-17] MEDS: Benzonatate 100 MG CAP PO PRN ×2 (09:26→20:34)
--- NOTE | 2017-08-17 12:15 | EKG ---
Test Reason : Blood Pressure : / mmHG Vent. Rate : 088 BPM Atrial Rate : 088 BPM P-R Int : 000 ms QRS Dur : 062 ms QT Int : 342 ms P-R-T Axes : 000 -04 018 degrees QTc Int : 413 ms Accelerated Junctional rhythm Nonspecific T wave abnormality Abnormal ECG Confirmed by ANTOINE DESHPANDE, DAVID ([id number]), news copy editor NICKY GALLAGHER ([id number]) on 08/17/2017 12:15:42 PM Referred By: Confirmed By:DAVID SCHULTZ MD
--- NOTE | 2017-08-17 13:29 | PRG ---
DATE OF SERVICE: 08/17/2017 SUBJECTIVE: Ms. Pichardo gets short of breath with ambulation. She has no abdominal pain, nausea, vom iting. OBJECTIVE: VITAL SIGNS: Temperature 97.7, pulse 94, blood pressure 111/67. GENERAL: She is in no acute distress. She is awake and alert. CHEST: Decreased breath sounds on the right. HEART: Regular rate and rhythm. ABDOMEN: Soft, mildly distended. Bowel sounds are present. EXTREMITIES: No lower extremity edema. IMPRESSION: 1. Alcoholic cirrhosis, off alcohol since 01/2017, decompensated with ascites. 2. Hepato-hydrothorax. 3. History of hepatic encephalopathy. RECOMMENDATIONS: 1. Primary treatment now is salt restriction and trying to maximize her diuretics without worsening her renal function. She has been on higher-dose diuretics previously, but developed acute renal fail ure with that. We have increased her spironolactone to 50 mg twice daily. I will try increasing the furosemide to 20 mg twice daily as well. 2. She is planned for thoracentesis today. 3. Salt-restricted diet. 4. Continue lactulose.
--- NOTE | 2017-08-17 13:30 | PDOC.PN ---
- Subjective Encounter Start Date: 08/17/17 Encounter Start Time: 13:25 Subjective: f/u for dyspnea and large R pleural effusion in context of ETOH cirrhosis -: Awaiting thoracentesis. - Objective Resuscitation Status: Resuscitation Status FULL:Full Resuscitation MAR Reviewed: Yes Vital Signs & Weight: Vital Signs (12 hours) Temp Pulse Resp BP Pulse Ox 08/17/17 13:03 94 16 92 L 08/17/17 11:21 97.7 F 94 20 111/67 92 L 08/17/17 09:11 97.8 F 105 H 20 108/68 95 08/17/17 08:15 97.8 F 105 H 20 95 08/17/17 06:36 96 16 95 08/17/17 04:49 98.2 F 97 18 107/69 91 L Weight Weight 120 lb I&O: 08/16/17 08/17/17 08/18/17 06:59 06:59 06:59 Intake Total 780 990 Balance 780 990 Result Diagrams: 08/16/17 03:48 08/16/17 03:48 Additional Labs: Microbiology 08/16/17 07:30 Stool - Loose Stool Occult Blood (SHEILA) - Final 08/16/17 08:25 Ascites Fluid Body Fluid Culture - Preliminary Laboratory Tests 08/15/17 08/16/17 08/16/17 15:01 03:48 03:48 AST 84 H 79 H ALT 51 50 Alkaline Phosphatase 185 H 192 H Vitamin B12 1920 H Folate 13.20 Phys Exam - Physical Examination pale, ill-appearing, alert + scleral icterus HEENT: PERRLA, oral pharynx no lesions Neck: no nodes, no JVD, supple, full ROM absent sounds on R Respiratory: no wheezing, no rhonchi S1, S2 Cardiovascular: RRR, no significant murmur, no rub, gallop decreased distention Gastrointestinal: soft, non-tender, positive bowel sounds Musculoskeletal: no edema, pulses present Neurological: non-focal, normal sensation, moves all 4 limbs Psychiatric: normal affect, A&O x 3 Skin: no rash, normal turgor, cap refill <2 seconds Dx/Plan (1) Pleural effusion, right Code(s): J90 - PLEURAL EFFUSION, NOT ELSEWHERE CLASSIFIED Status: Acute Comment: Opacification of R hemithorax from effusion, consulted Pulmonology for thoracentesis, O2 prn, Duonebs prn (2) Alcoholic cirrhosis of liver with ascites Code(s): K70.31 - ALCOHOLIC CIRRHOSIS OF LIVER WITH ASCITES Status: Chronic Comment: Recurrent ascites in context ESLD, s/p paracentesis with 1.5L removed today, Lasix 20mg po BID, GI consult (3) Dyspnea Code(s): R06.00 - DYSPNEA, UNSPECIFIED Status: Acute Comment: Secondary to R pleural effusion, anticipate improvement with thoracentesis (4) Macrocytic anemia Code(s): D53.9 - NUTRITIONAL ANEMIA, UNSPECIFIED Status: Chronic Comment: Continue Folate replacement, serial H/H monitoring (5) Hypokalemia Code(s): E87.6 - HYPOKALEMIA Status: Acute Comment: KCL replacement, serial K+ monitoring, improved - Plan continue antibiotics, health and social care teacher, out of bed/ambulate, DVT proph w/SCDs Stable currently -: Awaiting thoracentesis -: Continue Lasix 20mg po BID -: Continue MVI, Folate -: Continue Spironolactone 50mg daily * AM lab: BMP
[2017-08-17] MEDS ORDERED: Lidocaine 1% w/Epinephrine 1:100K 20 ML VIAL ONE (14:07)
[2017-08-17] MEDS ORDERED: Lidocaine 1% (PF) 30 ML VIAL ONE (14:07)
[2017-08-17] MEDS: Furosemide 20 MG TAB PO SCH (15:10)
[2017-08-17] MEDS: cefTRIAXone\\ROCEPHIN 2 GM in Sodium Chloride 0.9% 100 ML IVPB SCH (21:15)
--- NOTE | 2017-08-17 21:48 | OP ---
08/17/2017 PROCEDURE: Thoracentesis. GRINDER LAP: Art Mahmood M.D. INDICATION: Large right effusion. DESCRIPTION OF PROCEDURE: The patient had signed all the consent forms. Risks of bleeding, infection, lung collapse were explained to the patient. Right posterior hemithorax was cleansed with chlorhexidine. A 5 mL of 1% lidocaine was used to anesthetize the skin and the pleura. A small incision was made with a #11 blade. An 8-Vincentian Ysbo-P-[id number] catheter was inserted in the pleural space. Clear yellow pleural fluid was evacuated to total of 1 liter. The pleural fluid protein was less than 1, LDH 41, glucose was 131. This is clearly a transudative related to her ascites. There is no indication for another thoracentesis or chest tube. MTDD
[2017-08-18 05:38] LABS: Anion Gap 11 mmol/L (10-20); BUN (Urea Nitrogen) 11 mg/dL (9.8-20.1); Calc. Creatinine Clearance 60 mL/min (70-130); Calcium 7.7 mg/dL (7.8-10.44); Carbon Dioxide 18 mmol/L (23-31); Chloride 106 mmol/L (98-107); Estimated GFR-MDRD 69; Glucose 93 mg/dL (80-115); Potassium 5.2 mmol/L (3.5-5.1); Sodium 130 mmol/L (136-145)
[2017-08-18] MEDS: Multivit, Therapeutic 1 TAB PO SCH (08:42)
[2017-08-18] MEDS: Famotidine 20 MG TAB PO SCH (08:42)
[2017-08-18 08:43] VITALS: TEMP 97.8
[2017-08-18] MEDS: Spironolactone 100 MG TAB PO SCH (08:43)
[2017-08-18] MEDS: Folic Acid 1 MG TAB PO SCH (08:43)
[2017-08-18] MEDS: Furosemide 20 MG TAB PO SCH ×3 (08:43→13:11)
[2017-08-18] MEDS: Potassium Chloride 20 MEQ TAB PO SCH (08:44)
[2017-08-18 12:31] VITALS: BP 102/66
[2017-08-18] MEDS: Benzonatate 100 MG CAP PO PRN (13:11)
--- NOTE | 2017-08-18 13:53 | PRG ---
DATE OF SERVICE: 08/18/2017 SUBJECTIVE: She is breathing much better after thoracentesis. She has no acute complaints otherwise this morning. PHYSICAL EXAMINATION: VITAL SIGNS: Temperature 97.8, pulse 95, blood pressure 102/66, oxygen saturation 93%. GENERAL: She is in no acute distress, awake and alert. LUNGS: Clear to auscultation bilaterally. HEART: Regular rate and rhythm. ABDOMEN: Mildly distended. Bowel sounds are present. Her abdomen is soft and tender. EXTREMITIES: No lower extremity edema. IMPRESSION: 1. Hepato-hydrothorax. 2. Alcoholic cirrhosis, off alcohol since 01/2017. Decompensated with ascites. 3. History of hepatic encephalopathy. Currently, she has normal mental status. RECOMMENDATIONS: 1. Dietary salt restriction. 2. Her diuretics have been adjusted to furosemide 20 mg twice daily and spironolactone 50 mg twice d aily. Her creatinine remains normal. She will follow up in the office in a week or two to further a djust her diuretics. 3. She is advised to weigh herself daily. 4. Continue lactulose. 5. Follow up in the office with Dr. Gregorio, the GI Physician Fitness Teacher, in a week or two.
--- NOTE | 2017-08-18 14:48 | DIS ---
DATE OF ADMISSION: 08/15/2017 DATE OF DISCHARGE: 08/18/2017 DISCHARGE DIAGNOSES. 1. Right pleural effusion secondary to hepatic cirrhosis. 2. Status post right hemithorax thoracentesis on 08/17/2017. 3. Alcoholic cirrhosis with ascites, status post paracentesis. 4. Acute dyspnea secondarily to #1, improved. 5. Chronic macrocytic anemia. 6. Hypokalemia, resolved. 7. Chronic hyponatremia. CONSULTATIONS: Dr. Mahmood with Pulmonology Service. Dr. Santos with GI Service. PERTINENT LAB AND X-RAY FINDINGS: Sodium ranged between 130-135. Potassium ranged between 3.3-5.2. Creatinine ranged between 0.84-0.99. AST ranged between 79-84, ALT ranged between 50-51, total bili newby ranged between 2.3-3.4. Vitamin B12 level 1920. Folate level 13.2. CBC showed a hemoglobin o f 9.8, hematocrit 29, MCV 106, platelet count 72,000. PT 18.4, INR 1.5, PTT 34.0. Stool Hemoccult d ated 08/16/2017 negative x1. Ascites fluid culture dated 08/16/2017 showed no growth at 48 hours. P leural fluid culture dated 08/17/2017 showed no growth at 12 hours. Portable chest x-ray dated 08/15 showed diffuse opacification of the right hemithorax concerning for pleural fluid. CT of the c hest without contrast dated 08/16/2017 showed large right-sided pleural effusion opacifying the entir e right hemithorax with associated atelectasis and consolidation. HOSPITAL COURSE: The patient was initially admitted to the medical floor after presenting with short ness of breath in the context of known hepatic cirrhosis with abdominal ascites. Portable chest x-ra y imaging revealed opacification of the entire right hemithorax concerning for a large pleural effusi on. The patient underwent paracentesis by ultrasound guidance with approximately 1-1/2 liters remove d. The patient also was evaluated by the Pulmonology Service undergoing thoracentesis of the right h emithorax with approximately 1 liter removed from the right chest. The patient symptomatically impro chon with volume management and was titrated on Lasix and spironolactone for long-term volume control. The patient was tolerating oxygenation with room air during the hospital course with O2 saturations ranging in the 90 to mid 90% range throughout the hospital course. Overall, the patient remained cl inically stable, tolerating regular oral intake, ambulating without assistance or difficulty and void ing appropriately. I have examined the patient at the time of discharge and discussed pertinent follow up instructions, at which point patient verbalized understanding and agreement. The patient is stable and ready for d ischarge on 08/18/2017. DISCHARGE MEDICATIONS: 1. Folic acid 1 mg p.o. daily. 2. Lasix 20 mg p.o. b.i.d. 3. Lactulose 10 grams p.o. b.i.d. 4. Multivitamin 1 tab p.o. daily. 5. K-Dur 20 mEq p.o. daily. 6. Aldactone 50 mg p.o. b.i.d. FOLLOWUP: Patient will follow up with her primary care provider, Dr. Demetris Piña within 7 days of dis charge. The patient will follow up with Dr. Stephen Gregorio with GI Service and to call his office for ap pointment time and date. CONDITION ON DISCHARGE: Fair. ACTIVITY: ad vaishali. DIET: Heart healthy. CODE STATUS: FULL. DISPOSITION: Home on 08/18/2017.
== END 2017-08-18 13:43 | disposition home or self-care (01) | DRG 433 ==
LOC: ERS 14:08 → T4-A 17:50
PROVIDERS: ADMIT Family Medicine; ATTEND Family Medicine
PROC: 0W993ZZ Drainage of Right Pleural Cavity, Percutaneous Approach (ICD-10-PCS; principal; 2017-08-17)
DX: K70.31 Alcoholic cirrhosis of liver with ascites (principal); J90 Pleural effusion, not elsewhere classified; J94.8 Other specified pleural conditions; E87.1 Hypo-osmolality and hyponatremia; J98.11 Atelectasis; K72.90 Hepatic failure, unspecified without coma; D53.9 Nutritional anemia, unspecified; E87.6 Hypokalemia; K21.9 Gastro-esophageal reflux disease without esophagitis; E78.5 Hyperlipidemia, unspecified; Z87.891 Personal history of nicotine dependence; D69.6 Thrombocytopenia, unspecified
CPT/HCPCS: 36415; 49083; 71045; 71250; 80048; 80053; 82150; 82274; 82550; 82553; 82607; 82746; 82945; 83615; 84157; 84484; 85007; 85025; 85027; 85060; 85610; 85730; 87070; 87205; 89051; 93005; 94640; 94644; 94760; 96365; 96367; J0692; J0696; J1940; J2001; J3370; J7050; J7611; J7620

== ENCOUNTER 2017-08-30 09:09 | Inpatient (IN) | payer OTHER, SELFPAY ==
[2017-08-30 10:01] LABS: #Basophils 0.1 thou/uL (0.0-0.2); #Eosinphils 0.1 thou/uL (0.0-0.7); #Lymphocytes 0.8 thou/uL (1.20-3.40); #Monocytes 1.1 thou/uL (0.11-0.59); #Neutrophils 5.2 thou/uL (1.40-6.50); %Basophils 0.9 % (0.0-1.0); %Lymphocytes 10.9 % (21.0-51.0); %Monocytes 14.7 % (0.0-10.0); %Neutrophils 71.5 % (42.0-75.0); Hemoglobin 10.2 g/dL (12.0-16.0); Mean Corpuscular HGB CONC 33.4 g/dL (32.0-36.0); Mean Corpuscular Hemoglobin 35.9 pg (27.0-31.0); Platelet Count 64 thou/uL (130-400); RBC Distribution Width 16.9 % (11.5-14.5); Red Blood Cell (RBC) Count 2.85 mill/uL (4.20-5.40); White Blood Cell (WBC) Count 7.3 thou/uL (4.8-10.8)
[2017-08-30 10:05] LABS: INR-International Normal Ratio 1.5; PTT 40.6 SEC (22.9-36.1); Prothrombin Time 18.2 SEC (12.0-14.7)
[2017-08-30 10:24] LABS: ALT (SGPT) 55 U/L (8-55); AST (SGOT) 88 U/L (5-34); Albumin 2.4 g/dL (3.4-4.8); Alkaline Phosphatase 237 U/L (40-150); Anion Gap 13 mmol/L (10-20); BUN (Urea Nitrogen) 11 mg/dL (9.8-20.1); Bilirubin, Total 3.8 mg/dL (0.2-1.2); CK (CPK) 66 U/L (29-168); Calc. Creatinine Clearance 0 mL/min (70-130); Calcium 8.6 mg/dL (7.8-10.44); Carbon Dioxide 20 mmol/L (23-31); Chloride 100 mmol/L (98-107); Estimated GFR-MDRD 50; Globulin 3.7 g/dL (2.4-3.5); Glucose 83 mg/dL (80-115); Lipase 67 U/L (8-78); Potassium 3.9 mmol/L (3.5-5.1); Protein, Total 6.1 g/dL (6.0-8.3); Sodium 129 mmol/L (136-145)
[2017-08-30 10:26] LABS: CKMB 2.2 ng/mL (0-6.6); Troponin I Less than 0.010 ng/mL (< 0.028)
--- NOTE | 2017-08-30 10:33 | RAD ---
PA AND LATERAL CHEST: Date: 08/30/17 HISTORY: Dyspnea. Abdominal swelling. Patient has history of cirrhosis and has shortness of breath. COMPARISON: CT thorax from 08/16/17. FINDINGS: There is a large right pleural effusion with only a small amount of aerated right upper lobe medially . The parenchymal opacity in the left upper lobe noted on CT scan examination is less apparent than o n this exam. Right cardiac border is obscured. Vascular calcifications seen in thoracic aorta. Degene rative changes are noted in the spine. Lucency overlyies the right axillary region, which also overl ies the medial right arm. This may be artifactual. IMPRESSION: 1. Large right pleural effusion. However, this has improved from the prior study, and there is now a small amount of aerated lung within the right upper lobe. 2. Ground-glass/parenchymal opacity within the left upper lobe noted on the CT scan exam is not seen on this examination, likely related to resolution of infectious process. POS: [facility]
[2017-08-30] MEDS ORDERED: Ondansetron HCl/PF 4 MG/2 ML Vial IVP PRN (12:54)
[2017-08-30] MEDS ORDERED: Artificial Tears 18 DROP/0.9 ML EA EYE PRN (12:54)
[2017-08-30] MEDS ORDERED: Acetaminophen 325 MG TAB PO PRN (12:54)
[2017-08-30] MEDS ORDERED: Loperamide HCl 2 MG CAP PO PRN (12:54)
[2017-08-30] MEDS ORDERED: Milk Of Magnesia 30 ML UDCUP PO PRN (12:54)
[2017-08-30] MEDS ORDERED: Diabetic Tussin 200 MG/10 ML UDCUP PO PRN (12:54)
[2017-08-30] MEDS ORDERED: Loratadine 10 MG TAB PO PRN (12:54)
[2017-08-30] MEDS ORDERED: Ondansetron ODT 4 MG TAB PO PRN (12:54)
[2017-08-30] MEDS ORDERED: HYDROcodone/Acetaminophen 5/325 mg Tablet PO PRN (12:54)
[2017-08-30] MEDS ORDERED: Chloraseptic Spray 180 ml Bottle PO PRN (12:54)
[2017-08-30] MEDS ORDERED: Sodium Chloride 0.65% Nasal 44 ML BOT EA NARE PRN (12:54)
[2017-08-30] MEDS ORDERED: hydrALAZINE 20 MG/ML VIAL SLOW IVP PRN (12:54)
[2017-08-30] MEDS ORDERED: Senokot 8.6 MG TAB PO PRN (12:54)
[2017-08-30] MEDS ORDERED: Mag-Al 1200 mg/1200 mg/30 ML UDCUP PO PRN (12:54)
[2017-08-30] MEDS ORDERED: Eucerin (Mineral Oil/Petrolatum,White) 30 gm Jar TOP PRN (12:54)
[2017-08-30 12:57] VITALS: BMI 22.8
[2017-08-30] MEDS ORDERED: Sodium Bicarbonate 2.5 MEQ/5 ML VIAL ONE (14:21)
[2017-08-30] MEDS ORDERED: Lidocaine 1% PF 5 ML VIAL ONE (14:21)
--- NOTE | 2017-08-30 14:33 | HP ---
PRIMARY CARE PHYSICIAN: Demetris Piña M.D. PRIMARY CANCELING AND CUTTING CONTROL CLERK: Dr. Stephen Gregorio. REASON FOR ADMISSION: Increasing dyspnea as well as increasing abdominal distention. HISTORY OF PRESENT ILLNESS: A 61-year-old female who has cirrhosis of liver with portal hypertension, who came to emergency room with increasing abdominal distention as well as increasing dyspnea. Patient was recently admitted in our hospital on 08/16/2017. At that time, paracentesis was done and 1.5 liters of fluid was removed. Patient also had a thoracentesis during that admission by Dr. Mahmood and 1 liter of fluid was drained. Patient was discharged home on 09/2017. Since then, patient feels that her abdomen is again getting distended and she is feeling more and more shortness of breath. Today in the emergency room, chest x-ray showed a large right-sided pleural effusion and she does have clinical ascites. Before August, patient had paracentesis done on 08/05/2017. Within 1 month, patient is admitted for third time paracentesis. Patient reports that she is taking Lasix, Aldactone, but she is not responding to diuretic therapy. Patient also following Dr. Gergorio, but patient reports that the patient is not able to get paracentesis in [facility] as well as patient does not have any insurance and that is why she finds easy way to come to ER for procedure to be done. She has orthopnea. She denies any fever or chills. She denies any abdominal pain, but she is feeling uncomfortable because of abdominal distention and the patient is feeling more short of breath because of abdominal distention. Patient reports that she is keeping herself restricted with the liquid and she is trying to be compliant with the diet and medication as much as possible, but for last 2 weeks, she started feeling worse after discharge from previous hospitalization. PAST MEDICAL HISTORY: Alcoholic cirrhosis of liver with portal hypertension, refractory ascites required 2 times paracentesis so far this month, hepatic hydrothorax required thoracentesis during previous admission, history of spontaneous bacterial peritonitis, history of alcohol abuse quit in 2016, chronic microcytic anemia, chronic thrombocytopenia, history of tobacco abuse, quit several years ago, history of miscarriage in 1970s. PAST SURGICAL HISTORY: Paracentesis x2 in 1 month and one time in 04/2016, left breast biopsy, dilatation and curettage. ALLERGIES: SULFA DRUGS. FAMILY HISTORY: Father had lung cancer. Uncle had esophageal cancer, another uncle had colon cancer. Diabetes runs among several family members. SOCIAL HISTORY: Patient resides in [place], [place]. She is . 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 No history of current tobacco, alcohol or illicit drug abuse. She is a former smoker and former alcoholic. REVIEW OF SYSTEMS: The following complete review of systems was negative, unless otherwise mentioned in the HPI or below: Constitutional: Weight loss or gain, ability to conduct usual activities. Skin: Rash, itching. Eyes: Double vision, pain. ENT/Mouth: Nose bleeding, neck stiffness, pain, tenderness. Cardiovascular: Palpitations, dyspnea on exertion, orthopnea. Respiratory: Shortness of breath, wheezing, cough, hemoptysis, fever or night sweats. Gastrointestinal: Poor appetite, abdominal pain, heartburn, nausea, vomiting, constipation, or diarrhea. Genitourinary: Urgency, frequency, dysuria, nocturia. Musculoskeletal: Pain, swelling. Neurologic/Psychiatric: Anxiety, depression. Allergy/Immunologic: Skin rash, bleeding tendency. Please see my HPI for pertinent positive and negative. All other review of systems reviewed and negative except as mentioned in the HPI. CURRENT HOME MEDICATIONS: Folic acid 1 mg p.o. daily, Lasix 20 mg p.o. b.i.d., Aldactone 50 mg p.o. b.i.d., potassium chloride 20 mEq p.o. daily, multivitamin 1 tablet p.o. daily, lactulose 10 grams p.o. b.i.d. PAST PSYCHIATRY HISTORY: Reviewed and negative. EMERGENCY ROOM COURSE: Reviewed. PHYSICAL EXAMINATION: VITAL SIGNS: On arrival, blood pressure 106/43, pulse 90, respiratory rate 20, temperature 97.9, saturation 94% on room air, weight 54.4 kilograms. GENERAL: Patient is currently alert, oriented, no obvious acute distress. HEAD: Normocephalic, atraumatic. EYES: Pupils round, reactive to light. Extraocular muscle intact. Icterus present. No nystagmus. NECK: Supple, no JVD, no thyromegaly, no carotid bruit. LUNGS: Air entry significantly reduced on the right side. No wheeze, no rhonchi, no rales. CARDIAC: S1, S2 regular. No significant murmur noted, no gallop, no rub. ABDOMEN: Ascites noted. Nontender. No organomegaly, no mass, no suprapubic tenderness. BACK: Examination unremarkable, no CVA tenderness. EXTREMITIES: Upper extremity passive movements of all joints are normal. Lower extremity; bilateral lower extremity pedal and ankle edema noted. Good pulsation, no calf tenderness. SKIN: No skin rash. HEMATOLOGICAL SYSTEM: No lymphadenopathy. PSYCHIATRIC: Normal affect. SIGNIFICANT LABORATORY DATA: CBC: WBC 7.3, hemoglobin 10.2, platelet 64, MCV 108. INR 1.5. BMP: Sodium 129, potassium 3.9, chloride 100, carbon dioxide 20 , BUN 11, creatinine 1.10, glucose 83, calcium 8.6. LFT: Bilirubin 3.8, AST 88 , ALT 55, alkaline phosphatase 237, albumin 2.4. Ammonia 38. CK 66, CK-MB 2.2 , troponin I less than 0.010, BNP 61.1, lipase 67. ASSESSMENT AND PLAN/IMPRESSION: 1. Large right-sided pleural effusion due to hepatic hydrothorax that explains patient's dyspnea. The patient prefers thoracentesis to be done. The patient feels that Lasix is not working and that making her discomfort. We will consult Pulmonary if they can do thoracentesis to improve her rapidly. The patient will continue Lasix as an outpatient basis as well. We will provide DuoNeb therapy as needed basis. 2. Refractory ascites. This patient already had 2 paracenteses within a month period and she has reaccumulation of ascites. The patient is meeting clear definition of refractory ascites. The patient should get a paracentesis as an outpatient basis to avoid recurrent hospitalization. Dr. Gregorio should arrange through the Radiology to get outpatient paracentesis, but patient is uninsured that also makes little bit challenging. At this point, we will consult Radiology to do ultrasound guided paracentesis this admission. 3. Cirrhosis of liver with portal hypertension. Patient will continue Lasix 20 mg IV b.i.d., Aldactone 50 mg p.o. b.i.d., lactulose 10 grams p.o. b.i.d. 4. Macrocytic anemia. We will continue folic acid 1 mg p.o. daily, Theragran 1 tablet p.o. daily, vitamin B12 1000 mcg p.o. daily. 5. Chronic thrombocytopenia likely due to cirrhosis of liver with portal hypertension. 6. Coagulopathy due to cirrhosis of liver. 7. Hypervolemic hyponatremia. The patient will need fluid restriction 1200 mL per day and we will repeat BMP tomorrow. 8. Jaundice and abnormal LFT and hypoalbuminemia, likely related with end- stage liver disease from cirrhosis of liver. 9. Deep venous thrombosis prophylaxis. Sequential compression device boots only. No Lovenox because of low platelet count. 10. Gastrointestinal prophylaxis, Pepcid 20 mg p.o. b.i.d. 11. Code status: Patient is DNR. Patient does not want to be resuscitated in case of cardiopulmonary arrest and her daughter is surrogate decision maker. 12. Chronic kidney disease stage 3. We will monitor renal function. Disposition plan based on clinical course, likely more than 2 midnight. Plan of care discussed with the family member and patient in detail. NURISD
--- NOTE | 2017-08-30 15:17 | ULT ---
ULTRASOUND-GUIDED PARACENTESIS: CLINICAL INDICATION: Ascites. PROCEDURE: After informed consent had been obtained, the patient was escorted to the ultrasound suite and placed in a supine position. The abdomen was imaged which revealed adequate ascites for the procedure. Th e skin of the abdomen was then prepped and draped in the standard sterile fashion and the skin surfac e, subcutaneous tissues, and peritoneal lining of the abdomen were anesthetized with 1% Lidocaine buf fered with sodium bicarbonate. A RIGHT lower quadrant approach was selected. A small skin incision was made at the site of topical anesthesia. Subsequently, under real-time ultrasound guidance a Agent Ace catheter was advanced through the incision site into the peritoneal cavity. Ascites was present at the catheter hub. The catheter was then secured to vacuum sealed sterile containers, via sterile tub ing and subsequently 1.8 L of clear yellow ascites was drained from the patient. The patient was the n removed from the patient. The patient tolerated the procedure well without evidence of complicatio n. Postprocedure imaging revealed no complication and interval reduction in volume of ascites. The patient was monitored by a radiology nurse and was stable in condition. IMPRESSION: Technically successful ultrasound-guided paracentesis, as above. POS: [facility]
[2017-08-30] MEDS: Furosemide 20 MG/2 ML VIAL SLOW IVP SCH (15:26)
[2017-08-30 18:44] LABS: Body Fluid Source THORACENTESIS FLD; Pleural Fluid, Glucose 125 mg/dL; Pleural Fluid, LDH 25 U/L (Not Available); Pleural Fluid, Protein Less than 1.0 g/dL
[2017-08-30] MEDS ORDERED: Benzonatate 100 MG CAP PO PRN (18:46)
[2017-08-30 18:49] LABS: BF Color Yellow; Clarity Hazy (Clear); Tube # 1
[2017-08-30 18:53] LABS: BF RBC Count - Manual 119 /cumm; BF WBC/Nonhematics Ct. - Manua 43 /cumm
[2017-08-30 19:21] LABS: BF Segmented Neutrophils 8 %; Cell Count Non Hematic 82 %; Lymphocytes 10 %
[2017-08-30] MEDS: Famotidine 20 MG TAB PO SCH (21:46)
[2017-08-30] MEDS: Spironolactone 100 MG TAB PO SCH (21:49)
--- NOTE | 2017-08-30 21:49 | CON ---
DATE OF CONSULTATION: 08/30/2017 SERVICE: Pulmonary Medicine. REASON FOR CONSULTATION: Pleural effusion. HISTORY OF PRESENT ILLNESS: Patient is a 61-year-old white female with past medical history signific ant for advanced cirrhosis. She has had a hepatic hydrothorax previously identified a couple weeks o f ago during a thoracentesis. She was in her usual state of health and had increasing work of breath ing and shortness of breath prompting her to present to the emergency department. She underwent para centesis. It pulled up 1.8 liters. Her dyspnea improved a little bit, but she had persistent shortn ess of breath. She denies any current fevers, chills, nausea or vomiting. She was otherwise in her usual state of health. PAST MEDICAL HISTORY: 1. Cirrhosis. 2. History of alcohol abuse. 3. Hepatic hydrothorax. 4. History of spontaneous bacterial peritonitis. 5. History of hepatic encephalopathy. 6. Microcytic anemia. 7. Thrombocytopenia. 8. Tobacco abuse, resolved. PAST SURGICAL HISTORY: 1. Paracentesis x3. 2. Thoracentesis x1. 3. Breast biopsy. 4. Dilation and curettage. ALLERGIES: SULFA. MEDICATIONS: List of inpatient medications was reviewed. No specific updates were made. FAMILY HISTORY: Noncontributory. SOCIAL HISTORY: She has a remote history of significant alcohol abuse. She has no exposure to chemi cals, dust asbestos or tuberculosis. She does not currently use any alcohol or tobacco. She has a g reater than [id number] history of smoking. REVIEW OF SYSTEMS: General, head, ears, eyes, nose, throat, cardiovascular, respiratory, musculoskel etal, neurologic, and skin is negative except as mentioned in HPI. PHYSICAL EXAMINATION: VITAL SIGNS: Afebrile, pulse 90, blood pressure 100/55, respirations 19, saturation 92% on 2 liters nasal cannula. GENERAL: The patient is awake, alert, no apparent distress. LUNGS: Excellent air entry. There is no prolonged expiratory phase on the left. On the right, ther e is decreased air entry at the base with no prolonged expiratory phase, wheezing or crackles. HEART: Normal rate, regular. ABDOMEN: Soft, nontender and nondistended. Bowel sounds are positive. MUSCULOSKELETAL: No cyanosis or clubbing. No pitting in the bilateral lower extremities. NEUROLOGIC: Grossly nonfocal. LABORATORY DATA: WBC 7.3, hemoglobin 10.2, platelets 64,000. INR 1.5. Basic metabolic profile is u nremarkable except for sodium of 129. Alkaline phosphatase 237. Liver function studies are otherwis e unremarkable. BNP 61, troponin is below the assay limit of normal. Ammonia is only 38. IMAGING DATA: Chest x-ray demonstrates complete opacification of the right hemithorax. ASSESSMENT: 1. Dyspnea. 2. Pleural effusion on the right with history of proven hepatic hydrothorax. 3. Cirrhosis, advanced. DISCUSSION AND PLAN: The patient has very significant dyspnea associated with this large collection of fluid. We will perform a thoracentesis for diagnostic and therapeutic purposes. She needs to be evaluated very closely in or outpatient setting. She needs to be considered for TIPS procedure if we cannot keep these fluids away without medications, she is very likely to have a complication from th oracentesis at some point in the future. I have discussed this with the patient today. She understa nds that this is not a long-term strategy for dealing with this fluid collection. After the thoracen tesis, from a purely respiratory perspective, she will be more than stable for transition home.
--- NOTE | 2017-08-30 23:52 | OP ---
DATE OF SERVICE: 08/30/2017 SERVICE: Pulmonary Medicine. PROCEDURE: Right-sided pleural drainage with catheter insertion under ultrasound guidance. CONSENT: The risks and benefits of the procedure were explained to the patient with all questions an swered and alternative options explained. STAFF PHYSICIAN: Adan Webber M.D. MEDICATIONS USED: 1% lidocaine without epinephrine, a total quantity 10 mL. PREOPERATIVE DIAGNOSES: 1. Dyspnea. 2. Pleural effusion. POSTPROCEDURE DIAGNOSES: 1. Dyspnea. 2. Pleural effusion. DESCRIPTION OF PROCEDURE: A timeout was performed by the procedure team and patient. The patient wa s positively identified using name and date of . The procedure site was marked. Vital sign mon itoring was accomplished by noninvasive hemodynamic monitoring, pulsoximetry. In the seated position, the right posterior hemithorax was examined using ultrasound probe. The diap hragm and pleural fluid were easily identified. The skin was prepped and draped in the usual sterile fashion and anesthetized with 1% lidocaine without epinephrine. A finder needle was inserted in the pleural space with return of clear-yellow fluid. Pleural drainage catheter was then inserted in the same location, a total quantity of 1300 mL of pleural fluid was withdrawn by syringe pump technique. A sample was sent for analysis. Evacuation of fluid was terminated because the patient went into a coughing paroxysm and requested for the procedure to the end. At the end of the procedure, estimate d pleural pressures, measured by manometry, was -16 cm of pleural fluid. The intact catheter was wit hdrawn on exhalation and a sterile dressing was applied. The patient has stable vitals throughout e entire procedure. ESTIMATED BLOOD LOSS: Less than 1 mL. COMPLICATIONS: None.
[2017-08-31 05:08] LABS: #Eosinphils 0.2 thou/uL (0.0-0.7); #Monocytes 1.3 thou/uL (0.11-0.59); #Neutrophils 7.6 thou/uL (1.40-6.50); %Basophils 0.2 % (0.0-1.0); %Eosinophils 1.6 % (0.0-10.0); %Lymphocytes 9.9 % (21.0-51.0); %Monocytes 12.4 % (0.0-10.0); %Neutrophils 75.9 % (42.0-75.0); Hemoglobin 9.4 g/dL (12.0-16.0); Mean Corpuscular HGB CONC 33.9 g/dL (32.0-36.0); Mean Corpuscular Hemoglobin 36.4 pg (27.0-31.0); Mean Platelet Volume 8.3 fL (7.4-10.4); Platelet Count 65 thou/uL (130-400); RBC Distribution Width 16.9 % (11.5-14.5); Red Blood Cell (RBC) Count 2.58 mill/uL (4.20-5.40)
[2017-08-31 05:40] LABS: ALT (SGPT) 46 U/L (8-55); AST (SGOT) 74 U/L (5-34); Albumin 2.1 g/dL (3.4-4.8); Alkaline Phosphatase 218 U/L (40-150); Anion Gap 11 mmol/L (10-20); BUN (Urea Nitrogen) 13 mg/dL (9.8-20.1); Bilirubin, Total 2.5 mg/dL (0.2-1.2); Calc. Creatinine Clearance 51 mL/min (70-130); Calcium 7.8 mg/dL (7.8-10.44); Carbon Dioxide 21 mmol/L (23-31); Chloride 99 mmol/L (98-107); Estimated GFR-MDRD 57; Globulin 3.2 g/dL (2.4-3.5); Glucose 91 mg/dL (80-115); Potassium 4.1 mmol/L (3.5-5.1); Protein, Total 5.3 g/dL (6.0-8.3); Sodium 127 mmol/L (136-145)
[2017-08-31] MEDS: Furosemide 20 MG/2 ML VIAL SLOW IVP SCH ×2 (06:24→14:53)
[2017-08-31] MEDS: Famotidine 20 MG TAB PO SCH (08:28)
[2017-08-31] MEDS ORDERED: Cyanocobalamin (Vitamin B-12) 1,000 MCG TAB PO SCH (09:00)
[2017-08-31] MEDS ORDERED: Folic Acid 1 MG TAB PO SCH (09:00)
[2017-08-31] MEDS ORDERED: Multivit, Therapeutic 1 TAB PO SCH (09:00)
[2017-08-31] MEDS ORDERED: Potassium Chloride 20 MEQ TAB PO SCH (09:00)
[2017-08-31] MEDS: Spironolactone 100 MG TAB PO SCH (11:27)
--- NOTE | 2017-08-31 11:45 | PDOC.PN ---
- Subjective Encounter Start Date: 08/31/17 Encounter Start Time: 09:45 -: old records requested/rev s/p throracentesis and paracentesis, overall doing well - Objective MAR Reviewed: Yes Vital Signs & Weight: Vital Signs (12 hours) Temp Pulse Resp BP Pulse Ox 08/31/17 08:13 98 F 82 16 93/55 L 96 08/31/17 08:00 98 F 82 16 96 I&O: 08/30/17 08/31/17 09/01/17 06:59 06:59 06:59 Intake Total 100 Balance 100 Result Diagrams: 08/31/17 03:19 08/31/17 03:19 Phys Exam - Physical Examination Constitutional: NAD HEENT: PERRLA, moist MMs icterus+ Neck: no JVD, supple Respiratory: no wheezing, no rales, no rhonchi air entry reduced on right side Cardiovascular: RRR, no significant murmur, no rub Gastrointestinal: soft, no distention, positive bowel sounds ascites+ Musculoskeletal: pulses present, edema present Neurological: non-focal, normal sensation, moves all 4 limbs Lymphatic: no nodes Psychiatric: normal affect, A&O x 3 Skin: no rash, normal turgor Dx/Plan (1) Dyspnea Code(s): R06.00 - DYSPNEA, UNSPECIFIED Status: Acute Comment: Secondary to R pleural effusion, anticipate improvement with thoracentesis (2) Pleural effusion, right Code(s): J90 - PLEURAL EFFUSION, NOT ELSEWHERE CLASSIFIED Status: Acute Comment: Opacification of R hemithorax from effusion, thoracentesis done, O2 prn , Duonebs prn (3) Abnormal LFTs Code(s): R79.89 - OTHER SPECIFIED ABNORMAL FINDINGS OF BLOOD CHEMISTRY Status : Chronic (4) Alcoholic cirrhosis of liver with ascites Code(s): K70.31 - ALCOHOLIC CIRRHOSIS OF LIVER WITH ASCITES Status: Chronic Comment: Recurrent ascites in context ESLD, s/p paracentesis with 1.8L removed , Lasix 20mg po BID, and aldactone 50 mg po bid (5) Coagulopathy Status: Chronic Comment: due to liver disease (6) Esophageal varices Code(s): I85.00 - ESOPHAGEAL VARICES WITHOUT BLEEDING Status: Chronic Qualifiers: Esophageal varices bleeding: without bleeding (7) GERD (gastroesophageal reflux disease) Code(s): K21.9 - GASTRO-ESOPHAGEAL REFLUX DISEASE WITHOUT ESOPHAGITIS Status: Chronic (8) Hyponatremia Code(s): E87.1 - HYPO-OSMOLALITY AND HYPONATREMIA Status: Chronic (9) Macrocytic anemia Code(s): D53.9 - NUTRITIONAL ANEMIA, UNSPECIFIED Status: Chronic Comment: (10) Moderate protein-calorie malnutrition Code(s): E44.0 - MODERATE PROTEIN-CALORIE MALNUTRITION Status: Chronic (11) Thrombocytopenia Code(s): D69.6 - THROMBOCYTOPENIA, UNSPECIFIED Status: Chronic - Plan cont current plan of care * medication reviewed as below * symptomatic treatment * overall doing well * will get chest xray today * continue lasix, aldactone * she is continue to be high risk for readmission * she may benefit from TIPS. Review of Systems - Review of Systems Constitutional: negative: fever, chills, sweats, weakness, malaise, other Eyes: negative: Pain, Vision Change, Conjunctivae Inflammation, Eyelid Inflammation, Redness, Other ENT: negative: Ear Pain, Ear Discharge, Nose Pain, Nose Discharge, Nose Congestion, Mouth Pain, Mouth Swelling, Throat Pain, Throat Swelling, Other Respiratory: SOB with Excertion. negative: Cough, Dry, Shortness of Breath, Hemoptysis, Pleuritic Pain, Sputum, Wheezing Cardiovascular: negative: chest pain, palpitations, orthopnea, paroxysmal nocturnal dyspnea, edema, light headedness, other Gastrointestinal: negative: Nausea, Vomiting, Abdominal Pain, Diarrhea, Constipation, Melena, Hematochezia, Other Genitourinary: negative: Dysuria, Frequency, Incontinence, Hematuria, Retention , Other Musculoskeletal: negative: Neck Pain, Shoulder Pain, Arm Pain, Back Pain, Hand Pain, Leg Pain, Foot Pain, Other Skin: negative: Rash, Lesions, Boris, Bruising, Other - Medications/Allergies Allergies/Adverse Reactions: Allergies Allergy/AdvReac Type Severity Reaction Status Date / Time Sulfa (Sulfonamide Allergy Verified 08/15/17 20:06 Antibiotics) Medications: Current Medications Acetaminophen (Tylenol) 650 mg PO Q4H PRN PRN Reason: Headache/Fever or Pain Hydrocodone Bitart/Acetaminophen ([place] 5/325) 1 tab PO Q4H PRN PRN Reason: Moderate Pain (4-6) Al Hydroxide/Mg Hydroxide (Maalox) 30 ml PO Q6H PRN PRN Reason: Heartburn or Indigestion Albuterol/Ipratropium (Duoneb) 3 ml NEB [id number] PRN PRN Reason: SOB &/or Wheezing Artificial Tears (Tears Naturale) 0 drop EA EYE PRN PRN PRN Reason: Dry Eyes Benzonatate (Tessalon) 100 mg PO TIDPRN PRN PRN Reason: .COUGH Last Admin: 08/30/17 21:49 Dose: 100 mg Cyanocobalamin (Vitamin B-12) 1,000 mcg PO DAILY [facility] Last Admin: 08/31/17 08:28 Dose: 1,000 mcg Famotidine (Pepcid) 20 mg PO BID [facility] Last Admin: 08/31/17 08:28 Dose: 20 mg Folic Acid (Folvite) 1 mg PO DAILY [facility] Last Admin: 08/31/17 08:28 Dose: 1 mg Furosemide (Lasix) 20 mg SLOW IVP 0600,1400 [facility] Last Admin: 08/31/17 06:24 Dose: 20 mg Guaifenesin (Robitussin Sf) 200 mg PO Q4H PRN PRN Reason: Cough Hydralazine HCl (Apresoline) 10 mg SLOW IVP Q4H PRN PRN Reason: Systolic BP > 180 Lactulose (Lactulose) 10 gm PO BID [facility] Last Admin: 08/31/17 08:29 Dose: 10 gm Lactulose (Lactulose) 20 gm PO DAILYPRN PRN PRN Reason: Constipation Loperamide HCl (Imodium) 2 mg PO PRN PRN PRN Reason: Diarrhea/Loose Stools Loratadine (Claritin) 10 mg PO DAILYPRN PRN PRN Reason: Sinus Symptoms Magnesium Hydroxide (Milk Of Magnesium) 30 ml PO DAILYPRN PRN PRN Reason: Constipation Mineral Oil/White Petrolatum (Eucerin Cream) 0 gm TOP BIDPRN PRN PRN Reason: Dry Skin Multivitamins (Theragran) 1 tab PO DAILY [facility] Last Admin: 08/31/17 08:28 Dose: 1 tab Ondansetron HCl (Zofran Odt) 4 mg PO Q6H PRN PRN Reason: Nausea/Vomiting Ondansetron HCl (Zofran) 4 mg IVP Q6H PRN PRN Reason: Nausea/Vomiting Phenol (Chloraseptic [place] 180 Ml Bot) 0 ml PO PRN PRN PRN Reason: Sore Throat Potassium Chloride (K-Dur) 20 meq PO DAILY [facility] Last Admin: 08/31/17 08:28 Dose: 20 meq Senna (Senokot) 2 tab PO HSPRN PRN PRN Reason: Constipation Sodium Chloride (Felt Nasal [place] 0.65%) 0 ml EA NARE QIDPRN PRN PRN Reason: Nasal Congestion Spironolactone (Aldactone) 50 mg PO BID [facility] Last Admin: 08/31/17 11:27 Dose: 50 mg
--- NOTE | 2017-08-31 13:06 | DIS ---
DATE OF ADMISSION: 08/30/2017 DATE OF DISCHARGE: 08/31/2017 PRIMARY CARE PHYSICIAN: [facility] call admission. DISCHARGE DISPOSITION: Home. PRIMARY DISCHARGE DIAGNOSES: 1. Dyspnea due to increasing right pleural effusion, status post thoracentesis. 2. Abdominal distension due to recurrent ascites status post paracentesis. SECONDARY DISCHARGE DIAGNOSES: Chronic thrombocytopenia, moderate protein calorie malnutrition, macr ocytic anemia, hyponatremia, gastroesophageal reflux disease, history of esophageal varices, coagulop athy due to liver disease, alcoholic cirrhosis with ascites and abnormal liver function tests due to end-stage liver disease. PRIMARY PROCEDURE/OPERATION: Thoracentesis was performed by Dr. Webber and 1.3 liters of fluid was removed. Paracentesis was done by radiologist and 1.8 liter of fluid was removed. RADIOLOGICAL INVESTIGATION: Chest x-ray showed large right-sided pleural effusion. SIGNIFICANT LABORATORY DATA: WBC 10.0, hemoglobin 9.4, MCV 107, platelets 65. INR 1.5. Sodium 127, potassium 4.1, BUN 13, creatinine 0.99, calcium 7.8, bilirubin 2.5, AST 74, ALT 46, alkaline phospha tase 218, albumin 2.1. Cardiac enzymes negative. BNP 61.1. Ammonia 38, CK 66. Thoracic fluid is t ransudative. Pleural fluid culture is negative. DISCHARGE MEDICATIONS: Vitamin B12 1000 mcg p.o. daily, Pepcid 20 mg p.o. b.i.d., folic acid 1 mg p. o. daily, Lasix 20 mg p.o. b.i.d., lactulose 10 grams p.o. b.i.d., multivitamin 1 tablet p.o. daily, potassium chloride 20 mEq p.o. daily, Aldactone 50 mg p.o. b.i.d. CONTRAINDICATIONS: None. CODE STATUS: DNR. This was discussed during this admission. INPATIENT NICKER AND BREAKER: Dr. Webber was consulted for thoracentesis. TEST RESULTS PENDING ON DISCHARGE: None. ALLERGIES: SULFA DRUGS. DISCHARGE PLAN: Post hospital, patient will follow up with Dr. Gregorio and patient has appointment in 0 09/11/[address] Gregorio. HOSPITAL COURSE: A 61-year-old female who has alcoholic cirrhosis of liver with portal hypertension and recurrent ascites. She was admitted for increasing dyspnea as well as increasing abdominal diste ntion. She was having recurrent ascites and she was having recurrent right pleural effusion from cir rhosis of liver. During this admission, patient required paracentesis and 1.8 liter of fluid removed . Patient also required thoracentesis and 1.3 liter fluid removed. After these 2 procedures, patien t significantly felt better. We provided patient education about fluid restriction as well as salt r estriction. The patient is advised to continue Lasix, Aldactone as per previous. Rest of medication was continued as per previous. The patient is on room air. Patient has continued to be high risk f or recurrent admission given her advanced liver disease. To prevent her recurrent ascites, she may n eed a TIPS procedure that can be referred from the cargo agent as an outpatient basis. Unfort unately, this patient does not have any insurance and she prefers to come to ER for admission and for procedure she requires to be inpatient status. After procedure, she gets dramatically much better a nd today she expressed her wish to go home. The patient is seen and examined at bedside today. Please see my progress note from today for furthe r detail. Before discharge, we are going to do a chest x-ray for rule out any complication as well a s improvement in her pleural effusion. The patient later on today, she will be discharged home with the same previous medication. Total time spent on discharge day more than 30 minutes.
--- NOTE | 2017-08-31 14:18 | RAD ---
AP VIEW OF THE CHEST: INDICATION: History of pleural effusion. COMPARISON: Prior exam dated 08/30/17. FINDINGS: Large right-sided pleural effusion has decreased in prominence. Moderate right pleural effusion ganga ins. The left lung is clear. Visualized heart size is within normal limits. No acute osseous abnor mality is evident. IMPRESSION: Improvement in the right pleural effusion. Moderate right pleural effusion remains. The left lung i s clear. POS: [facility]
[2017-08-31 15:04] VITALS: BP 94/60; TEMP 97.8
--- NOTE | 2017-08-31 16:13 | PRG ---
DATE OF SERVICE: 08/31/2017 SERVICE: Pulmonary Medicine. INTERVAL HISTORY: The patient is doing outstanding from a respiratory standpoint. She is breathing comfortably. She is already has her civilian clothes on. She is hoping for discharge paperwork as s oon as she can go home. Otherwise, there were no events. There were no fevers or chills overnight. Her belly swelling is low. PHYSICAL EXAMINATION: VITAL SIGNS: Afebrile, pulse 89, blood pressure 94/60, respirations 16, saturation 97% on room air. GENERAL: The patient is awake, alert, no apparent distress. LUNGS: Decent air entry. There is no prolonged expiratory phase or wheezing. HEART: Normal rate, regular. ABDOMEN: Soft, nontender, nondistended. Bowel sounds are positive. MUSCULOSKELETAL: No cyanosis or clubbing. There is 1+ pitting in the bilateral lower extremities. NEUROLOGIC: Grossly nonfocal. LABORATORY DATA: WBC 10.0, hemoglobin 9.4, platelets 65,000. Sodium 127. Basic metabolic profile i s otherwise unremarkable. Total bilirubin is down trending to 2.5, AST 74 and down trending. Alkali ne phosphatase 218. BNP 61 and troponin 0.01. Thoracentesis fluid is consistent with a transudate, it is fairly acellular. IMAGING DATA: Chest x-ray demonstrates interval improvement in the right-sided pleural effusion. Th ere remains a moderate right-sided pleural effusion. Left lung is without any significant effusion c omponent. ASSESSMENT: 1. Dyspnea. 2. Hepatic hydrothorax. 3. Cirrhosis. DISCUSSION AND PLAN: The patient is stable for transition home. She will need to follow up with her GI doctor in a very short period of time in order to discuss additional procedures that can be done to prevent recurrence of fluid. Ultimately, she understands that this is not a long-term strategy fo r her chest fluid. If we continue to rely on repeat thoracentesis, it is matter of time before she h as a complication that will be life threatening like bleeding. That being said, from my perspective, she is stable for transition out of the hospital. I will continue to follow if she happens to remai n inhouse, however.
== END 2017-08-31 15:17 | disposition home or self-care (01) | DRG 187 ==
LOC: ERS 09:09 → 2SW 12:38 → OBSVTOIN 14:43 → T4-B 17:17
PROVIDERS: ADMIT Internal Medicine; ATTEND Internal Medicine
PROC: 0W9930Z Drainage of Right Pleural Cavity with Drainage Device, Percutaneous Approach (ICD-10-PCS; principal; 2017-08-30)
PROC: 0W9G30Z Drainage of Peritoneal Cavity with Drainage Device, Percutaneous Approach (ICD-10-PCS; 2017-08-30)
DX: J90 Pleural effusion, not elsewhere classified (principal); K76.6 Portal hypertension; E87.1 Hypo-osmolality and hyponatremia; D68.9 Coagulation defect, unspecified; E44.0 Moderate protein-calorie malnutrition; I85.00 Esophageal varices without bleeding; K70.31 Alcoholic cirrhosis of liver with ascites; D53.9 Nutritional anemia, unspecified; K21.9 Gastro-esophageal reflux disease without esophagitis; Z68.22 Body mass index [BMI] 22.0-22.9, adult; D69.6 Thrombocytopenia, unspecified; N18.3 Chronic kidney disease, stage 3 (moderate)
CPT/HCPCS: 36415; 49083; 71045; 71046; 80053; 82140; 82553; 82945; 83615; 83690; 83880; 84157; 84484; 85025; 85060; 85610; 85730; 87070; 87205; 89051; 93005; J1940; J2001

== ENCOUNTER 2017-09-19 14:21 | Emergency (ER) | payer OTHER, SELFPAY ==
[2017-09-19 15:23] LABS: Hemoglobin 10.9 g/dL (12.0-16.0); Mean Corpuscular HGB CONC 33.9 g/dL (32.0-36.0); Mean Platelet Volume 7.4 fL (7.4-10.4); Platelet Count 78 thou/uL (130-400); RBC Distribution Width 15.4 % (11.5-14.5); Red Blood Cell (RBC) Count 2.95 mill/uL (4.20-5.40); White Blood Cell (WBC) Count 6.2 thou/uL (4.8-10.8)
[2017-09-19 15:43] LABS: ALT (SGPT) 74 U/L (8-55); AST (SGOT) 105 U/L (5-34); Albumin 2.5 g/dL (3.4-4.8); Alkaline Phosphatase 269 U/L (40-150); Anion Gap 10 mmol/L (10-20); BUN (Urea Nitrogen) 15 mg/dL (9.8-20.1); Bilirubin, Total 4.4 mg/dL (0.2-1.2); Calc. Creatinine Clearance 0 mL/min (70-130); Calcium 8.7 mg/dL (7.8-10.44); Carbon Dioxide 25 mmol/L (23-31); Chloride 98 mmol/L (98-107); Estimated GFR-MDRD 43; Globulin 3.7 g/dL (2.4-3.5); Glucose 166 mg/dL (80-115); Potassium 4.3 mmol/L (3.5-5.1); Protein, Total 6.2 g/dL (6.0-8.3); Sodium 129 mmol/L (136-145)
[2017-09-19 15:53] LABS: Anisocytosis SLIGHT = 6-15 cells (100X) (0-5/hpf); Band 2 % (5-11); Lymphocytes 15 % (21-51); MDiff Complete? YES; Macrocytosis SLIGHT = 6-15 cells (100X) (0-5/hpf); Monocytes 6 % (0-10); Neutrophil 73 % (42-75); PLT Morphology Comment Appears Decreased; Polychromasia SLIGHT = 2-3 cells (100X) (0-2/hpf); Reactive Lymphocytes 2 % (0-10)
--- NOTE | 2017-09-19 16:06 | RAD ---
PORTABLE CHEST ONE VIEW: 09/19/17 at 3:58 p.m. HISTORY: Dyspnea. FINDINGS: Comparison is made with exam of 08/31/17. The heart size is stable. There is worsening of the right sided pleural effusion with opacification o f the right hemithorax. The left lung is clear. IMPRESSION: Interval worsening of right pleural effusions since 08/31/17. POS: OFF
[2017-09-19 16:46] LABS: Troponin I Less than 0.010 ng/mL (< 0.028)
[2017-09-19] MEDS ORDERED: Lidocaine 1% (PF) 30 ML VIAL ONE (17:08)
--- NOTE | 2017-09-19 17:48 | PDOC.OP ---
Operative Note - Operative Note Operative Note: INDICATION: R pleural effusion PROCEDURE RESIDENTIAL G[employer] HE[employer] TECHNICIAN: Dr. Angel Torres ATTENDING PHYSICIAN: Dr. Adan Webber In Attendance for the entirety of the procedure CONSENT: obtained Consent was obtained from patient prior to the procedure. Indications, risks, and benefits were explained at length. PROCEDURE SUMMARY: A time out was performed and the chest x-ray was reviewed, the appropriate side was confirmed and marked using ultrasound guidance. My hands were washed immediately prior to the procedure. I wore sterile gloves throughout the procedure. The patient was prepped and draped in a sterile manner using chlorhexidine scrub after the appropriate level was percussed and confirmed by ultrasound. 1% lidocaine was used to anesthesize the skin, subcutaneous tissue, superior aspect of the rib periosteum and parietal pleura. 5cc of pleural fluid was aspirated at a depth of about 1.5cm. A 10-blade scalpel was used to jac the skin at the insertion site. The [id number] needle was then introduced through the skin incision into the pleural space using negative aspiration pressure . The thoracentesis catheter was then threaded without difficulty. 1000 ml of clear-straw colored fluid was removed without difficulty. The patient develop chest pain wrapping around the chest. After taking a few deep breaths the pain lessened. 5cc of lidocaine was injected into the pleural space. The pain was still mild so the procedure was stopped although more fluid could have been removed. The catheter was then removed. No immediate complications were noted during the procedure. The fluid will be sent for studies. Estimated blood loss is 3cc.
--- NOTE | 2017-09-19 23:13 | CON ---
DATE OF CONSULTATION: 09/19/2017 SERVICE: Pulmonary Medicine. REASON FOR CONSULTATION: Pleural effusion. HISTORY OF PRESENT ILLNESS: Patient is a 61-year-old white female with past medical history significant for cirrhosis. She has frequent ascites collecting. She has also developed hepatic hydrothorax. She had a thoracentesis done on two separate occasions. Each time, this has been done, she has had significant improvement in her dyspnea. That being said, each one provided or caused her to have a coughing spell. She was in her usual state of health until last week or so. She has had progressive increasing dyspnea on exertion. She denies any seizures, fevers, chills, nausea, vomiting, or diarrhea. She has not had any chest discomfort. She is not coughing up any sputum, other than some occasional clear white phlegm. Otherwise, she was in her usual state of health and has no specific complaints. She sees Dr. Gregorio in clinic next week. She has yet to discuss with him other things that can be done or to decrease the reaccumulation of fluid. PAST MEDICAL HISTORY: 1. Cirrhosis. 2. Alcohol abuse. 3. Hepatic hydrothorax. 4. History of spontaneous bacterial peritonitis. 5. History of hepatic encephalopathy. 6. Microcytic anemia. 7. Thrombocytopenia. 8. Tobacco abuse, resolved. PAST SURGICAL HISTORY: 1. Paracentesis x3. 2. Thoracentesis x3. 3. Breast biopsy. 4. Dilation and curettage. ALLERGIES: SULFA. MEDICATIONS: Her home medications were reviewed. No specific updates were made at this time. FAMILY HISTORY: Noncontributory. SOCIAL HISTORY: She has a remote history of significant alcohol use. She also is a remote smoker. She denies any current illicit drugs. She has no exposure to chemicals, dust, asbestos, or tuberculosis. REVIEW OF SYSTEMS: General, head, ears, eyes, nose, throat, cardiovascular, respiratory, GI, , musculoskeletal, neurologic and skin is negative except as mentioned in the HPI. PHYSICAL EXAMINATION: VITAL SIGNS: Afebrile, pulse 72, respirations 15, saturation 99% on room air. GENERAL: Patient is awake, alert in no apparent distress. She is talking in full sentences. HEENT: Normocephalic, atraumatic. Sclerae yellow, conjunctivae pink. Oral and nasal mucosa is moist without lesions. LUNGS: Decreased air entry at the right. There is no prolonged expiratory phase with crackles present. There is good air entry on the left with no prolonged expiratory phase, wheezing, rhonchi, or crackles. HEART: Normal rate, regular. ABDOMEN: Soft, nontender, nondistended. Bowel sounds are positive. MUSCULOSKELETAL: No cyanosis or clubbing. NEUROLOGIC: Grossly nonfocal. EXTREMITIES: There is 2+ pitting in the bilateral lower extremities. LABORATORY DATA: WBC 6.2, hemoglobin 10.9, platelets 78,000. Band count is only 2% with normal differential neutrophils. INR 1.5. Basic metabolic profile is completely unremarkable. Creatinine 1.27. AST and ALT are marginally elevated. Alkaline phosphatase 269. BNP slightly elevated at 131, troponin negative x1. CK falls within normal limits. IMAGIN. Chest x-ray demonstrates hemiopacification of the right thorax. 2. Ultrasound at bedside demonstrates a very large right-sided pleural effusion with near complete atelectasis of the entirety of the right lung. There is a free-flowing fluid and does not look to be any significant loculations present. ASSESSMENT: 1. Dyspnea on exertion. 2. Hepatic hydrothorax. 3. Cirrhosis, advanced. DISCUSSION AND PLAN: We will proceed with thoracentesis to see if we can provide some symptomatic relief. Truth to be told, her saturations are normal, but she has severe dyspnea, likely because of the mechanics of breathing had been altered with this amount of fluid. If she is comfortable after the procedure, she can be considered that there will be absolutely no reason to keep her in the hospital from a purely respiratory perspective. If she is ultimately admitted to the hospital, GI consultation needs to be considered, as repeat thoracentesis is not a long-term management strategy for this issue. I have once again discussed with her the risks and benefits of proceeding with this procedure. Ultimately, if we continue doing this, we will have a complication of bleeding, which could be life threatening in her. 70 minutes have been devoted to this patient in various activities. I personally reviewed all imaging studies and laboratory data noted within this document. For fifty percent of this time, I was interacting with the patient at the bedside or coordinating care with the care team. For the remainder of the time I was immediately available to the patient in the hospital unit. [place]
== END 2017-09-19 19:39 | disposition home or self-care (01) ==
LOC: ERS 14:21
DX: J90 Pleural effusion, not elsewhere classified (principal); K74.60 Unspecified cirrhosis of liver; K21.9 Gastro-esophageal reflux disease without esophagitis; E78.5 Hyperlipidemia, unspecified; Z87.891 Personal history of nicotine dependence; Z79.899 Other long term (current) drug therapy
CPT/HCPCS: 36415; 71045; 80053; 82553; 83880; 84484; 85025; 87205; 93005; J2001

== ENCOUNTER 2017-10-10 12:32 | Inpatient (IN) | payer OTHER, SELFPAY ==
[2017-10-10 14:09] LABS: Hemoglobin 10.7 g/dL (12.0-16.0); Mean Corpuscular HGB CONC 34.4 g/dL (32.0-36.0); Platelet Count 78 thou/uL (130-400); RBC Distribution Width 14.2 % (11.5-14.5); White Blood Cell (WBC) Count 8.5 thou/uL (4.8-10.8)
[2017-10-10 14:21] LABS: ALT (SGPT) 60 U/L (8-55); AST (SGOT) 89 U/L (5-34); Albumin 2.1 g/dL (3.4-4.8); Alkaline Phosphatase 249 U/L (40-150); Anion Gap 12 mmol/L (10-20); BUN (Urea Nitrogen) 18 mg/dL (9.8-20.1); Calc. Creatinine Clearance 0 mL/min (70-130); Calcium 8.3 mg/dL (7.8-10.44); Carbon Dioxide 22 mmol/L (23-31); Chloride 95 mmol/L (98-107); Estimated GFR-MDRD 35; Globulin 3.8 g/dL (2.4-3.5); Glucose 133 mg/dL (80-115); Lipase 72 U/L (8-78); Potassium 4.2 mmol/L (3.5-5.1); Protein, Total 5.9 g/dL (6.0-8.3); Sodium 125 mmol/L (136-145)
[2017-10-10 14:33] LABS: Anisocytosis SLIGHT = 6-15 cells (100X) (0-5/hpf); Band 5 % (5-11); Eosinophils 3 % (0-10); Lymphocytes 4 % (21-51); MDiff Complete? YES; Monocytes 2 % (0-10); Neutrophil 86 % (42-75); PLT Morphology Comment Appears Decreased
--- NOTE | 2017-10-10 17:09 | PDOC.FPRHP ---
- History of Present Illness Chief Complaint: Nausea/Vomiting and Abdominal Pain History of Present Illness: 61 yr old female with PMH of alcoholic cirrhosis with refractory ascites presents with nausea and vomiting. Pt diagnosed with Alcoholic Hepatitis with ascites in January 2017 and has since had thoracenteses x2 and paracenteses x3 with increasing frequency- last one 09/19. Pt reportedly sees Dr. Gregorio (GI). Pt reports that nausea has been persistent and increasing since January diagnosis and oral lactulose is the main exacerbating factor for vomiting. Pt denies fevers, endorses occasional chills though not during interview. Code Status- DNR/DNI ED Course: Pt given fluids at 100ml/hr - Allergies/Adverse Reactions Allergies Allergy/AdvReac Type Severity Reaction Status Date / Time Sulfa (Sulfonamide Allergy Verified 08/15/17 20:06 Antibiotics) - Home Medications Medication Instructions Recorded Confirmed Type Lactulose 10 gm PO BID 05/10/17 10/10/17 History Folic Acid [Folvite] 1 mg PO DAILY #30 tab 05/14/17 10/10/17 Rx Potassium Chloride [K-Dur] 20 meq PO DAILY #30 tab 08/18/17 10/10/17 Rx Spironolactone [Aldactone] 50 mg PO BID tab 08/18/17 10/10/17 Rx Furosemide [Lasix] 20 mg PO DAILY 10/10/17 10/10/17 History Pantoprazole [Protonix] 40 mg PO DAILY 10/10/17 10/10/17 History - History PMHx: alcoholic cirrhosis with portal HTN, refractory ascites, hepatic hydrothorax, hx of SBP, hx of alcohol abuse, chronic macrocytic anemia, chronic thrombocytopenia, hx of tobacco abuse, hx of small esophageal varices by EGD in 01/2017 PSHx: paracentesis x 3, hx of thoracentesis x 3 (08/17, 08/30, 09/19), left breast biopsy, D&C, colonoscopy 09/2016 FHx: mother- DM, Aunt DM, Paternal heart disease Social: former Tobacco 1.5 pks for 30 years, former Alcohol use (no use since )- beer and liquor nightly, no drugs - Review of Systems General: reports: other (chills but no fever) Respiratory: reports: cough Cardiovascular: reports: orthopnea. denies: chest pain, palpitation Gastrointestinal: reports: nausea, vomiting, abdominal pain Genitourinary: reports: other (decreased urine output) Skin: reports: jaundice - Vital signs BP: [100/55] HR: [89] RR: [18] Tmax: [97.7] Pox: [97]% on [RA] Wt: [50kg] - Physical Exam Constitutional: awake, alert and oriented, other (cachectic) HEENT: normocephalic and atraumatic, EOMI, no scleral icterus Heart: RRR, normal S1/S2 Lungs: CTAB, no wheezing Abdomen: bowel sounds present, other -Abdomen: mild diffuse tenderness to palpation, shifting dullness to percussion, liver edge not palpable Skin: other (mild jaundice) Psychiatric: normal mood and affect, good judgment and insight FMR H&P: Results - Labs Result Diagrams: 10/10/17 13:52 10/10/17 13:52 Lab results: WBC 8.5 thou/uL (4.8-10.8) 10/10/17 13:52 Hgb 10.7 g/dL (12.0-16.0) L 10/10/17 13:52 Hct 30.9 % (36.0-47.0) L 10/10/17 13:52 MCV 110.0 fL (78.0-98.0) H 10/10/17 13:52 Plt Count 78 thou/uL (130-400) L 10/10/17 13:52 Band Neuts % (Manual) 5 % (5-11) 10/10/17 13:52 Sodium 125 mmol/L (136-145) L 10/10/17 13:52 Potassium 4.2 mmol/L (3.5-5.1) 10/10/17 13:52 Chloride 95 mmol/L (98-107) L 10/10/17 13:52 Carbon Dioxide 22 mmol/L (23-31) L 10/10/17 13:52 BUN 18 mg/dL (9.8-20.1) 10/10/17 13:52 Creatinine 1.51 mg/dL (0.6-1.1) H 10/10/17 13:52 Glucose 133 mg/dL (80-115) H 10/10/17 13:52 Calcium 8.3 mg/dL (7.8-10.44) 10/10/17 13:52 Total Bilirubin 5.0 mg/dL (0.2-1.2) H 10/10/17 13:52 AST 89 U/L (5-34) H 10/10/17 13:52 ALT 60 U/L (8-55) H 10/10/17 13:52 Alkaline Phosphatase 249 U/L (40-150) H 10/10/17 13:52 Ammonia 29 umol/L (18-72) 10/10/17 14:52 Serum Total Protein 5.9 g/dL (6.0-8.3) L 10/10/17 13:52 Albumin 2.1 g/dL (3.4-4.8) L 10/10/17 13:52 Lipase 72 U/L (8-78) 10/10/17 13:52 FMR H&P: A/P - Problem List (1) Dilutional hyponatremia Current Visit: Yes Status: Acute Code(s): E87.1 - HYPO-OSMOLALITY AND HYPONATREMIA (2) Abdominal pain Current Visit: Yes Status: Acute Code(s): R10.9 - UNSPECIFIED ABDOMINAL PAIN (3) Nausea & vomiting Current Visit: Yes Status: Acute Code(s): R11.2 - NAUSEA WITH VOMITING, UNSPECIFIED (4) Alcoholic cirrhosis of liver with ascites Current Visit: No Status: Chronic Code(s): K70.31 - ALCOHOLIC CIRRHOSIS OF LIVER WITH ASCITES Comment: Recurrent ascites in context ESLD, s/p paracentesis with 1.8L removed , Lasix 20mg po BID, and aldactone 50 mg po bid (5) Hyponatremia Current Visit: No Status: Chronic Code(s): E87.1 - HYPO-OSMOLALITY AND HYPONATREMIA (6) Thrombocytopenia Current Visit: No Status: Chronic Code(s): D69.6 - THROMBOCYTOPENIA, UNSPECIFIED (7) Pleural effusion associated with hepatic disorder Current Visit: Yes Status: Acute Code(s): K76.9 - LIVER DISEASE, UNSPECIFIED ; J91.8 - PLEURAL EFFUSION IN OTHER CONDITIONS CLASSIFIED ELSEWHERE - Plan 61 yr old female with alcoholic cirrhosis here with abdominal pain, Nausea, vomiting Hypervolemic Hyponatremia A- Na 125 on presentation P- Saline lock and fluid restriction Abdominal pain most likely 2/2 worsening ascites -2/2 to worsening ascites. low suspicion for SBP by exam, no WBC, and afebrile. -no distinct tenderness in RUQ -SBP ppx ABX Chronic macrocytic anemia -likely due to worsening liver function Nausea/vomiting -vomiting resolved since yesterday, likely caused by lactulose intolerance Refractory ascites -consult GI and if paracentesis indicated, will send for cx, cell count, and studies -consider if TIPS maybe a consideration for this patient Decompensated alcoholic cirrhosis -Pending INR to calculate MELD score, laboratory studies overall stable from last hospitalization. BP will be limiting factor to optimizing medication mgmt -continue aldactone and lasix chronic thrombocytopenia -2/2 cirrhosis/ESLD -stable from last hospitalization R Pleural effusion A- pt complains of no respiratory symptoms and has good O2 sats P- monitor repiratory status FMR H&P: Upper Level - Pertinent history 61 yr old female with PMH of alcoholic cirrhosis with refractory ascites, chronic macrocyti anemia, thrombocytopenia. Presents with 2 weeks of progressively worsening nausea and vomiting. Takes lactulose and makes her nauseated chronically. She reports that today she is coming in hoping for a paracentesis. Describes orthopnea. She sees Dr. Gregorio outpatient, saw him last a couple weeks ago. She denies hemoptysis, hematochezia , melena. Last thoracentesis On 09/19/2017 but had 2 prior to that. Paracentesis earlier this month in Dr. Gregorio office, she says the fluids recollects in a matter of 3 days. - Pertinent findings Gen: NAD, pleasant, in no respiratory distress Heart: RRR, NO M/R/G Lungs: breaths diminished on right side good air movement , CTA on left with good air movement Abd: distended, fluid wave present, mild tenderness diffusely, no rebound or guarding. Ext: 2+ pitting edema to abdomen - Plan Date/Time: 10/10/17 1707 I, [Glendy Carr], have evaluated this patient and agree with findings/plan as outlined by architecture internship resident. Pertinent changes/additions are listed here. 61 yr old female with alcoholic cirrhosis here with abdominal pain, Nausea, vomiting hypervolemic hyponatremia -fluid restriction -likely 2/2 cirrhosis -asymptomatic Abdominal pain most likely 2/2 worsening ascites -low suspicion for SBP by exam, no WBC, and afebrile -likely 2/2 overall discomfort associated with worsening ascites -no distinct tenderness in RUQ -on SBP ppx Nausea/vomiting -no episode of vomiting since yesterday -reports chronic nausea since starting lactulose right side pleural effusion with complete opacification - unchanged from 09/19 -consult Pulm in AM for possible thoracentesis -no hypoxia and no respiratory distress -untimatley patient likely to benefit from TIPS procedure. Refractory ascites -consult GI and if paracentesis indicated, will send for cx, cell count, and studies -consider if TIPS maybe a consideration for this patient Decompensated alcoholic cirrhosis - MELD score= 29 with 19.6% 3-month mortality -refractory ascites, see above -laboratory studies overall stable from last hospitalization (elevated bili, low albumin -continue aldactone and lasix, BP will be limiting factor to optimizing medication mgmt chronic thrombocytopenia -likely 2/2 cirrhosis/ESLD -stable, actually mildly improved from last hospitalization chronic macrocytic anemia - likely 2/2 ESLD
--- NOTE | 2017-10-10 18:32 | RAD ---
CHEST ONE VIEW: 10/10/17 HISTORY: Nausea and vomiting. Chest pain. COMPARISON: 09/19/17. FINDINGS: Complete opacification of the right hemithorax is again demonstrated. Pulmonary vasculature on the le ft is upper limits of normal. Patchy infiltrates throughout the left lung have increased. Mediastinum remains midline. No evidence of pneumothorax. IMPRESSION: Persistent complete opacification right hemithorax. Worsening patchy infiltrates within the left lung . Cause is not evident. POS: [facility]
[2017-10-10 18:38] LABS: INR-International Normal Ratio 1.7; PTT 44.5 SEC (22.9-36.1); Prothrombin Time 20.2 SEC (12.0-14.7)
[2017-10-10] MEDS ORDERED: Morphine 4 MG/ML VIAL SLOW IVP PRN (19:50)
[2017-10-10] MEDS ORDERED: Ondansetron HCl/PF 4 MG/2 ML Vial IVP PRN (19:53)
[2017-10-10] MEDS ORDERED: Ondansetron ODT 4 MG TAB SL PRN (19:53)
[2017-10-10 19:55] VITALS: BMI 20.1
[2017-10-10] MEDS ORDERED: Sodium Chloride 0.9% 1,000 ML IV SCH (20:00)
[2017-10-10] MEDS: Spironolactone 25 MG TAB PO SCH (21:32)
[2017-10-11] MEDS ORDERED: Lidocaine 1% (PF) 30 ML VIAL ONE (01:52)
[2017-10-11 05:34] LABS: ALT (SGPT) 56 U/L (8-55); AST (SGOT) 95 U/L (5-34); Albumin 1.9 g/dL (3.4-4.8); Alkaline Phosphatase 235 U/L (40-150); Anion Gap 10 mmol/L (10-20); BUN (Urea Nitrogen) 19 mg/dL (9.8-20.1); Calc. Creatinine Clearance 33 mL/min (70-130); Calcium 7.9 mg/dL (7.8-10.44); Carbon Dioxide 21 mmol/L (23-31); Chloride 96 mmol/L (98-107); Estimated GFR-MDRD 38; Globulin 3.3 g/dL (2.4-3.5); Glucose 136 mg/dL (80-115); Potassium 4.2 mmol/L (3.5-5.1); Protein, Total 5.2 g/dL (6.0-8.3); Sodium 123 mmol/L (136-145)
--- NOTE | 2017-10-11 05:46 | PDOC.EVN ---
Event Note - Event Note Event Note: DATE: 10/11/17 TIME: 0200 RESIDENT: Makeda Patterson MD SUPERVISING RESIDENT: Cyndi Garza MD ATTENDING PHYSICIAN: Dr Ray Atkinson MD CONSENT: Consent was obtained from patient prior to the procedures. Indications , risks, and benefits were explained at length. PARACENTESIS INDICATION: Symptomatic relief and testing of fluid Ultrasound used to sara location: Yes A time-out was performed verifying correct patient, procedure, site, positioning. Hands were washed immediately prior and surgical cap, mask with protective eyewear, sterile gown and sterile gloves were worn throughout the procedure. The LLQ of the abdomen was prepped and draped in a sterile fashion using chlorhexidine scrub. 1% lidocaine was used to numb the skin, soft tissue and peritoneum. The paracentesis catheter was inserted and advanced with negative pressure until serosanguinous colored fluid was aspirated. Approximately 40 mL of ascitic fluid was collected and sent for laboratory analysis. The catheter was then connected to the vaccutainer and 2700mls of additional ascitic fluid were drained. The catheter was removed and no leaking was noted. A bandaid was placed over the puncture wound. Estimated blood loss was <5ml The patient tolerated the procedure well without any immediate complications. THORACENTESIS Indication: Large pleural effusion A time-out was completed verifying correct patient, procedure, site, positioning. Hands were washed immediately prior and surgical cap, mask with protective eyewear, sterile gown and sterile gloves were worn throughout the procedure. The patients right side was prepped and draped in a sterile manner after the appropriate infiltration level was confirmed by ultrasound. 1% lidocaine was used anesthetize the surrounding skin. A finder needle was then used to locate fluid and clear yellow fluid was obtained. A 11-blade scalpel used to make the incision. The thoracentesis catheter was then threaded without difficulty. The patient had 1L of clear yellow fluid removed. Attending Physician was present for the entire procedure. A post-procedure chest x-ray was ordered and the fluid will be sent for several studies. Estimated Blood Loss: <5mls The patient tolerated the procedure well and there were no complications
[2017-10-11 06:00] LABS: Band 9 % (5-11); Eosinophils 1 % (0-10); Lymphocytes 4 % (21-51); MDiff Complete? YES; Macrocytosis SLIGHT = 6-15 cells (100X) (0-5/hpf); Mean Corpuscular HGB CONC 35.7 g/dL (32.0-36.0); Mean Corpuscular Hemoglobin 39.1 pg (27.0-31.0); Mean Platelet Volume 7.2 fL (7.4-10.4); Monocytes 10 % (0-10); Neutrophil 76 % (42-75); PLT Morphology Comment Appears Decreased; Platelet Count 79 thou/uL (130-400); RBC Distribution Width 14.4 % (11.5-14.5); Red Blood Cell (RBC) Count 2.56 mill/uL (4.20-5.40); White Blood Cell (WBC) Count 10.5 thou/uL (4.8-10.8)
--- NOTE | 2017-10-11 08:11 | RAD ---
SINGLE VIEW OF THE CHEST: COMPARISON: 10/10/17. HISTORY: Postprocedure chest x-ray. FINDINGS: A single view of the chest shows a normal-size cardiomediastinal silhouette. There is a significant decrease in the right sided pleural effusion compared to the prior radiograph. No pneumothorax is se en. A moderate to large right pleural effusion still remains. There are multiple small calcified pu nctate granulomas throughout both lungs. IMPRESSION: Decreased size of right pleural effusion without evidence of pneumothorax. POS: [facility]
[2017-10-11 08:51] LABS: Fluid, Amylase 5 U/L (Not Available); Fluid, Glucose 155 mg/dL (Not Available); Fluid, LDH Less than 25 U/L (Not Available); Fluid, Protein Less than 1.0 g/dL (Not Available)
[2017-10-11] MEDS ORDERED: Furosemide 20 MG TAB PO SCH (09:00)
[2017-10-11 09:10] LABS: BF Color Yellow; Body Fluid Source Ascites Body Fluid; Clarity Hazy (Clear); Tube # 2
[2017-10-11] MEDS: Folic Acid 1 MG TAB PO SCH (09:22)
[2017-10-11] MEDS: Potassium Chloride 20 MEQ TAB PO SCH (09:22)
--- NOTE | 2017-10-11 09:37 | PDOC.FM ---
- Subjective Subjective: Patient doing well this AM. No significant overnight events. She had paracentesis and thoracentesis performed at 2:00 AM. She states she is feeling better today. Long discussion was had regarding hospice and palliative care. Patient is agreeable to hospice discussion and would like to talk more about it with somebody. She has a clearer picture about her prognosis after discussion this morning and discussion last night with Dr. Atkinson. - Objective MAR Reviewed: Yes Vital Signs & Weight: Vital Signs (12 hours) Temp Pulse Resp BP Pulse Ox 10/11/17 09:27 94 94 L 10/11/17 07:19 97.9 F 92 16 94/61 85 L 10/11/17 03:33 97.5 F L 96 20 91/57 L 96 10/11/17 01:13 97.8 F 99 20 114/76 92 L 10/10/17 23:09 98.2 F 95 20 91/58 L 96 Weight Weight 49.895 kg Result Diagrams: 10/11/17 03:51 10/11/17 03:51 EKG Reviewed by me: No Radiology Reviewed by me: Yes <Rhina Hunter - Last Filed: 10/11/17 16:41> - Objective Vital Signs & Weight: Vital Signs (12 hours) Temp Pulse Resp BP Pulse Ox 10/14/17 07:46 98.4 F 114 H 22 H 94/64 100 Weight Admit Weight 49.895 kg Weight 49.895 kg I&O: 10/13/17 10/14/17 10/15/17 06:59 06:59 06:59 Intake Total 1600 25 Balance 1600 25 Result Diagrams: 10/12/17 10:32 10/13/17 04:44 <Taylor Donald - Last Filed: 10/14/17 10:35> Phys Exam - Physical Examination Constitutional: NAD HEENT: moist MMs sclera icteric Neck: no JVD Decreased breath sounds throughout on right Cardiovascular: RRR, no significant murmur Gastrointestinal: soft, non-tender, positive bowel sounds No fluid wave noted on exam Musculoskeletal: pulses present 2+ pitting edema bilateral lower extremities Neurological: non-focal Psychiatric: A&O x 3 Skin: no rash, cap refill <2 seconds <Rhina Hunter - Last Filed: 10/11/17 16:41> Dx/Plan (1) Abdominal pain Code(s): R10.9 - UNSPECIFIED ABDOMINAL PAIN Status: Acute (2) Dilutional hyponatremia Code(s): E87.1 - HYPO-OSMOLALITY AND HYPONATREMIA Status: Acute (3) Nausea & vomiting Code(s): R11.2 - NAUSEA WITH VOMITING, UNSPECIFIED Status: Acute (4) Pleural effusion associated with hepatic disorder Code(s): K76.9 - LIVER DISEASE, UNSPECIFIED; J91.8 - PLEURAL EFFUSION IN OTHER CONDITIONS CLASSIFIED ELSEWHERE Status: Acute (5) Pleural effusion, right Code(s): J90 - PLEURAL EFFUSION, NOT ELSEWHERE CLASSIFIED Status: Acute (6) Alcoholic cirrhosis of liver with ascites Code(s): K70.31 - ALCOHOLIC CIRRHOSIS OF LIVER WITH ASCITES Status: Chronic (7) Thrombocytopenia Code(s): D69.6 - THROMBOCYTOPENIA, UNSPECIFIED Status: Chronic - Plan Plan: 61 yr old female with alcoholic cirrhosis here with abdominal pain, Nausea, vomiting hypervolemic hyponatremia -fluid restriction -likely 2/2 cirrhosis -asymptomatic -continue to monitor Abdominal pain most likely 2/2 worsening ascites -low suspicion for SBP by exam, no WBC, and afebrile -likely 2/2 overall discomfort associated with worsening ascites -no distinct tenderness in RUQ -on SBP ppx -paracentesis performed; fluid analysis pending Nausea -reports chronic nausea since starting lactulose right side pleural effusion with complete opacification -unchanged from 09/19 -thoracentesis performed; fluid analysis pending -no hypoxia and no respiratory distress -untimatley patient likely to benefit from TIPS procedure but patient is unfunded Refractory ascites -Patient candidate for Hospice, will discuss at length with patient -consider if TIPS maybe a consideration for this patient Decompensated alcoholic cirrhosis -MELD score= 29 with 19.6% 3-month mortality -refractory ascites, see above -laboratory studies overall stable from last hospitalization (elevated bili, low albumin -continue aldactone and lasix; dose 100:40 chronic thrombocytopenia -likely 2/2 cirrhosis/ESLD -stable, actually mildly improved from last hospitalization chronic macrocytic anemia - likely 2/2 ESLD Dispo: Stable. Palliative to see patient regarding goals of care and to discuss hospice. <Rhina Hunter - Last Filed: 10/11/17 16:41> Attending Addendum - Attending Addendum Date/Time: 10/14/17 1031 I personally evaluated the patient and discussed the management with Dr. Hunter on 10/11/2017 I agree with the History, Examination, Assessment and Plan documented above with any addition or exceptions noted below- Patient without complaints. States abdominal distension is better since fluid removed. Afebrile VSS. A/P: 1) End stage liver disease with cirrhosis and ascites- s/p paracentesis and thoracenetsis- continue lasix and spironolactone; will increase lasix. Long discussion between Dr. Atkinson and patient and patient interested in palliative care and possibly hospice. Will have palliative care come see patient. <Taylor Donald - Last Filed: 10/14/17 10:35>
[2017-10-11] MEDS ORDERED: Ondansetron HCl/PF 4 MG/2 ML Vial IVP PRN (10:05)
[2017-10-11] MEDS ORDERED: Ondansetron ODT 8 MG TAB SL PRN (10:05)
[2017-10-11] MEDS: Spironolactone 25 MG TAB PO SCH ×2 (10:17→21:04)
[2017-10-11 10:42] LABS: BF RBC Count - Manual 1008 /cumm; BF WBC/Nonhematics Ct. - Manua 35 /cumm
[2017-10-11 10:46] LABS: BF Segmented Neutrophils 6 %; Cell Count Non Hematic 30 %; Lymphocytes 64 %
[2017-10-11 11:24] LABS: Fluid, pH - Pleural Fld 7.82
[2017-10-11] MEDS: Furosemide 20 MG TAB PO SCH (13:33)
[2017-10-11] MEDS ORDERED: Spironolactone 100 MG TAB PO SCH (21:00)
--- NOTE | 2017-10-12 06:40 | PDOC.FM ---
- Subjective Subjective: NAEO. Patient states she feels much better after having almost 4L of fluid removed yesterday. Denies any current N/V/D or abdominal pain. Also denies any SOB or chest pain. Would like to try to have something to eat this morning. Asked her about Palliative care meeting and patient states she has a lot of things to take care of before going on hospice or anything like that. Told her to talk to palliative care again to decide on ultimate goals of care. Patient is open to another meeting with PC. - Objective MAR Reviewed: Yes Vital Signs & Weight: Vital Signs (12 hours) Temp Pulse Resp BP Pulse Ox 10/11/17 20:00 98.1 F 88 16 99 10/11/17 19:44 98.1 F 88 16 84/51 L 99 Weight Admit Weight 49.895 kg Weight 49.895 kg I&O: 10/10/17 10/11/17 10/12/17 06:59 06:59 06:59 Intake Total 1410 Output Total 475 Balance 935 Result Diagrams: 10/12/17 10:32 10/12/17 12:03 <Lissett Taveras - Last Filed: 10/12/17 15:07> - Objective Vital Signs & Weight: Vital Signs (12 hours) Temp Pulse Resp BP Pulse Ox 10/12/17 20:00 97.8 F 85 16 85/53 L 98 10/12/17 16:00 98.1 F 86 18 84/52 L 100 10/12/17 12:00 97.6 F 94 14 89/56 L 98 Weight Admit Weight 49.895 kg Weight 49.895 kg I&O: 10/11/17 10/12/17 10/13/17 06:59 06:59 06:59 Intake Total 1410 490 Output Total 475 Balance 935 490 Result Diagrams: 10/12/17 10:32 10/12/17 12:03 <Mariely Berumen - Last Filed: 10/12/17 21:51> Phys Exam - Physical Examination Constitutional: NAD Frail, cachectic female lying in bed HEENT: moist MMs Neck: full ROM Respiratory: no wheezing, no rales, no rhonchi, clear to auscultation bilateral Cardiovascular: RRR, no significant murmur Gastrointestinal: soft, non-tender, positive bowel sounds mild distension w/ abdominal diastasis Musculoskeletal: no edema scattered bruising in both arms Neurological: non-focal, normal sensation, moves all 4 limbs Psychiatric: normal affect, A&O x 3 Skin: no rash, normal turgor <TaverasLissett - Last Filed: 10/12/17 15:07> Dx/Plan (1) Dilutional hyponatremia Code(s): E87.1 - HYPO-OSMOLALITY AND HYPONATREMIA Status: Acute (2) Abdominal pain Code(s): R10.9 - UNSPECIFIED ABDOMINAL PAIN Status: Acute (3) Nausea & vomiting Code(s): R11.2 - NAUSEA WITH VOMITING, UNSPECIFIED Status: Acute (4) Pleural effusion associated with hepatic disorder Code(s): K76.9 - LIVER DISEASE, UNSPECIFIED; J91.8 - PLEURAL EFFUSION IN OTHER CONDITIONS CLASSIFIED ELSEWHERE Status: Acute (5) Dyspnea Code(s): R06.00 - DYSPNEA, UNSPECIFIED Status: Acute (6) Pleural effusion, right Code(s): J90 - PLEURAL EFFUSION, NOT ELSEWHERE CLASSIFIED Status: Acute (7) Abnormal LFTs Code(s): R79.89 - OTHER SPECIFIED ABNORMAL FINDINGS OF BLOOD CHEMISTRY Status : Chronic (8) Alcoholic cirrhosis of liver Code(s): K70.30 - ALCOHOLIC CIRRHOSIS OF LIVER WITHOUT ASCITES Status: Chronic Qualifiers: Ascites presence: with ascites Qualified Code(s): K70.31 - Alcoholic cirrhosis of liver with ascites (9) Alcoholic cirrhosis of liver with ascites Code(s): K70.31 - ALCOHOLIC CIRRHOSIS OF LIVER WITH ASCITES Status: Chronic (10) Coagulopathy Status: Chronic (11) Esophageal varices Code(s): I85.00 - ESOPHAGEAL VARICES WITHOUT BLEEDING Status: Chronic Qualifiers: Esophageal varices bleeding: without bleeding (12) Macrocytic anemia Code(s): D53.9 - NUTRITIONAL ANEMIA, UNSPECIFIED Status: Chronic (13) GERD (gastroesophageal reflux disease) Code(s): K21.9 - GASTRO-ESOPHAGEAL REFLUX DISEASE WITHOUT ESOPHAGITIS Status: Chronic (14) Moderate protein-calorie malnutrition Code(s): E44.0 - MODERATE PROTEIN-CALORIE MALNUTRITION Status: Chronic (15) Thrombocytopenia Code(s): D69.6 - THROMBOCYTOPENIA, UNSPECIFIED Status: Chronic - Plan Plan: 61YOF with PMH of alcoholic cirrhosis who presented with a CC of abdominal pain with associated N/V. 1. hypervolemic hyponatremia: - Last measured Na down to 123 compared to 125 on admission. - Will continue with fluid restriction and PO lasix BID. - Likely 2/2 fluid overload from cirrhosis. - Patient remains asymptomatic. Will continue to monitor. Repeat BMP pending. 2. Abdominal pain w/ N/V: - Most likely 2/2 worsening ascites. Patient is s/p thorcentesis & paracentesis. Will continue w/ tx as outlined above for fluid overload. - SBP ruled out w/ ascitic fluid analysis and patient has remained afebrile & all other vitals have been WNL. - Will continue SBP ppx & IV morphine for pain control. - Fluid analysis significant for few suspicious cells suggesting possibility of underlying malignancy. 3. Nausea: - Patient reports chronic nausea since starting lactulose. - Will continue PRN zofran. 4. Right side pleural effusion with complete opacification: - This is unchanged from 09/19/17. - s/p thoracentesis. - Still no signs of hypoxia or respiratory distress. Will continue to monitor. 5. Refractory ascites: - Patient candidate for hospice and/or palliative care with comfort care taps as an option. - Palliative care is on board. Recommend hospice and patient and family are open to this. Hospice consult placed today. Awaiting recs. 6. Decompensated alcoholic cirrhosis: - MELD score= 29 with 19.6% 3-month mortality. Palliative care on board. - Laboratory studies overall stable from last hospitalization (elevated bili, low albumin, elevated LFTs) - Will continue aldactone and lasix BID as long as patient's BP can tolerate it. - Will continue to monitor vitals closely. 7. Chronic thrombocytopenia: - Likely 2/2 cirrhosis/ESLD - Plts stable in upper 70s since admission. 8. Chronic macrocytic anemia - Likely 2/2 ESLD - Will continue to monitor. - Will continue folic acid. 9. GERD: - Will continue protonix 40 QD. Dispo: Stable. Palliative care to see patient again and hopsice consult placed to discuss goals of care and plans following d/c. <Lissett Taveras - Last Filed: 10/12/17 15:07> Attending Addendum - Attending Addendum Date/Time: 10/12/17 6877 I personally evaluated the patient at 1005 am and discussed the management with Dr. Taveras. I agree with the History, Examination, Assessment and Plan documented above with any addition or exceptions noted below. End stage liver disease- patient interested in palliative care and hospice discussion but states that she has some things to take care of first. Probable d/c in the next few days as symptomatically improved after paracentesis/ thoracentesis. hyponatremia secondary to cirrhosis- na 123 and asymptomatic. continue fluid restriction and lasix (as bp will tolerate). <Mariely Berumen - Last Filed: 10/12/17 21:51>
[2017-10-12] MEDS: Folic Acid 1 MG TAB PO SCH (09:21)
[2017-10-12] MEDS: Potassium Chloride 20 MEQ TAB PO SCH (09:21)
[2017-10-12] MEDS: Spironolactone 25 MG TAB PO SCH ×2 (09:22→20:29)
[2017-10-12] MEDS: Furosemide 20 MG TAB PO SCH ×2 (09:22→14:51)
[2017-10-12 11:20] LABS: #Eosinphils 0.1 thou/uL (0.0-0.7); #Lymphocytes 0.8 thou/uL (1.20-3.40); #Monocytes 1.1 thou/uL (0.11-0.59); #Neutrophils 5.4 thou/uL (1.40-6.50); %Basophils 0.4 % (0.0-1.0); %Eosinophils 1.1 % (0.0-10.0); %Lymphocytes 11.4 % (21.0-51.0); %Monocytes 14.3 % (0.0-10.0); %Neutrophils 72.8 % (42.0-75.0); Hemoglobin 10.2 g/dL (12.0-16.0); MDiff Complete? YES; Mean Corpuscular HGB CONC 33.8 g/dL (32.0-36.0); Mean Corpuscular Hemoglobin 37.3 pg (27.0-31.0); Mean Platelet Volume 7.3 fL (7.4-10.4); PLT Morphology Comment Appears Decreased; Platelet Count 74 thou/uL (130-400); RBC Distribution Width 14.3 % (11.5-14.5); Red Blood Cell (RBC) Count 2.74 mill/uL (4.20-5.40); White Blood Cell (WBC) Count 7.4 thou/uL (4.8-10.8)
[2017-10-12 12:26] LABS: Anion Gap 12 mmol/L (10-20); BUN (Urea Nitrogen) 23 mg/dL (9.8-20.1); Calc. Creatinine Clearance 30 mL/min (70-130); Calcium 7.7 mg/dL (7.8-10.44); Carbon Dioxide 20 mmol/L (23-31); Chloride 96 mmol/L (98-107); Estimated GFR-MDRD 34; Glucose 139 mg/dL (80-115); Potassium 4.7 mmol/L (3.5-5.1); Sodium 123 mmol/L (136-145)
[2017-10-12] MEDS: Ibuprofen 600 MG TAB PO PRN (17:33)
[2017-10-13 05:41] LABS: Anion Gap 12 mmol/L (10-20); BUN (Urea Nitrogen) 26 mg/dL (9.8-20.1); Calc. Creatinine Clearance 25 mL/min (70-130); Calcium 7.7 mg/dL (7.8-10.44); Carbon Dioxide 19 mmol/L (23-31); Chloride 94 mmol/L (98-107); Estimated GFR-MDRD 28; Glucose 89 mg/dL (80-115); Potassium 5.4 mmol/L (3.5-5.1); Sodium 120 mmol/L (136-145)
--- NOTE | 2017-10-13 06:32 | PDOC.FM ---
- Subjective Subjective: NAEO. Patient difficult to arouse on exam. A&Ox2 with me but A&Ox3 with upper level resident. However, not able to converse normally with either as she was in and out of consciousness during questioning. Per chart review patient opted for no hospice as she would like to still have the option to have therapeutic thoracenteses and paracenteses and PC told her this was not an option. Otherwise patient just reported being tired. No other complaints. - Objective MAR Reviewed: Yes Vital Signs & Weight: Vital Signs (12 hours) Temp Pulse Resp BP Pulse Ox 10/12/17 20:00 97.8 F 85 16 85/53 L 98 Weight Admit Weight 49.895 kg Weight 49.895 kg I&O: 10/11/17 10/12/17 10/13/17 06:59 06:59 06:59 Intake Total 1410 750 Output Total 475 Balance 935 750 Result Diagrams: 10/12/17 10:32 10/13/17 04:44 <Lissett Taveras - Last Filed: 10/13/17 12:16> - Objective Vital Signs & Weight: Vital Signs (12 hours) Temp Pulse Resp BP Pulse Ox 10/13/17 11:21 97.4 F L 88 16 88/60 L 95 10/13/17 08:00 97.4 F L 88 16 100 10/13/17 07:29 97.7 F 86 18 91/52 L 100 Weight Admit Weight 49.895 kg Weight 49.895 kg I&O: 10/12/17 10/13/17 10/14/17 06:59 06:59 06:59 Intake Total 1410 1600 Output Total 475 Balance 935 1600 Result Diagrams: 10/12/17 10:32 10/13/17 04:44 <Mariely Berumen - Last Filed: 10/13/17 12:38> Phys Exam - Physical Examination Constitutional: NAD Frail appearing female lying in bed in NAD normocephalic, atraumatic Neck: full ROM Respiratory: no wheezing, no rales, no rhonchi, clear to auscultation bilateral Cardiovascular: RRR, no significant murmur, no rub Gastrointestinal: soft, non-tender, no distention, positive bowel sounds Musculoskeletal: no edema Neurological: non-focal, normal sensation, moves all 4 limbs Psychiatric: normal affect Deviation from normal: A&Ox3 but had took a lot of time answering questions appropriately Skin: no rash <Lissett Taveras - Last Filed: 10/13/17 12:16> Dx/Plan (1) Dilutional hyponatremia Code(s): E87.1 - HYPO-OSMOLALITY AND HYPONATREMIA Status: Acute (2) Abdominal pain Code(s): R10.9 - UNSPECIFIED ABDOMINAL PAIN Status: Acute (3) Nausea & vomiting Code(s): R11.2 - NAUSEA WITH VOMITING, UNSPECIFIED Status: Acute (4) Pleural effusion associated with hepatic disorder Code(s): K76.9 - LIVER DISEASE, UNSPECIFIED; J91.8 - PLEURAL EFFUSION IN OTHER CONDITIONS CLASSIFIED ELSEWHERE Status: Acute (5) Dyspnea Code(s): R06.00 - DYSPNEA, UNSPECIFIED Status: Acute (6) Pleural effusion, right Code(s): J90 - PLEURAL EFFUSION, NOT ELSEWHERE CLASSIFIED Status: Acute (7) Abnormal LFTs Code(s): R79.89 - OTHER SPECIFIED ABNORMAL FINDINGS OF BLOOD CHEMISTRY Status : Chronic (8) Alcoholic cirrhosis of liver Code(s): K70.30 - ALCOHOLIC CIRRHOSIS OF LIVER WITHOUT ASCITES Status: Chronic Qualifiers: Ascites presence: with ascites Qualified Code(s): K70.31 - Alcoholic cirrhosis of liver with ascites (9) Alcoholic cirrhosis of liver with ascites Code(s): K70.31 - ALCOHOLIC CIRRHOSIS OF LIVER WITH ASCITES Status: Chronic (10) Coagulopathy Status: Chronic (11) Esophageal varices Code(s): I85.00 - ESOPHAGEAL VARICES WITHOUT BLEEDING Status: Chronic Qualifiers: Esophageal varices bleeding: without bleeding (12) Macrocytic anemia Code(s): D53.9 - NUTRITIONAL ANEMIA, UNSPECIFIED Status: Chronic (13) GERD (gastroesophageal reflux disease) Code(s): K21.9 - GASTRO-ESOPHAGEAL REFLUX DISEASE WITHOUT ESOPHAGITIS Status: Chronic (14) Moderate protein-calorie malnutrition Code(s): E44.0 - MODERATE PROTEIN-CALORIE MALNUTRITION Status: Chronic (15) Thrombocytopenia Code(s): D69.6 - THROMBOCYTOPENIA, UNSPECIFIED Status: Chronic - Plan Plan: 61YOF with PMH of alcoholic cirrhosis who presented with a CC of abdominal pain with associated N/V. 1. hypervolemic hyponatremia: - Na down to 120 this am and patient is more difficult to arouse this AM. Patient did not receive spironolactone last night but did get PM lasix dose. - Will continue with fluid restriction and PO lasix & spironolactone BID. - Likely 2/2 decompensated ESLD. - Will proceed with either treating medically after consulting nephrology OR refer for likely inpatient hospice at this point if no improvement in mentation later today. 2. Abdominal pain w/ N/V: - Most likely 2/2 worsening ascites patient is s/p thorcentesis & paracentesis & reports resolution of symptoms. - Will continue w/ tx as outlined above for fluid overload prevention. - Ascitic fluid analysis negative for SBP; however, did see a few suspicious cells suggesting possibility of underlying malignancy. Cytology still pending. - Will continue SBP ppx & IV morphine for pain control. 3. Nausea: - Patient reports chronic nausea since starting lactulose. - Will continue PRN zofran. 4. Right side pleural effusion with complete opacification: - This is unchanged from 09/19/17. - s/p thoracentesis. - Still no signs of hypoxia or respiratory distress. Will continue to monitor. 5. Refractory ascites: - Patient candidate for hospice and/or palliative care with comfort care taps as an option. - Palliative care is on board but stated patient is not hospice candidate as she desires to continue taps PRN as long as she is physically able to come and have this done. - Will reach out to palliative care today to set up family meeting to discuss the options patient has with hospice as we are willing to perform therapeutic fluid removal at our clinic. 6. Decompensated alcoholic cirrhosis: - MELD score= 29 with 19.6% 3-month mortality. Palliative care on board. - Laboratory studies overall stable from last hospitalization (elevated bili, low albumin, elevated LFTs) - Will continue aldactone and lasix BID as long as patient's BP can tolerate it. - Will continue to monitor vitals closely. 7. Chronic thrombocytopenia: - Likely 2/2 cirrhosis/ESLD - Plts stable in upper 70s since admission. 8. Chronic macrocytic anemia - Likely 2/2 ESLD - Will continue to monitor. - Will continue folic acid. 9. GERD: - Will continue protonix 40 QD. Dispo: Will plan to meet with family and PC today to discuss care options. Will recommend hopsice and possibly even inpatient hospice at this point. <Lissett Taveras - Last Filed: 10/13/17 12:16> Attending Addendum - Attending Addendum Date/Time: 10/13/17 1236 I personally evaluated the patient at 0935 and discussed the management with Dr. Taveras. I agree with the History, Examination, Assessment and Plan documented above with any addition or exceptions noted below. ESLD with hyponatremia- Na down to 120 and patients mentation is less lucid. Will need discussion with palliative care team and family to ensure everyone on same page. Options at this time are hospice vs consult nephrology for assistance in treating hyponatremia that has been refractory to our fluid restriction and po lasix. <Mariely Berumen - Last Filed: 10/13/17 12:38>
[2017-10-13] MEDS: Folic Acid 1 MG TAB PO SCH (10:00)
[2017-10-13] MEDS: Furosemide 20 MG TAB PO SCH ×2 (12:10→15:46)
[2017-10-13] MEDS: Spironolactone 25 MG TAB PO SCH ×2 (12:11→19:59)
[2017-10-13] MEDS: Potassium Chloride 20 MEQ TAB PO SCH (12:11)
[2017-10-13] MEDS: Ibuprofen 600 MG TAB PO PRN (14:33)
[2017-10-13] MEDS ORDERED: Lorazepam 2 MG/ML VIAL ONE (19:44)
[2017-10-13] MEDS ORDERED: Lorazepam 2 MG/ML VIAL SLOW IVP SCH (20:00)
--- NOTE | 2017-10-13 20:33 | PDOC.EVN ---
Event Note - Event Note Event Note: Called to bedside around 1919 due to nurse report that patient is agitated, disoriented, in pain but nurse was unable to localize pain since patient was not verbally communicating. Arrived at bedside and patient was agitated, rolling around the bed, moaning saying "let me go" Mentation alcaraz, she was awake but physically agitated. Prior to this episode it was reported patient was sleeping, woke up and became agitated. She was given 4mg of morphine but remained agitated. Nurse present reported patient's baseline is A&O x4 but has been waxing and waning today. Vital signs were stable: 122/51, 89bpm, 94% on RA , 97.6F. Patient was not able to confirm whether she was in pain for me. PE of patient was unremarkable aside from slightly distended abd, likely from cirrhosis with no increase in distress with palpation. Patient was given 1mg of Ativan and calmed down. Will add ativan prn to medication schedule. Of note, Patient's sister (EVA) was contacted to verify decision of hospice, and it seems that it was decided today family would prefer inpatient hospice. Pending hospice screen. Due to hospice status, no labs were drawn as patient was vitally stable. No sitter available, but will not transfer since patient has bed alarms installed and during agitated state did not make attempt to get out of bed. Most recent ammonia level drawn on 09/30 was wnl at 29. Patient is not on lactulose but had 3 BM yesterday, none today. Will continue to monitor closely.
[2017-10-13] MEDS ORDERED: Lorazepam 2 MG/ML VIAL SLOW IVP PRN (20:38)
[2017-10-14] MEDS: Furosemide 20 MG TAB PO SCH (08:40)
[2017-10-14] MEDS: Folic Acid 1 MG TAB PO SCH (08:40)
[2017-10-14] MEDS: Spironolactone 25 MG TAB PO SCH (08:41)
[2017-10-14] MEDS: Potassium Chloride 20 MEQ TAB PO SCH (08:41)
--- NOTE | 2017-10-14 09:31 | PDOC.FM ---
- Subjective Subjective: Patient deteriorating overnight. She is now requiring face mask at 9L to maintain sats. She is not very arousable and cannot answer questions. Will contact to have inpatient hospice re-evaluation. Had family discussion regarding patient's current status. Inpatient hospice came and re-evaluated and deemed candidate for inpatient. Efforts are being made to transport to inpatient hospice at this time. All family in the room and present during conversation. Everyone agreeable with plan. - Objective MAR Reviewed: Yes Vital Signs & Weight: Vital Signs (12 hours) Temp Pulse Resp BP BP Pulse Ox 10/14/17 07:46 98.4 F 114 H 22 H 94/64 100 10/13/17 22:00 16 10/13/17 21:39 97.5 F L 97 91/67 98 Weight Admit Weight 49.895 kg Weight 49.895 kg I&O: 10/13/17 10/14/17 10/15/17 06:59 06:59 06:59 Intake Total 1600 25 Balance 1600 25 Result Diagrams: 10/12/17 10:32 10/13/17 04:44 EKG Reviewed by me: No Radiology Reviewed by me: Yes <Rhina Hunter - Last Filed: 10/14/17 12:07> - Objective Vital Signs & Weight: Vital Signs (12 hours) Temp Pulse Resp BP Pulse Ox 10/14/17 08:00 98.4 F 114 H 22 H 98 10/14/17 07:46 98.4 F 114 H 22 H 94/64 100 Weight Admit Weight 49.895 kg Weight 49.895 kg I&O: 10/13/17 10/14/17 10/15/17 06:59 06:59 06:59 Intake Total 1600 25 Balance 1600 25 Result Diagrams: 10/12/17 10:32 10/13/17 04:44 <Juventino Stacy - Last Filed: 10/14/17 13:14> Phys Exam - Physical Examination Lethargic, agonal breathing Dry mucous membranes Neck: supple Coarse rhonci throughout Cardiovascular: no significant murmur Tachycardic Gastrointestinal: soft, no distention Responds with grimace on face to palpation Decreased peripheral pulses Neurological: non-focal GSC 9 Deviation from normal: Lethargic, unable to orient Skin: no rash, cap refill <2 seconds <Rhina Hunter - Last Filed: 10/14/17 12:07> Dx/Plan (1) Abdominal pain Code(s): R10.9 - UNSPECIFIED ABDOMINAL PAIN Status: Acute (2) Dilutional hyponatremia Code(s): E87.1 - HYPO-OSMOLALITY AND HYPONATREMIA Status: Acute (3) Nausea & vomiting Code(s): R11.2 - NAUSEA WITH VOMITING, UNSPECIFIED Status: Acute (4) Pleural effusion associated with hepatic disorder Code(s): K76.9 - LIVER DISEASE, UNSPECIFIED; J91.8 - PLEURAL EFFUSION IN OTHER CONDITIONS CLASSIFIED ELSEWHERE Status: Acute (5) Pleural effusion, right Code(s): J90 - PLEURAL EFFUSION, NOT ELSEWHERE CLASSIFIED Status: Acute (6) Alcoholic cirrhosis of liver with ascites Code(s): K70.31 - ALCOHOLIC CIRRHOSIS OF LIVER WITH ASCITES Status: Chronic (7) Thrombocytopenia Code(s): D69.6 - THROMBOCYTOPENIA, UNSPECIFIED Status: Chronic - Plan Plan: 61YOF with PMH of alcoholic cirrhosis who presented with a CC of abdominal pain with associated N/V. Family has decided on inpatient Hospice. Goals are to make patient comfortable. 1. hypervolemic hyponatremia: - Likely 2/2 decompensated ESLD 2. Abdominal pain w/ N/V: - Most likely 2/2 worsening ascites patient is s/p thorcentesis & paracentesis & reports resolution of symptoms. - Will continue w/ tx as outlined above for fluid overload prevention. However, patient now on Hospice. No aggressive management. - Ascitic fluid analysis negative for SBP; however, did see a few suspicious cells suggesting possibility of underlying malignancy. Cytology still pending. Patient now hospice. - Will continue SBP ppx & IV morphine for pain control. - Patient given a dose of ativan overnight 4. Right side pleural effusion with complete opacification: - s/p thoracentesis. 5. Refractory ascites: - Patient going to inpatient hospice today. 6. Decompensated alcoholic cirrhosis: - MELD score= 29 with 19.6% 3-month mortality. Palliative care on board. Patient going to inpatient hospice. 7. Chronic thrombocytopenia: - Likely 2/2 cirrhosis/ESLD 8. Chronic macrocytic anemia - Likely 2/2 ESLD 9. GERD: Dispo: Had discussion with family. Inpatient hospice re-evaluated and deemed candidate for inpatient services. I was honest about patient's prognosis. Spoke with CM and filled out paperwork to have patient transferred to inpatient hopsice. <Rhian Hunter - Last Filed: 10/14/17 12:07> Attending Addendum - Attending Addendum Date/Time: 10/14/17 1314 I personally evaluated the patient and discussed the management with Dr. Hunter. I agree with the History, Examination, Assessment and Plan documented above with any addition or exceptions noted below. Present for family discussion today. Transfer to inpatient hospice pending. <Juventino Stacy - Last Filed: 10/14/17 13:14>
[2017-10-14 13:31] VITALS: BP 66/42; TEMP 98.1
== END 2017-10-14 13:35 | disposition hospice, inpatient (51) | DRG 433 ==
LOC: ERS 12:32 → T4-A 15:41
PROVIDERS: ADMIT Family Medicine; ATTEND Family Medicine
PROC: 0W9B3ZZ Drainage of Left Pleural Cavity, Percutaneous Approach (ICD-10-PCS; principal; 2017-10-11)
PROC: 0W9G3ZZ Drainage of Peritoneal Cavity, Percutaneous Approach (ICD-10-PCS; 2017-10-11)
DX: K70.31 Alcoholic cirrhosis of liver with ascites (principal); E87.1 Hypo-osmolality and hyponatremia; J90 Pleural effusion, not elsewhere classified; D68.9 Coagulation defect, unspecified; E44.0 Moderate protein-calorie malnutrition; I85.00 Esophageal varices without bleeding; K76.9 Liver disease, unspecified; D69.6 Thrombocytopenia, unspecified; D64.9 Anemia, unspecified; K21.9 Gastro-esophageal reflux disease without esophagitis
CPT/HCPCS: 32554; 36415; 71045; 80048; 80053; 82140; 82150; 82570; 82945; 83615; 83690; 83930; 83986; 84157; 84300; 85025; 85060; 85610; 85730; 87070; 87205; 88112; 89051; J2001; J2060; J2270